=== PATIENT | female | born 1935 | race American Indian/Alaskan Native ===

== ENCOUNTER 2017-12-18 11:23 | Emergency (ER) | payer OTHER ==
[~2017-12-18] VITALS: Ht 152.4 cm; Wt 78.9 kg
[~2017-12-18 11:23] MED LIST: ACET325 PO; ALBU90OI61 INH; ASPI81EC PO; Aspir 8181 MG PO; CELE200; CIPR500 PO; CLOB.05TC; CLOB.05TC TOP; CYCL10 PO; DOCSEN PO; DOCU100 PO; ERGO50000 PO; ESCI10 PO; FAMO20 PO; FERR325 PO; GAVILAX17 GM PO; HYDACE7.5 PO; HYDR1TAB94 PO; LIDO700A20 TOP; METR500 PO; PROAIR RESPICL90 MCG IH; RANI150 PO; SENN187 PO; SIMV10 PO; SULTRIDS PO; TRAM50 PO; VITNEPH PO
[2017-12-18] MEDS ORDERED: Ultram50 MG PO (12:18)
== END 2017-12-18 12:31 | disposition home or self-care (01) ==
LOC: ER 11:23
DX: M53.3 Sacrococcygeal disorders, not elsewhere classified (principal); E11.9 Type 2 diabetes mellitus without complications; I10 Essential (primary) hypertension; Z79.899 Other long term (current) drug therapy; Z79.82 Long term (current) use of aspirin
CPT/HCPCS: 99283

== ENCOUNTER 2018-04-18 14:43 | Emergency (ER) | payer OTHER ==
[~2018-04-18] VITALS: Ht 167.6 cm; Wt 74.8 kg
[~2018-04-18 14:43] MED LIST changes: +Ultram50 MG PO
[2018-04-18 15:39] LABS: BASOPHILS ABSOLUTE AUTO 0.03 K/mm3 (0.00-0.23); BASOPHILS PERCENT AUTO 0 % (0-2); EOSINOPHILS ABSOLUTE AUTO 0.04 K/mm3 (0.00-0.68); EOSINOPHILS PERCENT AUTO 1 % (0-6); Hemoglobin 11.9 g/dL (11.5-16.0); IMMATURE GRAN ABSOLUTE AUTO 0.02 K/mm3 (0.00-0.10); IMMATURE GRAN PERCENT AUTO 0 % (0-1); LYMPHOCYTES ABSOLUTE AUTO 1.55 K/mm3 (0.84-5.20); LYMPHOCYTES PERCENT AUTO 23 % (21-46); MONOCYTES ABSOLUTE AUTO 0.69 K/mm3 (0.16-1.47); MONOCYTES PERCENT AUTO 10 % (4-13); Mean Corpuscular HGB 29.9 pg (26.0-34.0); Mean Corpuscular HGB Conc 33.1 g/dL (31.5-36.5); Mean Corpuscular Volume 91 fL (80-100); Mean Platelet Volume 12.5 fL (9.1-12.4); NEUTROPHILS ABSOLUTE AUTO 4.37 K/mm3 (1.96-9.15); NEUTROPHILS PERCENT AUTO 65 % (41-73); Platelet Count 154 K/mm3 (150-400); RDW Coefficient Variation 14.1 % (11.7-14.2); RDW Standard Deviation 47.1 fL (35.1-46.3); Red Blood Cell Count 3.98 M/mm3 (3.80-5.20)
[2018-04-18 16:00] LABS: Alanine Aminotransfer (ALT/SGP 17 U/L (12-78); Albumin, Blood 3.7 g/dL (3.4-5.0); Albumin/Globulin Ratio 1.2 (0.8-1.8); Alk Phos 91 U/L (50-136); Anion Gap 8 mmol/L (6-16); Aspartate Aminotrans (AST/SGOT 13 U/L (12-37); Bilirubin, Total 0.4 mg/dL (0.1-1.0); Blood Urea Nitrogen 13 mg/dL (8-24); Bun/Creatinine Ratio 19.5 (12.0-20.0); CO2, Blood 27 mmol/L (21-32); Calcium, Blood 8.6 mg/dL (8.5-10.1); Chloride, Blood 111 mmol/L (98-108); Creatinine, Blood 0.67 mg/dL (0.40-1.00); Ethanol (Alcohol), Blood, Med <3 mg/dL; Globulin, Blood 3.1 g/dL (2.2-4.0); Glomerular Filtration Rate >60 (60-); Glucose, Blood 86 mg/dL (70-99); Sodium, Blood 146 mmol/L (136-145); Total Protein, Blood 6.8 g/dL (6.4-8.2); Troponin I <0.015 ng/mL (0.000-0.040)
[2018-04-18 16:39] LABS: Source, Urine Clean Catch
[2018-04-18 16:43] LABS: Bilirubin, Urine Neg (Neg); Blood, Urine Neg (Neg); Glucose Qualitative, Urine Neg (Neg); Ketones, Urine Neg (Neg); Leukocyte Esterase, Urine Neg (Neg); Nitrite, Urine Neg (Neg); Protein, Urine Neg (Neg); Urobilinogen, Urine NORM (Normal); pH, Urine 6.5 (5.0-8.0)
[2018-04-18 16:59] LABS: Appearance, Urine Clear (Clear); Color, Urine Yellow (P-Yellow)
[2018-04-18 17:05] LABS: U Amphetamine Screen Not Detected; U Barbituate Screen Not Detected; U Benzodiazapine Screen Not Detected; U Buprenorphine Screen Not Detected; U Cannabinoids Screen Not Detected; U Cocaine Screen Not Detected; U Methadone Screen Not Detected; U Methamphetamine Screen Not Detected; U Opiates Screen Not Detected; U Oxycodone Screen Not Detected; U Phencyclidine Screen Not Detected; U Propoxyphene Screen Not Detected
== END 2018-04-18 17:45 | disposition home or self-care (01) ==
LOC: ER 14:43
PROVIDERS: Emergency Medicine
DX: I10 Essential (primary) hypertension (principal); F32.9 Major depressive disorder, single episode, unspecified; Z79.899 Other long term (current) drug therapy; Z79.82 Long term (current) use of aspirin; E11.9 Type 2 diabetes mellitus without complications
CPT/HCPCS: 36415; 71046; 80053; 81003; 84443; 84484; 85025; 93005; 93010; 96374; 99283; G0480; J2060

== ENCOUNTER 2018-06-25 16:30 | Emergency (ER) | payer OTHER ==
[~2018-06-25] VITALS: Ht 152.4 cm; Wt 77.6 kg
[2018-06-25 17:28] LABS: Alanine Aminotransfer (ALT/SGP 17 U/L (12-78); Albumin/Globulin Ratio 1.1 (0.8-1.8); Alk Phos 107 U/L (50-136); Anion Gap 7 mmol/L (6-16); Aspartate Aminotrans (AST/SGOT 14 U/L (12-37); Bilirubin, Total 0.5 mg/dL (0.1-1.0); Blood Urea Nitrogen 15 mg/dL (8-24); CO2, Blood 28 mmol/L (21-32); Calcium, Blood 8.9 mg/dL (8.5-10.1); Chloride, Blood 108 mmol/L (98-108); Creatinine, Blood 0.68 mg/dL (0.40-1.00); Globulin, Blood 3.6 g/dL (2.2-4.0); Glomerular Filtration Rate >60 (60-); Glucose, Blood 78 mg/dL (70-99); Potassium, Blood 3.9 mmol/L (3.5-5.5); Sodium, Blood 143 mmol/L (136-145); Total Protein, Blood 7.6 g/dL (6.4-8.2); Troponin I <0.015 ng/mL (0.000-0.040)
[2018-06-25 17:29] LABS: BASOPHILS ABSOLUTE AUTO 0.04 K/mm3 (0.00-0.23); BASOPHILS PERCENT AUTO 1 % (0-2); EOSINOPHILS ABSOLUTE AUTO 0.04 K/mm3 (0.00-0.68); EOSINOPHILS PERCENT AUTO 1 % (0-6); Hematocrit 38.4 % (33.0-51.0); Hemoglobin 12.4 g/dL (11.5-16.0); IMMATURE GRAN ABSOLUTE AUTO 0.01 K/mm3 (0.00-0.10); IMMATURE GRAN PERCENT AUTO 0 % (0-1); LYMPHOCYTES ABSOLUTE AUTO 1.83 K/mm3 (0.84-5.20); LYMPHOCYTES PERCENT AUTO 26 % (21-46); MONOCYTES ABSOLUTE AUTO 0.68 K/mm3 (0.16-1.47); MONOCYTES PERCENT AUTO 10 % (4-13); Mean Corpuscular HGB 29.4 pg (26.0-34.0); Mean Corpuscular HGB Conc 32.3 g/dL (31.5-36.5); Mean Corpuscular Volume 91 fL (80-100); Mean Platelet Volume 11.7 fL (9.1-12.4); NEUTROPHILS ABSOLUTE AUTO 4.32 K/mm3 (1.96-9.15); NEUTROPHILS PERCENT AUTO 63 % (41-73); Platelet Count 167 K/mm3 (150-400); RDW Coefficient Variation 13.6 % (11.7-14.2); RDW Standard Deviation 45.7 fL (35.1-46.3); Red Blood Cell Count 4.22 M/mm3 (3.80-5.20); White Blood Cell Count 6.92 K/mm3 (4.00-11.30)
[2018-06-25 19:30] LABS: Source, Urine Clean Catch
[2018-06-25 19:42] LABS: Bilirubin, Urine Neg (Neg); Blood, Urine 1+ (Neg); Glucose Qualitative, Urine Neg (Neg); Ketones, Urine 2+ (Neg); Leukocyte Esterase, Urine 2+ (Neg); Nitrite, Urine Neg (Neg); Protein, Urine Neg (Neg); Urobilinogen, Urine NORM (Normal)
[2018-06-25 19:48] LABS: Appearance, Urine Hazy (Clear); Color, Urine Yellow (P-Yellow)
[2018-06-25 19:50] LABS: Bacteria Few /hpf; Squamous Epithelial Cells Few /hpf (Few)
[2018-06-25] MEDS ORDERED: Macrobid 100 M100 MG PO (19:58)
== END 2018-06-25 20:06 | disposition home or self-care (01) ==
LOC: ER 16:30
PROVIDERS: Emergency Medicine; Physician Assistant
DX: R07.89 Other chest pain (principal); N39.0 Urinary tract infection, site not specified; F32.9 Major depressive disorder, single episode, unspecified; E11.9 Type 2 diabetes mellitus without complications; I10 Essential (primary) hypertension; Z79.899 Other long term (current) drug therapy; Z79.82 Long term (current) use of aspirin
CPT/HCPCS: 36415; 71046; 80053; 81001; 84484; 85025; 87086; 87147; 93005; 93010; 99285-25

== ENCOUNTER 2019-07-27 20:24 | Emergency (ER) | payer OTHER ==
[~2019-07-27] VITALS: Ht 152.4 cm; Wt 72.5 kg
[~2019-07-27 20:24] MED LIST changes: +Macrobid 100 M100 MG PO
[2019-07-27 21:41] LABS: BASOPHILS ABSOLUTE AUTO 0.03 K/mm3 (0.00-0.23); BASOPHILS PERCENT AUTO 0 % (0-2); EOSINOPHILS PERCENT AUTO 1 % (0-6); Hematocrit 37.9 % (33.0-51.0); Hemoglobin 12.3 g/dL (11.5-16.0); IMMATURE GRAN ABSOLUTE AUTO 0.03 K/mm3 (0.00-0.10); IMMATURE GRAN PERCENT AUTO 0 % (0-1); LYMPHOCYTES ABSOLUTE AUTO 1.92 K/mm3 (0.84-5.20); LYMPHOCYTES PERCENT AUTO 26 % (21-46); MONOCYTES ABSOLUTE AUTO 0.96 K/mm3 (0.16-1.47); MONOCYTES PERCENT AUTO 13 % (4-13); Mean Corpuscular HGB 30.8 pg (26.0-34.0); Mean Corpuscular HGB Conc 32.5 g/dL (31.5-36.5); Mean Corpuscular Volume 95 fL (80-100); Mean Platelet Volume 11.7 fL (9.1-12.4); NEUTROPHILS ABSOLUTE AUTO 4.31 K/mm3 (1.96-9.15); NEUTROPHILS PERCENT AUTO 59 % (41-73); Platelet Count 151 K/mm3 (150-400); RDW Coefficient Variation 14.1 % (11.7-14.2); RDW Standard Deviation 49.1 fL (35.1-46.3); Red Blood Cell Count 3.99 M/mm3 (3.80-5.20); White Blood Cell Count 7.35 K/mm3 (4.00-11.30)
[2019-07-27 22:01] LABS: Alanine Aminotransfer (ALT/SGP 12 U/L (12-78); Albumin, Blood 3.5 g/dL (3.4-5.0); Albumin/Globulin Ratio 1.1 (0.8-1.8); Alk Phos 105 U/L (50-136); Anion Gap 4 mmol/L (6-16); Aspartate Aminotrans (AST/SGOT 12 U/L (12-37); Bilirubin, Total 0.3 mg/dL (0.1-1.0); Blood Urea Nitrogen 17 mg/dL (8-24); Bun/Creatinine Ratio 19.2 (12.0-20.0); CO2, Blood 30 mmol/L (21-32); Calcium, Blood 8.5 mg/dL (8.5-10.1); Chloride, Blood 113 mmol/L (98-108); Creatinine, Blood 0.89 mg/dL (0.40-1.00); Globulin, Blood 3.2 g/dL (2.2-4.0); Glomerular Filtration Rate >60 (60-); Glucose, Blood 116 mg/dL (70-99); Potassium, Blood 4.1 mmol/L (3.5-5.5); Sodium, Blood 147 mmol/L (136-145); Total Protein, Blood 6.7 g/dL (6.4-8.2); Troponin I <0.015 ng/mL (0.000-0.040)
[2019-07-27] MEDS ORDERED: IBUP600 PO (22:34)
== END 2019-07-27 22:45 | disposition home or self-care (01) ==
LOC: ER 20:24
PROVIDERS: Emergency Medicine
DX: M94.0 Chondrocostal junction syndrome [Tietze] (principal); Z79.82 Long term (current) use of aspirin; E11.9 Type 2 diabetes mellitus without complications; I10 Essential (primary) hypertension
CPT/HCPCS: 36415; 71046; 80053; 84484; 85025; 93005; 93010; 99284-25

== ENCOUNTER 2019-08-16 14:41 | Emergency (ER) | payer OTHER ==
[~2019-08-16] VITALS: Ht 152.4 cm; Wt 83.9 kg
[~2019-08-16 14:41] MED LIST changes: +IBUP600 PO
[2019-08-16] MEDS ORDERED: HYDR1TAB94 PO (16:25)
== END 2019-08-16 16:30 | disposition home or self-care (01) ==
LOC: ER 14:41
DX: S20.211A Contusion of right front wall of thorax, initial encounter (principal); I10 Essential (primary) hypertension; E11.9 Type 2 diabetes mellitus without complications; Z87.891 Personal history of nicotine dependence; Z79.82 Long term (current) use of aspirin; X50.0XXA Overexertion from strenuous movement or load, initial encounter
CPT/HCPCS: 71046; 99283-25

== ENCOUNTER 2019-09-04 11:24 | Emergency (ER) | payer OTHER ==
[~2019-09-04] VITALS: Ht 152.4 cm; Wt 68.0 kg
[2019-09-04] MEDS ORDERED: TRAM50 PO (12:20)
[2019-09-04] MEDS ORDERED: LIDO700A20 TOP (12:20)
== END 2019-09-04 12:28 | disposition home or self-care (01) ==
LOC: ER 11:24
DX: R07.81 Pleurodynia (principal); E11.9 Type 2 diabetes mellitus without complications; I10 Essential (primary) hypertension; Z87.891 Personal history of nicotine dependence; Z79.899 Other long term (current) drug therapy
CPT/HCPCS: 71046; 99283-25

== ENCOUNTER 2019-09-22 11:43 | Emergency (ER) | payer OTHER ==
[~2019-09-22] VITALS: Ht 152.4 cm; Wt 74.8 kg
[2019-09-22] MEDS ORDERED: Aspir 8181 MG PO (11:50)
== END 2019-09-22 13:29 | disposition home or self-care (01) ==
LOC: ER 11:43
DX: J02.9 Acute pharyngitis, unspecified (principal); Z79.82 Long term (current) use of aspirin; I10 Essential (primary) hypertension; E11.9 Type 2 diabetes mellitus without complications; Z87.891 Personal history of nicotine dependence
CPT/HCPCS: 99282

== ENCOUNTER 2019-11-08 10:07 | Emergency (ER) | payer OTHER ==
[~2019-11-08] VITALS: Ht 157.5 cm; Wt 63.5 kg
== END 2019-11-08 10:58 | disposition home or self-care (01) ==
LOC: ER 10:07
DX: F41.9 Anxiety disorder, unspecified (principal); Z79.82 Long term (current) use of aspirin; E11.9 Type 2 diabetes mellitus without complications; I10 Essential (primary) hypertension
CPT/HCPCS: 93005; 93010; 99283-25

== ENCOUNTER 2019-12-31 16:41 | Emergency (ER) | payer OTHER ==
[~2019-12-31] VITALS: Ht 152.4 cm; Wt 63.5 kg
[2019-12-31] MEDS ORDERED: Ultram50 MG PO (21:21)
== END 2019-12-31 21:36 | disposition home or self-care (01) ==
LOC: ER 16:41
DX: S39.012A Strain of muscle, fascia and tendon of lower back, initial encounter (principal); S40.011A Contusion of right shoulder, initial encounter; S22.089D Unspecified fracture of T11-T12 vertebra, subsequent encounter for fracture with routine healing; X58.XXXA Exposure to other specified factors, initial encounter; E11.9 Type 2 diabetes mellitus without complications; I10 Essential (primary) hypertension; J44.9 Chronic obstructive pulmonary disease, unspecified; F32.9 Major depressive disorder, single episode, unspecified; Z79.82 Long term (current) use of aspirin
CPT/HCPCS: 72100; 73030; 99283-25

== ENCOUNTER → 2020-08-09 | Outpatient (CLI) | payer OTHER ==
[2020-08-09 14:27] LABS: Alanine Aminotransfer (ALT/SGP 13 U/L (12-78); Albumin, Blood 3.6 g/dL (3.4-5.0); Albumin/Globulin Ratio 1.1 (0.8-1.8); Alk Phos 107 U/L (40-126); Anion Gap 4 mmol/L (6-16); Aspartate Aminotrans (AST/SGOT 17 U/L (12-37); Bilirubin, Total 0.4 mg/dL (0.1-1.0); Blood Urea Nitrogen 12 mg/dL (8-24); Bun/Creatinine Ratio 23.5 (12.0-20.0); CO2, Blood 31 mmol/L (21-32); Calcium, Blood 8.7 mg/dL (8.5-10.1); Chloride, Blood 105 mmol/L (98-108); Creatinine, Blood 0.51 mg/dL (0.40-1.00); Globulin, Blood 3.4 g/dL (2.2-4.0); Glomerular Filtration Rate >60 (60-); Glucose, Blood 100 mg/dL (70-99); Potassium, Blood 4.9 mmol/L (3.5-5.5); Sodium, Blood 140 mmol/L (136-145)
[2020-08-09 14:41] LABS: BASOPHILS ABSOLUTE AUTO 0.03 K/mm3 (0.00-0.23); BASOPHILS PERCENT AUTO 1 % (0-2); EOSINOPHILS ABSOLUTE AUTO 0.07 K/mm3 (0.00-0.68); EOSINOPHILS PERCENT AUTO 1 % (0-6); Hematocrit 33.3 % (33.0-51.0); Hemoglobin 11.1 g/dL (11.5-16.0); IMMATURE GRAN ABSOLUTE AUTO 0.03 K/mm3 (0.00-0.10); IMMATURE GRAN PERCENT AUTO 1 % (0-1); LYMPHOCYTES ABSOLUTE AUTO 1.36 K/mm3 (0.84-5.20); LYMPHOCYTES PERCENT AUTO 21 % (21-46); MONOCYTES ABSOLUTE AUTO 0.98 K/mm3 (0.16-1.47); MONOCYTES PERCENT AUTO 15 % (4-13); Mean Corpuscular HGB 32.6 pg (26.0-34.0); Mean Corpuscular HGB Conc 33.3 g/dL (31.5-36.5); Mean Corpuscular Volume 98 fL (80-100); Mean Platelet Volume 11.3 fL (9.1-12.4); NEUTROPHILS PERCENT AUTO 62 % (41-73); Platelet Count 142 K/mm3 (150-400); RDW Coefficient Variation 14.1 % (11.7-14.2); White Blood Cell Count 6.57 K/mm3 (4.00-11.30)
== END | disposition home or self-care (01) ==
LOC: LAB EV 14:11 → LAB SHORT 14:11
PROVIDERS: Physician Assistant
DX: R06.02 Shortness of breath (principal)
CPT/HCPCS: 80053; 83880; 85025

== ENCOUNTER 2021-04-13 18:55 | Emergency (ER) | payer OTHER ==
[~2021-04-13] VITALS: Ht 152.4 cm; Wt 68.0 kg
== END 2021-04-13 23:26 | disposition home or self-care (01) ==
LOC: ER 18:55
DX: M54.5 Low back pain (principal); E11.9 Type 2 diabetes mellitus without complications; I10 Essential (primary) hypertension; J44.9 Chronic obstructive pulmonary disease, unspecified; Z79.82 Long term (current) use of aspirin; Z87.891 Personal history of nicotine dependence; W10.9XXA Fall (on) (from) unspecified stairs and steps, initial encounter
CPT/HCPCS: 72192; 73502; 99284-25

== ENCOUNTER → 2021-06-22 | Outpatient (CLI) | payer OTHER ==
[2021-06-22 15:38] LABS: Hemoglobin 10.1 g/dL (11.5-16.0); Mean Corpuscular HGB 34.8 pg (26.0-34.0); Mean Corpuscular HGB Conc 32.6 g/dL (31.5-36.5); Mean Corpuscular Volume 107 fL (80-100); Mean Platelet Volume 12.3 fL (9.1-12.4); Platelet Count 183 K/mm3 (150-400); RDW Coefficient Variation 14.9 % (11.7-14.2); RDW Standard Deviation 58.7 fL (35.1-46.3); White Blood Cell Count 5.25 K/mm3 (4.00-11.30)
[2021-06-22 16:28] LABS: Percent Saturation 33.9 % (15.0-50.0)
== END | disposition home or self-care (01) ==
LOC: LAB SHORT 13:10 → LAB 13:10
PROVIDERS: Family Medicine
DX: I10 Essential (primary) hypertension (principal); D50.9 Iron deficiency anemia, unspecified; F41.9 Anxiety disorder, unspecified; D51.9 Vitamin B12 deficiency anemia, unspecified
CPT/HCPCS: 82607; 82728; 82746; 83540; 83550; 85027

== ENCOUNTER → 2021-07-22 | Outpatient (CLI) | payer OTHER ==
[2021-07-22 17:46] LABS: BASOPHILS ABSOLUTE AUTO 0.02 K/mm3 (0.00-0.23); BASOPHILS PERCENT AUTO 0 % (0-2); EOSINOPHILS ABSOLUTE AUTO 0.05 K/mm3 (0.00-0.68); EOSINOPHILS PERCENT AUTO 1 % (0-6); Hematocrit 30.4 % (33.0-51.0); IMMATURE GRAN ABSOLUTE AUTO 0.03 K/mm3 (0.00-0.10); IMMATURE GRAN PERCENT AUTO 1 % (0-1); LYMPHOCYTES ABSOLUTE AUTO 1.23 K/mm3 (0.84-5.20); LYMPHOCYTES PERCENT AUTO 24 % (21-46); MONOCYTES ABSOLUTE AUTO 0.91 K/mm3 (0.16-1.47); MONOCYTES PERCENT AUTO 18 % (4-13); Mean Corpuscular HGB 35.7 pg (26.0-34.0); Mean Corpuscular HGB Conc 32.9 g/dL (31.5-36.5); Mean Corpuscular Volume 109 fL (80-100); Mean Platelet Volume 12.4 fL (9.1-12.4); NEUTROPHILS ABSOLUTE AUTO 2.96 K/mm3 (1.96-9.15); NEUTROPHILS PERCENT AUTO 57 % (41-73); Platelet Count 161 K/mm3 (150-400); RDW Coefficient Variation 14.7 % (11.7-14.2); RDW Standard Deviation 58.7 fL (35.1-46.3)
[2021-07-22 18:08] LABS: Alanine Aminotransfer (ALT/SGP 14 U/L (12-78); Albumin, Blood 3.7 g/dL (3.4-5.0); Albumin/Globulin Ratio 1.2 (0.8-1.8); Alk Phos 95 U/L (50-136); Anion Gap 3 mmol/L (6-16); Aspartate Aminotrans (AST/SGOT 9 U/L (12-37); Blood Urea Nitrogen 13 mg/dL (8-24); Bun/Creatinine Ratio 21.1 (12.0-20.0); CO2, Blood 28 mmol/L (21-32); Calcium, Blood 8.7 mg/dL (8.5-10.1); Chloride, Blood 109 mmol/L (98-108); Creatinine, Blood 0.62 mg/dL (0.40-1.00); Glomerular Filtration Rate >60 (60-); Glucose, Blood 83 mg/dL (70-99); Potassium, Blood 4.3 mmol/L (3.5-5.5); Sodium, Blood 140 mmol/L (136-145); Total Protein, Blood 6.7 g/dL (6.4-8.2)
== END | disposition home or self-care (01) ==
LOC: LAB SHORT 16:32
PROVIDERS: Family Medicine
DX: E11.9 Type 2 diabetes mellitus without complications (principal); D53.9 Nutritional anemia, unspecified; R41.3 Other amnesia
CPT/HCPCS: 80053; 83036; 84443; 85025; 85651

== ENCOUNTER 2021-08-10 20:39 | Emergency (ER) | payer OTHER ==
[~2021-08-10] VITALS: Ht 152.4 cm; Wt 54.4 kg
[2021-08-10 21:11] LABS: Source, Urine Voided
[2021-08-10 21:13] LABS: Blood, Urine 5+ (Neg); Glucose Qualitative, Urine Neg (Neg); Ketones, Urine Neg (Neg); Leukocyte Esterase, Urine 2+ (Neg); Nitrite, Urine Neg (Neg); Protein, Urine 3+ (Neg); Specific Gravity, Urine 1.015 (1.003-1.022); Urobilinogen, Urine 4+ (Normal); pH, Urine 6.5 (5.0-8.0)
[2021-08-10 21:20] LABS: BASOPHILS ABSOLUTE AUTO 0.04 K/mm3 (0.00-0.23); BASOPHILS PERCENT AUTO 0 % (0-2); EOSINOPHILS ABSOLUTE AUTO 0.02 K/mm3 (0.00-0.68); EOSINOPHILS PERCENT AUTO 0 % (0-6); Hematocrit 30.3 % (33.0-51.0); Hemoglobin 10.1 g/dL (11.5-16.0); IMMATURE GRAN ABSOLUTE AUTO 0.07 K/mm3 (0.00-0.10); IMMATURE GRAN PERCENT AUTO 1 % (0-1); LYMPHOCYTES ABSOLUTE AUTO 0.63 K/mm3 (0.84-5.20); LYMPHOCYTES PERCENT AUTO 6 % (21-46); MONOCYTES ABSOLUTE AUTO 2.36 K/mm3 (0.16-1.47); MONOCYTES PERCENT AUTO 24 % (4-13); Mean Corpuscular HGB 35.6 pg (26.0-34.0); Mean Corpuscular HGB Conc 33.3 g/dL (31.5-36.5); Mean Corpuscular Volume 107 fL (80-100); Mean Platelet Volume 12.8 fL (9.1-12.4); NEUTROPHILS ABSOLUTE AUTO 6.89 K/mm3 (1.96-9.15); NEUTROPHILS PERCENT AUTO 69 % (41-73); Platelet Count 159 K/mm3 (150-400); RDW Coefficient Variation 14.2 % (11.7-14.2); RDW Standard Deviation 55.3 fL (35.1-46.3); Red Blood Cell Count 2.84 M/mm3 (3.80-5.20); White Blood Cell Count 10.01 K/mm3 (4.00-11.30)
[2021-08-10 21:22] LABS: Bilirubin, Urine 1+ (Neg)
[2021-08-10 21:23] LABS: Appearance, Urine Cloudy (Clear); Color, Urine Amber (P-Yellow)
[2021-08-10 21:26] LABS: Bacteria Few /hpf; Red Blood Cells, Urine TNTC /hpf (0-2); Squamous Epithelial Cells Few /hpf (Few)
[2021-08-10 21:37] LABS: Alanine Aminotransfer (ALT/SGP 226 U/L (12-78); Albumin, Blood 3.7 g/dL (3.4-5.0); Albumin/Globulin Ratio 1.2 (0.8-1.8); Alk Phos 210 U/L (50-136); Anion Gap 7 mmol/L (6-16); Aspartate Aminotrans (AST/SGOT 427 U/L (12-37); Bilirubin, Total 1.6 mg/dL (0.1-1.0); Blood Urea Nitrogen 14 mg/dL (8-24); Bun/Creatinine Ratio 26.8 (12.0-20.0); CO2, Blood 26 mmol/L (21-32); Calcium, Blood 8.7 mg/dL (8.5-10.1); Chloride, Blood 109 mmol/L (98-108); Creatinine, Blood 0.52 mg/dL (0.40-1.00); Globulin, Blood 3.2 g/dL (2.2-4.0); Glomerular Filtration Rate >60 (60-); Glucose, Blood 132 mg/dL (70-99); Potassium, Blood 4.1 mmol/L (3.5-5.5); Sodium, Blood 142 mmol/L (136-145); Total Protein, Blood 6.9 g/dL (6.4-8.2)
[2021-08-10] MEDS ORDERED: CEPH500 PO (22:14)
[2021-08-10] MEDS ORDERED: Pyridium100 MG PO (22:14)
[2021-08-10] MEDS ORDERED: PROBIOTIC1 EA13 PO (22:14)
== END 2021-08-10 22:54 | disposition home or self-care (01) ==
LOC: ER 20:39
PROVIDERS: Emergency Medicine; Physician Assistant
DX: N39.0 Urinary tract infection, site not specified (principal); R79.89 Other specified abnormal findings of blood chemistry; I10 Essential (primary) hypertension; E11.9 Type 2 diabetes mellitus without complications; J44.9 Chronic obstructive pulmonary disease, unspecified; Z79.899 Other long term (current) drug therapy; Z79.82 Long term (current) use of aspirin; Z87.891 Personal history of nicotine dependence
CPT/HCPCS: 36415; 80053; 81001; 85025; 87086; 99283; A9270

== ENCOUNTER 2021-09-09 01:39 | Emergency (ER) | payer OTHER ==
[~2021-09-09] VITALS: Ht 160 cm; Wt 59.0 kg
[~2021-09-09 01:39] MED LIST changes: +CEPH500 PO; +PROBIOTIC1 EA13 PO; +Pyridium100 MG PO
[2021-09-09 02:44] LABS: Source, Urine Clean Catch
[2021-09-09 02:50] LABS: Appearance, Urine Cloudy (Clear); Bilirubin, Urine Neg (Neg); Blood, Urine 5+ (Neg); Color, Urine Amber (P-Yellow); Glucose Qualitative, Urine Neg (Neg); Ketones, Urine 1+ (Neg); Leukocyte Esterase, Urine 1+ (Neg); Nitrite, Urine Neg (Neg); Protein, Urine 3+ (Neg); Specific Gravity, Urine 1.025 (1.003-1.022); Urobilinogen, Urine NORM (Normal)
[2021-09-09 02:59] LABS: Amorphous Light (0-Heavy); Bacteria Many /hpf; Red Blood Cells, Urine TNTC /hpf (0-2); Squamous Epithelial Cells Few /hpf (Few); Yeast/Fungi Urine Many /hpf
[2021-09-09 03:03] LABS: BASOPHILS ABSOLUTE AUTO 0.03 K/mm3 (0.00-0.23); BASOPHILS PERCENT AUTO 1 % (0-2); EOSINOPHILS ABSOLUTE AUTO 0.08 K/mm3 (0.00-0.68); EOSINOPHILS PERCENT AUTO 2 % (0-6); IMMATURE GRAN ABSOLUTE AUTO 0.02 K/mm3 (0.00-0.10); IMMATURE GRAN PERCENT AUTO 0 % (0-1); LYMPHOCYTES ABSOLUTE AUTO 1.05 K/mm3 (0.84-5.20); LYMPHOCYTES PERCENT AUTO 21 % (21-46); MONOCYTES ABSOLUTE AUTO 1.07 K/mm3 (0.16-1.47); MONOCYTES PERCENT AUTO 22 % (4-13); Mean Corpuscular HGB 35.3 pg (26.0-34.0); Mean Corpuscular HGB Conc 33.3 g/dL (31.5-36.5); Mean Corpuscular Volume 106 fL (80-100); Mean Platelet Volume 12.1 fL (9.1-12.4); NEUTROPHILS ABSOLUTE AUTO 2.69 K/mm3 (1.96-9.15); NEUTROPHILS PERCENT AUTO 54 % (41-73); Platelet Count 157 K/mm3 (150-400); RDW Coefficient Variation 14.7 % (11.7-14.2); RDW Standard Deviation 56.8 fL (35.1-46.3); Red Blood Cell Count 2.55 M/mm3 (3.80-5.20); White Blood Cell Count 4.94 K/mm3 (4.00-11.30)
[2021-09-09 03:18] LABS: Anion Gap 5 mmol/L (6-16); Blood Urea Nitrogen 12 mg/dL (8-24); Bun/Creatinine Ratio 20.8 (12.0-20.0); CO2, Blood 30 mmol/L (21-32); Calcium, Blood 8.6 mg/dL (8.5-10.1); Chloride, Blood 107 mmol/L (98-108); Creatinine, Blood 0.58 mg/dL (0.40-1.00); Glomerular Filtration Rate >60 (60-); Glucose, Blood 99 mg/dL (70-99); Potassium, Blood 3.5 mmol/L (3.5-5.5); Sodium, Blood 142 mmol/L (136-145)
[2021-09-09] MEDS ORDERED: IBUP400 PO (05:32)
[2021-09-09] MEDS ORDERED: TAMS.4ER PO (05:32)
[2021-09-09] MEDS ORDERED: Acetaminophen650 M1 PO (05:32)
== END 2021-09-09 07:16 | disposition home or self-care (01) ==
LOC: ER 01:39
PROVIDERS: Student in an Organized Health Care Education/Training Program
DX: N13.2 Hydronephrosis with renal and ureteral calculous obstruction (principal); E11.9 Type 2 diabetes mellitus without complications; I10 Essential (primary) hypertension; J44.9 Chronic obstructive pulmonary disease, unspecified; M19.90 Unspecified osteoarthritis, unspecified site; Z87.891 Personal history of nicotine dependence; Z79.82 Long term (current) use of aspirin; Z79.899 Other long term (current) drug therapy
CPT/HCPCS: 36415; 74176; 80048; 81001; 85025; 87086; 96374; 96375; 99284-25; J1885; J2270; J2405

== ENCOUNTER → 2021-11-11 | Outpatient (CLI) | payer OTHER ==
[~2021-11-11] MED LIST changes: +Acetaminophen650 M1 PO; +IBUP400 PO; +TAMS.4ER PO
== END | disposition home or self-care (01) ==
LOC: LAB SHORT 13:00
DX: R31.9 Hematuria, unspecified (principal)
CPT/HCPCS: 88108

== ENCOUNTER → 2022-03-09 | Outpatient (CLI) | payer OTHER ==
[2022-03-09 17:24] LABS: Source, Urine Voided
[2022-03-09 18:14] LABS: Appearance, Urine Hazy (Clear); Bilirubin, Urine Neg (Neg); Blood, Urine Neg (Neg); Color, Urine Yellow (P-Yellow); Glucose Qualitative, Urine Neg (Neg); Ketones, Urine Neg (Neg); Leukocyte Esterase, Urine Neg (Neg); Nitrite, Urine Neg (Neg); Protein, Urine Neg (Neg); Specific Gravity, Urine 1.015 (1.003-1.022); Urobilinogen, Urine NORM (Normal)
[2022-03-09 18:43] LABS: Amorphous Mod (0-Heavy); Bacteria Mod /hpf; Calcium Oxalate Crystals Rare /hpf; Mucus Light (0-Heavy); Red Blood Cells, Urine 0-2 /hpf (0-2); Squamous Epithelial Cells Few /hpf (Few)
== END | disposition home or self-care (01) ==
LOC: LAB SHORT 15:10 → LAB 15:10
PROVIDERS: Internal Medicine Hematology & Oncology
DX: R41.82 Altered mental status, unspecified (principal)
CPT/HCPCS: 81001; 87086

== ENCOUNTER → 2022-07-06 | Outpatient (CLI) | payer OTHER ==
[~2022-07-06] MED LIST changes: +ADULT GLYCERIN1 EACH PR; +BISA5EC PO; +FURO20 PO; +Fleet Enema132 ML PR
[2022-07-06 17:43] LABS: Source, Urine Clean Catch
[2022-07-06 19:13] LABS: Appearance, Urine Hazy (Clear); Bilirubin, Urine Neg (Neg); Blood, Urine Neg (Neg); Color, Urine Amber (P-Yellow); Glucose Qualitative, Urine Neg (Neg); Ketones, Urine Neg (Neg); Leukocyte Esterase, Urine 1+ (Neg); Nitrite, Urine Neg (Neg); Protein, Urine 1+ (Neg); Urobilinogen, Urine 2+ (Normal)
[2022-07-06 19:58] LABS: Amorphous Mod (0-Heavy); Bacteria Mod /hpf; Mucus Light (0-Heavy); Red Blood Cells, Urine 0-2 /hpf (0-2)
[2022-07-06 19:59] LABS: Transitional Epithelial Cells Few /hpf (0-Rare)
[2022-07-06 20:00] LABS: Calcium Oxalate Crystals Mod /hpf; Hyaline Casts 0-2 /lpf (0-2); Squamous Epithelial Cells Rare /hpf (Few)
== END | disposition home or self-care (01) ==
LOC: LAB 16:06 → LAB SHORT 16:06
PROVIDERS: Internal Medicine Hematology & Oncology
DX: R30.0 Dysuria (principal)
CPT/HCPCS: 81001; 87086

== ENCOUNTER 2022-08-03 15:22 | Emergency (ER) | payer OTHER ==
[~2022-08-03] VITALS: Ht 152.4 cm; Wt 45.4 kg
[2022-08-03 16:42] LABS: BASOPHILS ABSOLUTE AUTO 0.02 K/mm3 (0.00-0.23); BASOPHILS PERCENT AUTO 0 % (0-2); EOSINOPHILS ABSOLUTE AUTO 0.01 K/mm3 (0.00-0.68); EOSINOPHILS PERCENT AUTO 0 % (0-6); IMMATURE GRAN ABSOLUTE AUTO 0.09 K/mm3 (0.00-0.10); IMMATURE GRAN PERCENT AUTO 1 % (0-1); LYMPHOCYTES ABSOLUTE AUTO 0.95 K/mm3 (0.84-5.20); LYMPHOCYTES PERCENT AUTO 11 % (21-46); MONOCYTES ABSOLUTE AUTO 1.07 K/mm3 (0.16-1.47); MONOCYTES PERCENT AUTO 13 % (4-13); Mean Corpuscular HGB 36.4 pg (26.0-34.0); Mean Corpuscular HGB Conc 33.3 g/dL (31.5-36.5); Mean Corpuscular Volume 109 fL (80-100); Mean Platelet Volume 12.8 fL (9.1-12.4); NEUTROPHILS ABSOLUTE AUTO 6.38 K/mm3 (1.96-9.15); NEUTROPHILS PERCENT AUTO 75 % (41-73); Platelet Count 195 K/mm3 (150-400); RDW Coefficient Variation 19.5 % (11.7-14.2); RDW Standard Deviation 76.9 fL (35.1-46.3); Red Blood Cell Count 2.47 M/mm3 (3.80-5.20); White Blood Cell Count 8.52 K/mm3 (4.00-11.30)
[2022-08-03 17:02] LABS: Albumin, Blood 2.6 g/dL (3.4-5.0); Albumin/Globulin Ratio 0.7 (0.8-1.8); Bilirubin, Total 5.2 mg/dL (0.1-1.0); Bun/Creatinine Ratio 22.7 (12.0-20.0); Creatinine, Blood 0.57 mg/dL (0.40-1.00); Globulin, Blood 3.6 g/dL (2.2-4.0); Potassium, Blood 4.2 mmol/L (3.5-5.5); Total Protein, Blood 6.2 g/dL (6.4-8.2)
== END 2022-08-03 20:20 | disposition home or self-care (01) ==
LOC: ER 15:22
PROVIDERS: Physician Assistant
DX: R53.1 Weakness (principal); E11.9 Type 2 diabetes mellitus without complications; I10 Essential (primary) hypertension; J44.9 Chronic obstructive pulmonary disease, unspecified; Z87.442 Personal history of urinary calculi; Z87.440 Personal history of urinary (tract) infections; Z87.891 Personal history of nicotine dependence
CPT/HCPCS: 80053; 85025; 93005; 93010; 99284-25

== ENCOUNTER 2022-08-11 12:23 | Emergency (ER) | payer OTHER ==
[~2022-08-11] VITALS: Ht 152.4 cm; Wt 49.9 kg
[2022-08-11 13:08] LABS: Hematocrit 27.9 % (33.0-51.0); Mean Corpuscular HGB Conc 32.3 g/dL (31.5-36.5); Mean Corpuscular Volume 112 fL (80-100); Mean Platelet Volume 12.8 fL (9.1-12.4); Platelet Count 245 K/mm3 (150-400); RDW Coefficient Variation 20.3 % (11.7-14.2); RDW Standard Deviation 82.4 fL (35.1-46.3)
[2022-08-11 13:09] LABS: White Blood Cell Count 6.68 K/mm3 (4.00-11.30)
[2022-08-11 13:30] LABS: Albumin, Blood 2.5 g/dL (3.4-5.0); Albumin/Globulin Ratio 0.6 (0.8-1.8); Bilirubin, Total 4.7 mg/dL (0.1-1.0); Bun/Creatinine Ratio 29.3 (12.0-20.0); Calcium, Blood 8.7 mg/dL (8.5-10.1); Creatinine, Blood 0.48 mg/dL (0.40-1.00); Globulin, Blood 4.3 g/dL (2.2-4.0); Potassium, Blood 4.4 mmol/L (3.5-5.5); Total Protein, Blood 6.8 g/dL (6.4-8.2)
[2022-08-11 13:31] LABS: BAND PERCENT MAN 11 % (0-8); BASOPHILS PERCENT MAN 0 % (0-2); EOSINOPHILS PERCENT MAN 0 % (0-6); LYMPHOCYTES PERCENT MAN 21 % (21-46); MONOCYTES PERCENT MAN 6 % (4-13); NEUTROPHILS ABSOLUTE MAN 4.87 K/mm3 (1.96-9.15); SEG NEUTROPHILS PERCENT MAN 62 % (41-73); TOTAL CELLS COUNTED 100
== END 2022-08-11 16:50 | disposition home or self-care (01) ==
LOC: ER 12:23
PROVIDERS: Emergency Medicine
DX: K80.50 Calculus of bile duct without cholangitis or cholecystitis without obstruction (principal); E11.9 Type 2 diabetes mellitus without complications; I10 Essential (primary) hypertension; J44.9 Chronic obstructive pulmonary disease, unspecified; Z87.891 Personal history of nicotine dependence; Z79.899 Other long term (current) drug therapy; Z79.82 Long term (current) use of aspirin
CPT/HCPCS: 36415; 80053; 83605; 83690; 85025; 87040; 96365; 99283-25; J2543; J7030

== ENCOUNTER 2022-09-27 11:56 | Emergency (ER) | payer OTHER ==
[~2022-09-27] VITALS: Ht 160 cm; Wt 43.1 kg
== END 2022-09-27 15:37 | disposition home or self-care (01) ==
LOC: ER 11:56
DX: S46.001A Unspecified injury of muscle(s) and tendon(s) of the rotator cuff of right shoulder, initial encounter (principal); M25.511 Pain in right shoulder; E11.9 Type 2 diabetes mellitus without complications; I10 Essential (primary) hypertension; J44.9 Chronic obstructive pulmonary disease, unspecified; X58.XXXA Exposure to other specified factors, initial encounter; Z79.82 Long term (current) use of aspirin; Z79.899 Other long term (current) drug therapy; Z87.891 Personal history of nicotine dependence
CPT/HCPCS: 73060

== ENCOUNTER → 2023-04-10 | Outpatient (CLI) | payer OTHER ==
[2023-04-10 20:41] LABS: Albumin, Blood 3.9 g/dL (3.4-5.0); Albumin/Globulin Ratio 1.5 (0.8-1.8); Bilirubin, Total 0.8 mg/dL (0.1-1.0); Bun/Creatinine Ratio 36.1 (12.0-20.0); Calcium, Blood 9.2 mg/dL (8.5-10.1); Creatinine, Blood 0.61 mg/dL (0.40-1.00); Globulin, Blood 2.6 g/dL (2.2-4.0); Phosphorus, Blood 3.1 mg/dL (2.5-4.9); Potassium, Blood 4.3 mmol/L (3.5-5.5); Total Protein, Blood 6.5 g/dL (6.4-8.2)
== END | disposition home or self-care (01) ==
LOC: LAB 17:16 → LAB SHORT 17:16
PROVIDERS: Internal Medicine Hematology & Oncology
DX: E53.8 Deficiency of other specified B group vitamins (principal); D64.9 Anemia, unspecified
CPT/HCPCS: 80053; 82607; 82746; 84100

== ENCOUNTER 2023-05-06 15:04 | Emergency (ER) | payer OTHER ==
[~2023-05-06] VITALS: Ht 165.1 cm; Wt 59.0 kg
[2023-05-06 15:16] VITALS: BP 121/59
[2023-05-06 15:28] LABS: BASOPHILS ABSOLUTE AUTO 0.03 K/mm3 (0.00-0.23); BASOPHILS PERCENT AUTO 1 % (0-2); EOSINOPHILS ABSOLUTE AUTO 0.09 K/mm3 (0.00-0.68); EOSINOPHILS PERCENT AUTO 2 % (0-6); Hematocrit 33.4 % (33.0-51.0); Hemoglobin 11.2 g/dL (11.5-16.0); IMMATURE GRAN ABSOLUTE AUTO 0.02 K/mm3 (0.00-0.10); IMMATURE GRAN PERCENT AUTO 0 % (0-1); LYMPHOCYTES ABSOLUTE AUTO 1.33 K/mm3 (0.84-5.20); LYMPHOCYTES PERCENT AUTO 27 % (21-46); MONOCYTES ABSOLUTE AUTO 1.27 K/mm3 (0.16-1.47); MONOCYTES PERCENT AUTO 26 % (4-13); Mean Corpuscular HGB 37.5 pg (26.0-34.0); Mean Corpuscular HGB Conc 33.5 g/dL (31.5-36.5); Mean Corpuscular Volume 112 fL (80-100); Mean Platelet Volume 13.5 fL (9.1-12.4); NEUTROPHILS ABSOLUTE AUTO 2.25 K/mm3 (1.96-9.15); NEUTROPHILS PERCENT AUTO 45 % (41-73); Platelet Count 193 K/mm3 (150-400); RDW Coefficient Variation 17.5 % (11.7-14.2); RDW Standard Deviation 71.8 fL (35.1-46.3); Red Blood Cell Count 2.99 M/mm3 (3.80-5.20); White Blood Cell Count 4.99 K/mm3 (4.00-11.30)
[2023-05-06 15:44] LABS: Albumin, Blood 3.6 g/dL (3.4-5.0); Albumin/Globulin Ratio 1.2 (0.8-1.8); Bilirubin, Total 0.6 mg/dL (0.1-1.0); Bun/Creatinine Ratio 33.8 (12.0-20.0); Calcium, Blood 9.1 mg/dL (8.5-10.1); Creatinine, Blood 0.62 mg/dL (0.40-1.00); Globulin, Blood 2.9 g/dL (2.2-4.0); Potassium, Blood 4.3 mmol/L (3.5-5.5); Total Protein, Blood 6.5 g/dL (6.4-8.2)
== END 2023-05-06 17:00 | disposition home or self-care (01) ==
LOC: ER 15:04
PROVIDERS: Physician Assistant
DX: R07.9 Chest pain, unspecified (principal); Z79.82 Long term (current) use of aspirin; Z79.1 Long term (current) use of non-steroidal anti-inflammatories (NSAID); Z79.899 Other long term (current) drug therapy; E11.9 Type 2 diabetes mellitus without complications; I10 Essential (primary) hypertension; J44.9 Chronic obstructive pulmonary disease, unspecified; Z87.440 Personal history of urinary (tract) infections; Z87.442 Personal history of urinary calculi; Z87.891 Personal history of nicotine dependence
CPT/HCPCS: 36415; 71045; 80053; 83690; 84484; 85025; 93005; 93010; 99285-25

== ENCOUNTER 2023-05-25 11:15 | Emergency (ER) | payer OTHER ==
[~2023-05-25] VITALS: Ht 160 cm; Wt 54.4 kg
[~2023-05-25 11:15] MED LIST changes: +ALBU90OI INH; +PRED20 PO
[2023-05-25 11:20] VITALS: BP 160/92
[2023-05-25] MEDS ORDERED: HYDR1TAB94 PO (12:42)
== END 2023-05-25 12:50 | disposition home or self-care (01) ==
LOC: ER 11:15
DX: M47.9 Spondylosis, unspecified (principal); M54.6 Pain in thoracic spine; E11.9 Type 2 diabetes mellitus without complications; I10 Essential (primary) hypertension; J44.9 Chronic obstructive pulmonary disease, unspecified; Z79.82 Long term (current) use of aspirin; Z79.52 Long term (current) use of systemic steroids; Z79.899 Other long term (current) drug therapy; Z87.891 Personal history of nicotine dependence; W19.XXXA Unspecified fall, initial encounter
CPT/HCPCS: 72070; 99283-25; A9270

== ENCOUNTER 2023-06-22 03:23 | Emergency (ER) | payer OTHER ==
[~2023-06-22] VITALS: Ht 157.5 cm; Wt 63.5 kg
[2023-06-22 04:10] LABS: Source, Urine Straight Cath
[2023-06-22 04:19] LABS: Bilirubin, Urine Neg (Neg); Blood, Urine Neg (Neg); Glucose Qualitative, Urine Neg (Neg); Ketones, Urine Neg (Neg); Leukocyte Esterase, Urine Neg (Neg); Nitrite, Urine Neg (Neg); Protein, Urine Neg (Neg); Specific Gravity, Urine 1.015 (1.003-1.022); Urobilinogen, Urine NORM (Normal)
[2023-06-22 05:02] LABS: Appearance, Urine Hazy (Clear); Color, Urine Yellow (P-Yellow)
[2023-06-22 05:05] LABS: Bacteria Rare /hpf; Red Blood Cells, Urine 0-2 /hpf (0-2); Squamous Epithelial Cells Rare /hpf (Few); White Blood Cells, Urine 0-2 /hpf (0-5)
[2023-06-22 11:57] VITALS: BP 123/42
== END 2023-06-22 13:40 | disposition home or self-care (01) ==
LOC: ER 03:23
PROVIDERS: Student in an Organized Health Care Education/Training Program
DX: S00.83XA Contusion of other part of head, initial encounter (principal); R29.6 Repeated falls; W18.30XA Fall on same level, unspecified, initial encounter; Z79.899 Other long term (current) drug therapy; Z79.82 Long term (current) use of aspirin; Z79.52 Long term (current) use of systemic steroids; E11.9 Type 2 diabetes mellitus without complications; I10 Essential (primary) hypertension; J44.9 Chronic obstructive pulmonary disease, unspecified; M19.90 Unspecified osteoarthritis, unspecified site; Z87.891 Personal history of nicotine dependence
CPT/HCPCS: 73030; 81001; 99285-25

== ENCOUNTER → 2023-08-02 | Outpatient (CLI) | payer OTHER ==
[2023-08-02 17:18] LABS: Source, Urine Clean Catch
[2023-08-02 18:12] LABS: Appearance, Urine Hazy (Clear); Bilirubin, Urine Neg (Neg); Blood, Urine Neg (Neg); Color, Urine Yellow (P-Yellow); Glucose Qualitative, Urine Neg (Neg); Ketones, Urine Neg (Neg); Leukocyte Esterase, Urine Neg (Neg); Nitrite, Urine Neg (Neg); Protein, Urine Neg (Neg); Specific Gravity, Urine 1.015 (1.003-1.022); Urobilinogen, Urine NORM (Normal)
[2023-08-02 19:07] LABS: Amorphous Mod (0-Heavy); Bacteria Many /hpf; Mucus Light (0-Heavy); Red Blood Cells, Urine 0-2 /hpf (0-2); Squamous Epithelial Cells Rare /hpf (Few); White Blood Cells, Urine 0-2 /hpf (0-5)
== END | disposition home or self-care (01) ==
LOC: LAB 17:15 → LAB SHORT 17:15
PROVIDERS: Internal Medicine Hematology & Oncology
DX: R30.0 Dysuria (principal)
CPT/HCPCS: 81001; 87086

== ENCOUNTER → 2023-10-11 | Outpatient (CLI) | payer OTHER ==
[2023-10-11 19:12] LABS: BASOPHILS ABSOLUTE AUTO 0.03 K/mm3 (0.00-0.23); BASOPHILS PERCENT AUTO 1 % (0-2); EOSINOPHILS ABSOLUTE AUTO 0.08 K/mm3 (0.00-0.68); EOSINOPHILS PERCENT AUTO 2 % (0-6); Hematocrit 26.3 % (33.0-51.0); Hemoglobin 8.7 g/dL (11.5-16.0); IMMATURE GRAN ABSOLUTE AUTO 0.03 K/mm3 (0.00-0.10); IMMATURE GRAN PERCENT AUTO 1 % (0-1); LYMPHOCYTES ABSOLUTE AUTO 1.23 K/mm3 (0.84-5.20); LYMPHOCYTES PERCENT AUTO 29 % (21-46); MONOCYTES ABSOLUTE AUTO 0.89 K/mm3 (0.16-1.47); MONOCYTES PERCENT AUTO 21 % (4-13); Mean Corpuscular HGB 38.2 pg (26.0-34.0); Mean Corpuscular HGB Conc 33.1 g/dL (31.5-36.5); Mean Corpuscular Volume 115 fL (80-100); NEUTROPHILS PERCENT AUTO 47 % (41-73); Platelet Count 250 K/mm3 (150-400); RDW Coefficient Variation 17.7 % (11.7-14.2); RDW Standard Deviation 72.4 fL (35.1-46.3); Red Blood Cell Count 2.28 M/mm3 (3.80-5.20); White Blood Cell Count 4.26 K/mm3 (4.00-11.30)
[2023-10-11 19:17] LABS: Albumin, Blood 3.9 g/dL (3.4-5.0); Albumin/Globulin Ratio 1.4 (0.8-1.8); Bilirubin, Total 0.6 mg/dL (0.1-1.0); Bun/Creatinine Ratio 36.7 (12.0-20.0); Calcium, Blood 8.9 mg/dL (8.5-10.1); Creatinine, Blood 0.57 mg/dL (0.40-1.00); Globulin, Blood 2.7 g/dL (2.2-4.0); Phosphorus, Blood 2.8 mg/dL (2.5-4.9); Potassium, Blood 4.9 mmol/L (3.5-5.5); Total Protein, Blood 6.6 g/dL (6.4-8.2)
== END ==
LOC: LAB SHORT 17:27 → LAB 17:27
PROVIDERS: Internal Medicine Hematology & Oncology
DX: D46.9 Myelodysplastic syndrome, unspecified (principal)
CPT/HCPCS: 80053; 84100; 85025

== ENCOUNTER 2023-11-21 10:02 | Emergency (ER) | payer OTHER ==
[~2023-11-21] VITALS: Ht 152.4 cm; Wt 72.6 kg
[2023-11-21 12:00] VITALS: BP 120/50
== END 2023-11-21 12:39 | disposition home or self-care (01) ==
LOC: ER 10:02
DX: R04.0 Epistaxis (principal); E11.9 Type 2 diabetes mellitus without complications; I10 Essential (primary) hypertension; Z87.891 Personal history of nicotine dependence
CPT/HCPCS: 99283

== ENCOUNTER 2023-12-07 00:29 | Day surgery (SDC) | payer MEDICARE, OTHER ==
[2023-12-07] VITALS (7 sets, daily range): BP systolic 96–119; BP diastolic 30–75
[2023-12-07] MEDS ORDERED: NS 250 ML IV SCH (06:40)
--- NOTE | 2023-12-07 08:29 | NUR ---
PT REPORTS SHE DOES NOT TAKE ANY OF THE MEDICATIONS THAT THE MD HAS PRESCRIBED FOR HER AT HOME. ANXIOUS AOUT THE BLOOD TRANSFUSION TODAY AND UPSET THAT HER DOG IS NOT WITH HER THIS MORNING. CAREGIVER IN ROOM WITH PT ASSISTING WITH EMOTIONAL SUPPORT.
== END 2023-12-07 12:05 | disposition home or self-care (01) ==
LOC: ATC 00:29
DX: D46.9 Myelodysplastic syndrome, unspecified (principal); E11.9 Type 2 diabetes mellitus without complications
CPT/HCPCS: 36430; 86850; 86900; 86901; 86923; J7050; P9016

== ENCOUNTER → 2023-12-13 | Outpatient (CLI) | payer MEDICARE, OTHER | END | disposition home or self-care (01) | LOC: LAB SHORT 14:34 → LAB 14:34 | DX: R30.0 Dysuria (principal) | CPT/HCPCS: 87086 ==

== ENCOUNTER → 2024-02-07 | Outpatient (CLI) | payer MEDICARE, OTHER ==
[~2024-02-07] MED LIST changes: +Ventolin/Prove6.7 GM INH
[2024-02-08 07:21] LABS: Albumin, Blood 3.8 g/dL (3.4-5.0); Albumin/Globulin Ratio 1.6 (0.8-1.8); Bilirubin, Total 0.5 mg/dL (0.1-1.0); Bun/Creatinine Ratio 43.1 (12.0-20.0); Calcium, Blood 8.7 mg/dL (8.5-10.1); Creatinine, Blood 0.49 mg/dL (0.40-1.00); Globulin, Blood 2.4 g/dL (2.2-4.0); Phosphorus, Blood 2.5 mg/dL (2.5-4.9); Potassium, Blood 4.7 mmol/L (3.5-5.5); Total Protein, Blood 6.2 g/dL (6.4-8.2)
== END | disposition home or self-care (01) ==
LOC: LAB SHORT 17:51 → LAB 17:51
PROVIDERS: Internal Medicine Hematology & Oncology
DX: D46.9 Myelodysplastic syndrome, unspecified (principal); R60.9 Edema, unspecified
CPT/HCPCS: 80053; 84100

== ENCOUNTER 2024-02-26 08:56 | Day surgery (SDC) | payer MEDICARE, OTHER ==
[~2024-02-26 08:56] MED LIST changes: +NS 250 ML IV SCH
[2024-02-26 09:20] VITALS: BP 111/62
[2024-02-26 09:39] VITALS: BP 92/65
[2024-02-26 11:05] VITALS: BP 109/98
== END 2024-02-26 11:18 | disposition home or self-care (01) ==
LOC: ATC 08:56
DX: D46.9 Myelodysplastic syndrome, unspecified (principal)
CPT/HCPCS: 36415; 36430; 86850; 86900; 86901; 86923; J7050; P9016

== ENCOUNTER 2024-04-10 13:50 | Emergency (ER) | payer MEDICARE, OTHER ==
[~2024-04-10] VITALS: Ht 157.5 cm; Wt 63.5 kg
[~2024-04-10 13:50] MED LIST changes: -NS 250 ML IV SCH
[2024-04-10] MEDS ORDERED: NS 1,000 ML IV SCH (14:25)
[2024-04-10 14:47] LABS: Hematocrit 19.7 % (33.0-51.0); Hemoglobin 6.4 g/dL (11.5-16.0); Mean Corpuscular HGB Conc 32.5 g/dL (31.5-36.5); Mean Corpuscular Volume 102 fL (80-100); Platelet Count 203 K/mm3 (150-400); RDW Standard Deviation 82.1 fL (35.1-46.3); Red Blood Cell Count 1.94 M/mm3 (3.80-5.20); White Blood Cell Count 3.78 K/mm3 (4.00-11.30)
[2024-04-10 14:48] LABS: Albumin, Blood 3.4 g/dL (3.4-5.0); Albumin/Globulin Ratio 1.3 (0.8-1.8); Bilirubin, Total 0.6 mg/dL (0.1-1.0); Bun/Creatinine Ratio 38.8 (12.0-20.0); Calcium, Blood 8.6 mg/dL (8.5-10.1); Creatinine, Blood 0.52 mg/dL (0.40-1.00); Globulin, Blood 2.6 g/dL (2.2-4.0); Potassium, Blood 4.4 mmol/L (3.5-5.5)
[2024-04-10 15:05] LABS: Source, Urine Clean Catch
[2024-04-10 15:21] LABS: BAND PERCENT MAN 5 % (0-8); BASOPHILS PERCENT MAN 0 % (0-2); EOSINOPHILS PERCENT MAN 2 % (0-6); LYMPHOCYTES PERCENT MAN 36 % (21-46); MONOCYTES PERCENT MAN 13 % (4-13); SEG NEUTROPHILS PERCENT MAN 44 % (41-73); TOTAL CELLS COUNTED 100
[2024-04-10 15:24] LABS: Appearance, Urine Hazy (Clear); Bilirubin, Urine Neg (Neg); Blood, Urine Neg (Neg); Color, Urine Yellow (P-Yellow); Glucose Qualitative, Urine Neg (Neg); Ketones, Urine Neg (Neg); Leukocyte Esterase, Urine Neg (Neg); Nitrite, Urine Neg (Neg); Protein, Urine Neg (Neg); Urobilinogen, Urine NORM (Normal)
[2024-04-10 15:51] LABS: IMMATURE GRAN ABSOLUTE AUTO 0.01 K/mm3 (0.00-0.10); IMMATURE GRAN PERCENT AUTO 0 % (0-1); LYMPHOCYTES ABSOLUTE AUTO 1.32 K/mm3 (0.84-5.20); LYMPHOCYTES PERCENT AUTO 35 % (21-46); MONOCYTES PERCENT AUTO 27 % (4-13); Mean Platelet Volume 13.4 fL (9.1-12.4); NEUTROPHILS ABSOLUTE AUTO 1.35 K/mm3 (1.96-9.15); NEUTROPHILS PERCENT AUTO 36 % (41-73)
[2024-04-10 16:13] LABS: Bacteria Many /hpf; Red Blood Cells, Urine 0-2 /hpf (0-2); Squamous Epithelial Cells Rare /hpf (Few); White Blood Cells, Urine 0-2 /hpf (0-5)
[2024-04-10 16:14] LABS: Amorphous Heavy (0-Heavy); Mucus Light (0-Heavy); Transitional Epithelial Cells Rare /hpf (0-Rare)
[2024-04-10 21:15] VITALS: BP 116/43
== END 2024-04-10 21:40 | disposition home or self-care (01) ==
LOC: ER 13:50
PROVIDERS: Emergency Medicine
DX: D64.9 Anemia, unspecified (principal); E11.9 Type 2 diabetes mellitus without complications; I10 Essential (primary) hypertension; J44.9 Chronic obstructive pulmonary disease, unspecified; Z87.891 Personal history of nicotine dependence
CPT/HCPCS: 36430; 80053; 81001; 83605; 85025; 86850; 86900; 86901; 86923; 87086; 93005; 93010; 96360; 99285-25; J7030; P9016

== ENCOUNTER 2024-05-01 02:19 | Day surgery (SDC) | payer MEDICARE, OTHER ==
[2024-05-01] MEDS ORDERED: NS 250 ML IV SCH (06:55)
[2024-05-01 12:33] VITALS: BP 107/45
--- NOTE | 2024-05-01 14:09 | NUR ---
PATIENT ARRIVED TODAY FOR 2 UNIT PRBC TRANSFUSION. SPECIMEN OBTAINED FOR TYPE AND SCREEN AND TAKEN TO BLOOD BANK. LEI FROM CALLED AROUND 1245 AND SAID THAT [employer] LOCKED HER ACCOUNT AND WILL NOT ALLOW FOR THE TYPE AND SCREEN TO BE RAN UNDER THIS ACCOUNT. HE SAID THAT SHE NEEDED A NEW ACCOUNT TO BE MADE AND THEN A NEW SPECIMEN DRAWN UNDER THAT NEW ACCOUNT BEFORE WE COULD PRCEED WITH HER TRANSFUSION TODAY. I CALLED ADMITTING TO MAKE ANOTHER ACCOUNT AND THEY ALL SAID THAT THEY DO NOT KNOW HOW TO MAKE A NEW ATC ACCOUNT AND THAT OUR LEAD PHARMACY TECHNICIAN GAMAL WOULD HAVE TO DO THAT TOMORROW WHEN HE IS BACK. PATIENT AND CAREGIVER PLAN TO RETURN TOMORROW AT 1300 FOR HER NEW TYPE AND SCREEN TO BE DRAWN AND BLOOD TRANFUSION TO [facility].
== END 2024-05-01 13:35 | disposition home or self-care (01) ==
LOC: ATC 02:19
DX: D46.9 Myelodysplastic syndrome, unspecified (principal); Z79.899 Other long term (current) drug therapy; Z87.891 Personal history of nicotine dependence
CPT/HCPCS: 36415; J7050

== ENCOUNTER 2024-05-02 07:10 | Day surgery (SDC) | payer MEDICARE, OTHER ==
[2024-05-02] MEDS ORDERED: NS 250 ML IV SCH (10:15)
[2024-05-02 14:35] VITALS: BP 127/55
[2024-05-02 14:57] VITALS: BP 88/69
[2024-05-02 15:57] VITALS: BP 108/48
[2024-05-02 16:25] VITALS: BP 116/38
[2024-05-02 16:47] VITALS: BP 112/50
[2024-05-02 18:05] VITALS: BP 132/54
== END 2024-05-02 18:15 | disposition home or self-care (01) ==
LOC: ATC 07:10
DX: D46.9 Myelodysplastic syndrome, unspecified (principal); Z79.899 Other long term (current) drug therapy
CPT/HCPCS: 36430; 86850; 86900; 86901; 86923; J7050; P9016

== ENCOUNTER 2024-06-15 13:18 | Observation (INO) | payer MEDICARE, OTHER ==
[~2024-06-15] VITALS: Ht 152.4 cm; Wt 64.4 kg
[2024-06-15 14:35] LABS: BASOPHILS ABSOLUTE AUTO 0.01 K/mm3 (0.00-0.23); BASOPHILS PERCENT AUTO 0 % (0-2); EOSINOPHILS ABSOLUTE AUTO 0.06 K/mm3 (0.00-0.68); EOSINOPHILS PERCENT AUTO 1 % (0-6); Hematocrit 22.4 % (33.0-51.0); Hemoglobin 7.1 g/dL (11.5-16.0); IMMATURE GRAN ABSOLUTE AUTO 0.02 K/mm3 (0.00-0.10); IMMATURE GRAN PERCENT AUTO 0 % (0-1); LYMPHOCYTES ABSOLUTE AUTO 1.28 K/mm3 (0.84-5.20); LYMPHOCYTES PERCENT AUTO 28 % (21-46); MONOCYTES ABSOLUTE AUTO 1.26 K/mm3 (0.16-1.47); MONOCYTES PERCENT AUTO 27 % (4-13); Mean Corpuscular HGB 32.6 pg (26.0-34.0); Mean Corpuscular HGB Conc 31.7 g/dL (31.5-36.5); Mean Corpuscular Volume 103 fL (80-100); NEUTROPHILS ABSOLUTE AUTO 1.97 K/mm3 (1.96-9.15); NEUTROPHILS PERCENT AUTO 43 % (41-73); Platelet Count 234 K/mm3 (150-400); RDW Coefficient Variation 23.1 % (11.7-14.2); RDW Standard Deviation 81.8 fL (35.1-46.3); Red Blood Cell Count 2.18 M/mm3 (3.80-5.20)
[2024-06-15 14:36] LABS: Mean Platelet Volume 13.5 fL (9.1-12.4)
[2024-06-15 14:46] LABS: Albumin, Blood 3.8 g/dL (3.4-5.0); Albumin/Globulin Ratio 1.3 (0.8-1.8); Bilirubin, Total 0.7 mg/dL (0.1-1.0); Bun/Creatinine Ratio 33.7 (12.0-20.0); Calcium, Blood 8.7 mg/dL (8.5-10.1); Creatinine, Blood 0.59 mg/dL (0.40-1.00); Magnesium, Blood 2.3 mg/dL (1.6-2.4); Potassium, Blood 4.7 mmol/L (3.5-5.5); Total Protein, Blood 6.8 g/dL (6.4-8.2)
[2024-06-15] MEDS ORDERED: NS 1,000 ML IV SCH ×2 (18:40→22:15)
[2024-06-15 20:07] LABS: Influenza A, PCR NEGATIVE (NEGATIVE); Influenza B, PCR NEGATIVE (NEGATIVE); Resp Syncytial Virus, PCR NEGATIVE (NEGATIVE); SARS-Cov-2 (COVID-19) PCR, MMC NEGATIVE (NEGATIVE)
[2024-06-15 20:21] LABS: Source, Urine Clean Catch
[2024-06-15 20:26] LABS: Bilirubin, Urine Neg (Neg); Blood, Urine Neg (Neg); Glucose Qualitative, Urine Neg (Neg); Ketones, Urine Neg (Neg); Leukocyte Esterase, Urine Neg (Neg); Nitrite, Urine Neg (Neg); Protein, Urine Neg (Neg); Urobilinogen, Urine NORM (Normal)
[2024-06-15 20:31] LABS: Color, Urine Yellow (P-Yellow)
[2024-06-15 20:32] LABS: Amorphous Heavy (0-Heavy); Appearance, Urine Hazy (Clear); Bacteria Rare /hpf; Red Blood Cells, Urine Not Seen /hpf (0-2); Squamous Epithelial Cells Not Seen /hpf (Few); White Blood Cells, Urine 0-2 /hpf (0-5)
[2024-06-15 20:44] LABS: U Amphetamine Screen Not Detected; U Barbituate Screen Not Detected; U Benzodiazapine Screen Not Detected; U Buprenorphine Screen Not Detected; U Cannabinoids Screen Not Detected; U Cocaine Screen Not Detected; U Methadone Screen Not Detected; U Methamphetamine Screen Not Detected; U Opiates Screen Not Detected; U Oxycodone Screen Not Detected; U Phencyclidine Screen Not Detected
[2024-06-16 03:05] VITALS: BP 145/65
[2024-06-16 06:39] LABS: BASOPHILS ABSOLUTE AUTO 0.02 K/mm3 (0.00-0.23); BASOPHILS PERCENT AUTO 1 % (0-2); EOSINOPHILS ABSOLUTE AUTO 0.11 K/mm3 (0.00-0.68); EOSINOPHILS PERCENT AUTO 3 % (0-6); Hematocrit 23.6 % (33.0-51.0); Hemoglobin 7.9 g/dL (11.5-16.0); IMMATURE GRAN ABSOLUTE AUTO 0.01 K/mm3 (0.00-0.10); IMMATURE GRAN PERCENT AUTO 0 % (0-1); LYMPHOCYTES ABSOLUTE AUTO 1.29 K/mm3 (0.84-5.20); LYMPHOCYTES PERCENT AUTO 32 % (21-46); MONOCYTES ABSOLUTE AUTO 1.08 K/mm3 (0.16-1.47); MONOCYTES PERCENT AUTO 27 % (4-13); Mean Corpuscular HGB 33.3 pg (26.0-34.0); Mean Corpuscular HGB Conc 33.5 g/dL (31.5-36.5); Mean Corpuscular Volume 100 fL (80-100); NEUTROPHILS ABSOLUTE AUTO 1.49 K/mm3 (1.96-9.15); NEUTROPHILS PERCENT AUTO 37 % (41-73); Platelet Count 207 K/mm3 (150-400); RDW Coefficient Variation 21.1 % (11.7-14.2); RDW Standard Deviation 71.5 fL (35.1-46.3); Red Blood Cell Count 2.37 M/mm3 (3.80-5.20)
--- NOTE | 2024-06-16 06:47 | NUR ---
SHIFT SUMMARY: Pt is admitted for acute on chronic anemia and is a full code. Is alert and able to make needs known. But is noted to have confusion. ADLs have been 1p during shift. Denies pain or discomfort when asked.
[2024-06-16 06:54] LABS: Bun/Creatinine Ratio 26.6 (12.0-20.0); Creatinine, Blood 0.6 mg/dL (0.40-1.00); Potassium, Blood 4.3 mmol/L (3.5-5.5)
[2024-06-16] MEDS ORDERED: Albuterol HFA200 ACT/6.7 GM INH INH PRN (08:00)
[2024-06-16 08:01] VITALS: BP 115/47
[2024-06-16] MEDS ORDERED: Acetaminophen 325 MG TABLET PO PRN (10:50)
[2024-06-16] MEDS ORDERED: Sertraline HCl 50 MG Tab PO SCH (11:00)
[2024-06-16] MEDS ORDERED: Aspirin 81 MG Chew PO SCH (11:00)
[2024-06-16] MEDS ORDERED: ASPI81CH PO ×2 (11:15)
[2024-06-16] MEDS ORDERED: SERT25 PO ×2 (11:16)
[2024-06-16] MEDS ORDERED: ALBU90OI INH ×2 (11:16)
--- NOTE | 2024-06-16 12:07 | NUR ---
DISCHARGE NOTE PT DISCHARGED TO HOME, PICKED UP BY HER CAREGIVER. IV REMOVED. PERSONAL BELONGINGS RETURNED. DISCHARGE EDUCATION AND INFORMATION PROVIDED. THIS NURSE TOOK HER DOWN TO HER CAREGIVERS PERSONAL VEHICLE.
== END 2024-06-16 11:54 | disposition home or self-care (01) ==
LOC: ER 13:18 → ERHOLD 13:19 → MEDS 13:19
PROVIDERS: Physician Assistant; Student in an Organized Health Care Education/Training Program; ADMIT Family Medicine
DX: D46.9 Myelodysplastic syndrome, unspecified (principal); F41.9 Anxiety disorder, unspecified; E11.9 Type 2 diabetes mellitus without complications; I10 Essential (primary) hypertension; J44.9 Chronic obstructive pulmonary disease, unspecified; M81.0 Age-related osteoporosis without current pathological fracture; M19.90 Unspecified osteoarthritis, unspecified site; Z87.891 Personal history of nicotine dependence
CPT/HCPCS: 0241U; 36415; 36430; 70450; 71045; 80048; 80053; 80320; 81001; 81003; 83735; 85025; 86850; 86900; 86901; 86923; 93005; 93010; 94640; 94664; 94760; 96360; 99285-25; A9270; G0378; J7030; P9016

== ENCOUNTER → 2024-06-19 | Outpatient (CLI) | payer MEDICARE, OTHER ==
[~2024-06-19] MED LIST changes: +ASPI81CH PO; +SERT25 PO
== END | disposition home or self-care (01) ==
LOC: LAB 15:50 → LAB SHORT 15:50
DX: D46.9 Myelodysplastic syndrome, unspecified (principal); E53.8 Deficiency of other specified B group vitamins
CPT/HCPCS: 82607

== ENCOUNTER 2024-06-27 01:05 | Day surgery (SDC) | payer MEDICARE, OTHER ==
[2024-06-27] MEDS ORDERED: NS 250 ML IV SCH (07:25)
[2024-06-27 13:44] VITALS: BP 75/44
[2024-06-27 14:04] VITALS: BP 100/48
[2024-06-27 15:11] VITALS: BP 102/67
[2024-06-27 16:00] VITALS: BP 119/55
== END 2024-06-27 16:12 | disposition home or self-care (01) ==
LOC: ATC 01:05
DX: D46.9 Myelodysplastic syndrome, unspecified (principal); E53.8 Deficiency of other specified B group vitamins; E11.9 Type 2 diabetes mellitus without complications; Z86.16 Personal history of COVID-19; Z87.891 Personal history of nicotine dependence; Z79.82 Long term (current) use of aspirin; Z79.899 Other long term (current) drug therapy
CPT/HCPCS: 36415; 36430; 82607; 86850; 86900; 86901; 86923; J7050; P9016

== ENCOUNTER → 2024-07-23 | Outpatient (CLI) | payer MEDICARE, OTHER ==
[~2024-07-23] MED LIST changes: +ACET500 PO
[2024-07-23 16:39] LABS: BASOPHILS ABSOLUTE AUTO 0.02 K/mm3 (0.00-0.23); BASOPHILS PERCENT AUTO 1 % (0-2); EOSINOPHILS ABSOLUTE AUTO 0.06 K/mm3 (0.00-0.68); EOSINOPHILS PERCENT AUTO 2 % (0-6); Hematocrit 27.4 % (33.0-51.0); Hemoglobin 8.8 g/dL (11.5-16.0); IMMATURE GRAN ABSOLUTE AUTO 0.02 K/mm3 (0.00-0.10); IMMATURE GRAN PERCENT AUTO 1 % (0-1); LYMPHOCYTES ABSOLUTE AUTO 1.04 K/mm3 (0.84-5.20); LYMPHOCYTES PERCENT AUTO 27 % (21-46); MONOCYTES ABSOLUTE AUTO 0.98 K/mm3 (0.16-1.47); MONOCYTES PERCENT AUTO 25 % (4-13); Mean Corpuscular HGB 32.6 pg (26.0-34.0); Mean Corpuscular HGB Conc 32.1 g/dL (31.5-36.5); Mean Corpuscular Volume 102 fL (80-100); NEUTROPHILS ABSOLUTE AUTO 1.81 K/mm3 (1.96-9.15); NEUTROPHILS PERCENT AUTO 46 % (41-73); RDW Coefficient Variation 18.1 % (11.7-14.2); RDW Standard Deviation 66.5 fL (35.1-46.3); White Blood Cell Count 3.93 K/mm3 (4.00-11.30)
[2024-07-23 17:04] LABS: Platelet Count 187 K/mm3 (150-400)
== END ==
LOC: LAB 15:30 → LAB SHORT 15:30
PROVIDERS: Internal Medicine Hematology & Oncology
DX: D46.9 Myelodysplastic syndrome, unspecified (principal)
CPT/HCPCS: 85025

== ENCOUNTER 2024-08-08 02:59 | Day surgery (SDC) | payer MEDICARE, OTHER ==
[2024-08-07 13:24] LABS: BASOPHILS ABSOLUTE AUTO 0.01 K/mm3 (0.00-0.23); BASOPHILS PERCENT AUTO 0 % (0-2); EOSINOPHILS ABSOLUTE AUTO 0.08 K/mm3 (0.00-0.68); EOSINOPHILS PERCENT AUTO 2 % (0-6); Hematocrit 22.6 % (33.0-51.0); Hemoglobin 7.3 g/dL (11.5-16.0); IMMATURE GRAN ABSOLUTE AUTO 0.01 K/mm3 (0.00-0.10); IMMATURE GRAN PERCENT AUTO 0 % (0-1); LYMPHOCYTES ABSOLUTE AUTO 0.87 K/mm3 (0.84-5.20); LYMPHOCYTES PERCENT AUTO 22 % (21-46); MONOCYTES ABSOLUTE AUTO 1.07 K/mm3 (0.16-1.47); MONOCYTES PERCENT AUTO 27 % (4-13); Mean Corpuscular HGB 33.5 pg (26.0-34.0); Mean Corpuscular HGB Conc 32.3 g/dL (31.5-36.5); Mean Corpuscular Volume 104 fL (80-100); NEUTROPHILS ABSOLUTE AUTO 1.91 K/mm3 (1.96-9.15); NEUTROPHILS PERCENT AUTO 48 % (41-73); Platelet Count 204 K/mm3 (150-400); RDW Coefficient Variation 19.4 % (11.7-14.2); RDW Standard Deviation 70.8 fL (35.1-46.3); Red Blood Cell Count 2.18 M/mm3 (3.80-5.20); White Blood Cell Count 3.95 K/mm3 (4.00-11.30)
[2024-08-07 13:40] LABS: Mean Platelet Volume 13.8 fL (9.1-12.4)
[2024-08-08] VITALS (7 sets, daily range): BP systolic 101–120; BP diastolic 47–78
[2024-08-08] MEDS ORDERED: NS 250 ML IV SCH (06:50)
== END 2024-08-08 13:32 | disposition home or self-care (01) ==
LOC: ATC 02:59
PROVIDERS: Internal Medicine Hematology & Oncology
DX: D46.9 Myelodysplastic syndrome, unspecified (principal)
CPT/HCPCS: 36415; 36430; 85025; 86850; 86900; 86901; 86923; J7050; P9016

== ENCOUNTER → 2024-08-21 | Outpatient (CLI) | payer MEDICARE, OTHER ==
[2024-08-21 14:29] LABS: Hematocrit 30.6 % (33.0-51.0); Hemoglobin 10.2 g/dL (11.5-16.0); Mean Corpuscular HGB 32.3 pg (26.0-34.0); Mean Corpuscular HGB Conc 33.3 g/dL (31.5-36.5); Mean Corpuscular Volume 97 fL (80-100); Platelet Count 201 K/mm3 (150-400); RDW Coefficient Variation 17.3 % (11.7-14.2); Red Blood Cell Count 3.16 M/mm3 (3.80-5.20)
[2024-08-21 14:31] LABS: White Blood Cell Count 4.98 K/mm3 (4.00-11.30)
[2024-08-21 14:48] LABS: BASOPHILS ABSOLUTE MAN 0.04 K/mm3 (0.00-0.23); BASOPHILS PERCENT MAN 1 % (0-2); EOSINOPHILS ABSOLUTE MAN 0.09 K/mm3 (0.00-0.68); EOSINOPHILS PERCENT MAN 2 % (0-6); LYMPHOCYTES ABSOLUTE MAN 1.24 K/mm3 (0.84-5.20); LYMPHOCYTES PERCENT MAN 25 % (21-46); MONOCYTES ABSOLUTE MAN 0.94 K/mm3 (0.16-1.47); MONOCYTES PERCENT MAN 19 % (4-13); NEUTROPHILS ABSOLUTE MAN 2.63 K/mm3 (1.96-9.15); SEG NEUTROPHILS PERCENT MAN 53 % (41-73); TOTAL CELLS COUNTED 100
== END ==
LOC: LAB SHORT 12:58 → LAB 12:58
PROVIDERS: Internal Medicine Hematology & Oncology
DX: D46.9 Myelodysplastic syndrome, unspecified (principal)
CPT/HCPCS: 85025

== ENCOUNTER → 2024-09-03 | Outpatient (CLI) | payer MEDICARE, OTHER ==
[2024-09-03 17:34] LABS: BASOPHILS ABSOLUTE AUTO 0.02 K/mm3 (0.00-0.23); BASOPHILS PERCENT AUTO 1 % (0-2); EOSINOPHILS ABSOLUTE AUTO 0.07 K/mm3 (0.00-0.68); EOSINOPHILS PERCENT AUTO 2 % (0-6); Hematocrit 26.1 % (33.0-51.0); Hemoglobin 8.5 g/dL (11.5-16.0); IMMATURE GRAN ABSOLUTE AUTO 0.03 K/mm3 (0.00-0.10); IMMATURE GRAN PERCENT AUTO 1 % (0-1); LYMPHOCYTES ABSOLUTE AUTO 0.98 K/mm3 (0.84-5.20); LYMPHOCYTES PERCENT AUTO 23 % (21-46); MONOCYTES ABSOLUTE AUTO 1.01 K/mm3 (0.16-1.47); MONOCYTES PERCENT AUTO 24 % (4-13); Mean Corpuscular HGB 32.9 pg (26.0-34.0); Mean Corpuscular HGB Conc 32.6 g/dL (31.5-36.5); Mean Corpuscular Volume 101 fL (80-100); NEUTROPHILS ABSOLUTE AUTO 2.19 K/mm3 (1.96-9.15); NEUTROPHILS PERCENT AUTO 51 % (41-73); Platelet Count 210 K/mm3 (150-400); RDW Coefficient Variation 18.3 % (11.7-14.2); RDW Standard Deviation 65.5 fL (35.1-46.3); Red Blood Cell Count 2.58 M/mm3 (3.80-5.20)
[2024-09-03 17:39] LABS: Mean Platelet Volume 13.8 fL (9.1-12.4)
== END ==
LOC: LAB 15:36 → LAB SHORT 15:36
PROVIDERS: Internal Medicine Hematology & Oncology
DX: D46.9 Myelodysplastic syndrome, unspecified (principal)
CPT/HCPCS: 85025

== ENCOUNTER 2024-10-03 08:52 | Day surgery (SDC) | payer MEDICARE, OTHER ==
[2024-10-02 17:17] LABS: BASOPHILS ABSOLUTE AUTO 0.02 K/mm3 (0.00-0.23); BASOPHILS PERCENT AUTO 1 % (0-2); EOSINOPHILS ABSOLUTE AUTO 0.08 K/mm3 (0.00-0.68); EOSINOPHILS PERCENT AUTO 2 % (0-6); Hematocrit 24.4 % (33.0-51.0); Hemoglobin 7.8 g/dL (11.5-16.0); IMMATURE GRAN ABSOLUTE AUTO 0.02 K/mm3 (0.00-0.10); IMMATURE GRAN PERCENT AUTO 1 % (0-1); LYMPHOCYTES PERCENT AUTO 27 % (21-46); MONOCYTES ABSOLUTE AUTO 1.11 K/mm3 (0.16-1.47); MONOCYTES PERCENT AUTO 27 % (4-13); Mean Corpuscular HGB 33.1 pg (26.0-34.0); Mean Corpuscular Volume 103 fL (80-100); NEUTROPHILS ABSOLUTE AUTO 1.82 K/mm3 (1.96-9.15); NEUTROPHILS PERCENT AUTO 44 % (41-73); Platelet Count 189 K/mm3 (150-400); RDW Coefficient Variation 19.9 % (11.7-14.2); RDW Standard Deviation 72.8 fL (35.1-46.3); Red Blood Cell Count 2.36 M/mm3 (3.80-5.20); White Blood Cell Count 4.15 K/mm3 (4.00-11.30)
[2024-10-02 17:18] LABS: Mean Platelet Volume 13.6 fL (9.1-12.4)
[2024-10-03] MEDS ORDERED: NS 250 ML IV SCH (09:20)
[2024-10-03 15:05] VITALS: BP 113/50
[2024-10-03 15:21] VITALS: BP 102/70
[2024-10-03 16:22] VITALS: BP 122/55
[2024-10-03 16:52] VITALS: BP 122/55
== END 2024-10-03 16:52 | disposition home or self-care (01) ==
LOC: ATC 08:52
PROVIDERS: Internal Medicine Hematology & Oncology
DX: D46.9 Myelodysplastic syndrome, unspecified (principal)
CPT/HCPCS: 36415; 36430; 85025; 86850; 86900; 86901; 86923; J7050; P9016

== ENCOUNTER 2024-10-17 12:23 | Emergency (ER) | payer MEDICARE, OTHER ==
[~2024-10-17] VITALS: Ht 152.4 cm; Wt 63.0 kg
[2024-10-17 12:59] VITALS: BP 114/47
== END 2024-10-17 16:15 | disposition home or self-care (01) ==
LOC: ER 12:23
DX: D64.9 Anemia, unspecified (principal); E11.9 Type 2 diabetes mellitus without complications; I10 Essential (primary) hypertension; J44.9 Chronic obstructive pulmonary disease, unspecified; M81.0 Age-related osteoporosis without current pathological fracture; Z87.891 Personal history of nicotine dependence; Z88.5 Allergy status to narcotic agent; Z79.82 Long term (current) use of aspirin; Z79.899 Other long term (current) drug therapy
CPT/HCPCS: 99282

== ENCOUNTER 2024-10-31 04:27 | Day surgery (SDC) | payer MEDICARE, OTHER ==
[2024-10-28 15:31] LABS: BASOPHILS ABSOLUTE AUTO 0.02 K/mm3 (0.00-0.23); BASOPHILS PERCENT AUTO 1 % (0-2); EOSINOPHILS PERCENT AUTO 3 % (0-6); Hemoglobin 7.2 g/dL (11.5-16.0); IMMATURE GRAN ABSOLUTE AUTO 0.01 K/mm3 (0.00-0.10); IMMATURE GRAN PERCENT AUTO 0 % (0-1); LYMPHOCYTES ABSOLUTE AUTO 1.04 K/mm3 (0.84-5.20); LYMPHOCYTES PERCENT AUTO 26 % (21-46); MONOCYTES PERCENT AUTO 28 % (4-13); Mean Corpuscular HGB 34.1 pg (26.0-34.0); Mean Corpuscular HGB Conc 32.7 g/dL (31.5-36.5); Mean Corpuscular Volume 104 fL (80-100); NEUTROPHILS ABSOLUTE AUTO 1.71 K/mm3 (1.96-9.15); NEUTROPHILS PERCENT AUTO 43 % (41-73); Platelet Count 184 K/mm3 (150-400); RDW Coefficient Variation 22.2 % (11.7-14.2); Red Blood Cell Count 2.11 M/mm3 (3.80-5.20); White Blood Cell Count 3.98 K/mm3 (4.00-11.30)
[2024-10-31] MEDS ORDERED: NS 250 ML IV SCH (06:45)
[2024-10-31] MEDS ORDERED: Furosemide 10 MG / ML 2ML Vial IV SCH (07:15)
[2024-10-31 13:40] VITALS: BP 108/45
[2024-10-31 14:00] VITALS: BP 112/45
[2024-10-31 15:00] VITALS: BP 112/47
[2024-10-31 15:30] VITALS: BP 115/50
== END 2024-10-31 15:30 | disposition home or self-care (01) ==
LOC: ATC 04:27 → EDSTATUS 13:30 → ATC 13:30
PROVIDERS: Internal Medicine Nephrology
DX: D46.9 Myelodysplastic syndrome, unspecified (principal); N18.2 Chronic kidney disease, stage 2 (mild); D63.1 Anemia in chronic kidney disease
CPT/HCPCS: 36415; 36430; 71045; 78452; 80048; 80053; 82947; 83690; 84484; 85025; 86850; 86900; 86901; 86923; 93005; 93010; 93017; 93306; 96374; 99285-25; A9270; A9500; G0378; J0706; J1940; J2785; J7050; P9016

== ENCOUNTER 2024-11-03 10:48 | Observation (INO) | payer MEDICARE, OTHER ==
[~2024-11-03] VITALS: Ht 152.4 cm; Wt 61.5 kg
[2024-11-03 11:18] LABS: Hematocrit 25.1 % (33.0-51.0); Hemoglobin 8.3 g/dL (11.5-16.0); Mean Corpuscular HGB 33.9 pg (26.0-34.0); Mean Corpuscular HGB Conc 33.1 g/dL (31.5-36.5); Mean Corpuscular Volume 102 fL (80-100); Platelet Count 170 K/mm3 (150-400); RDW Coefficient Variation 21.3 % (11.7-14.2); RDW Standard Deviation 76.1 fL (35.1-46.3); Red Blood Cell Count 2.45 M/mm3 (3.80-5.20)
[2024-11-03 11:26] LABS: White Blood Cell Count 4.08 K/mm3 (4.00-11.30)
[2024-11-03 11:52] LABS: Albumin, Blood 3.6 g/dL (3.4-5.0); Albumin/Globulin Ratio 1.3 (0.8-1.8); Bilirubin, Total 0.7 mg/dL (0.1-1.0); Bun/Creatinine Ratio 46.3 (12.0-20.0); Calcium, Blood 9.1 mg/dL (8.5-10.1); Creatinine, Blood 0.56 mg/dL (0.40-1.00); Globulin, Blood 2.8 g/dL (2.2-4.0); Potassium, Blood 4.1 mmol/L (3.5-5.5); Total Protein, Blood 6.4 g/dL (6.4-8.2)
[2024-11-03 12:11] LABS: BASOPHILS PERCENT MAN 0 % (0-2); EOSINOPHILS ABSOLUTE MAN 0.04 K/mm3 (0.00-0.68); EOSINOPHILS PERCENT MAN 1 % (0-6); LYMPHOCYTES PERCENT MAN 27 % (21-46); MONOCYTES ABSOLUTE MAN 0.73 K/mm3 (0.16-1.47); MONOCYTES PERCENT MAN 18 % (4-13); SEG NEUTROPHILS PERCENT MAN 54 % (41-73); TOTAL CELLS COUNTED 100
[2024-11-03] MEDS ORDERED: Aspirin 325 MG Tab PO ONE (14:20)
[2024-11-03] MEDS ORDERED: FLU VACC TS2024-25(6MOS UP)/PF 45 MCG/0.5 ML SYRINGE IM SCH (16:10)
[2024-11-03] MEDS ORDERED: Sertraline HCl 50 MG Tab PO SCH (17:00)
[2024-11-03] MEDS ORDERED: Insulin Regular 100 UNIT/ML 10ML Vial SC SCH (18:00)
[2024-11-03 19:52] VITALS: BP 129/56
[2024-11-04 02:10] VITALS: BP 119/57
[2024-11-04 05:46] LABS: BASOPHILS ABSOLUTE AUTO 0.02 K/mm3 (0.00-0.23); BASOPHILS PERCENT AUTO 1 % (0-2); EOSINOPHILS ABSOLUTE AUTO 0.12 K/mm3 (0.00-0.68); EOSINOPHILS PERCENT AUTO 3 % (0-6); Hematocrit 22.9 % (33.0-51.0); Hemoglobin 7.4 g/dL (11.5-16.0); IMMATURE GRAN ABSOLUTE AUTO 0.01 K/mm3 (0.00-0.10); IMMATURE GRAN PERCENT AUTO 0 % (0-1); LYMPHOCYTES ABSOLUTE AUTO 1.23 K/mm3 (0.84-5.20); LYMPHOCYTES PERCENT AUTO 31 % (21-46); MONOCYTES ABSOLUTE AUTO 1.06 K/mm3 (0.16-1.47); MONOCYTES PERCENT AUTO 27 % (4-13); Mean Corpuscular HGB 33.2 pg (26.0-34.0); Mean Corpuscular HGB Conc 32.3 g/dL (31.5-36.5); Mean Corpuscular Volume 103 fL (80-100); NEUTROPHILS ABSOLUTE AUTO 1.49 K/mm3 (1.96-9.15); NEUTROPHILS PERCENT AUTO 38 % (41-73); Platelet Count 149 K/mm3 (150-400); RDW Standard Deviation 74.8 fL (35.1-46.3); Red Blood Cell Count 2.23 M/mm3 (3.80-5.20); White Blood Cell Count 3.93 K/mm3 (4.00-11.30)
[2024-11-04 06:06] LABS: Bun/Creatinine Ratio 29.8 (12.0-20.0); Calcium, Blood 8.6 mg/dL (8.5-10.1); Creatinine, Blood 0.61 mg/dL (0.40-1.00); Potassium, Blood 4.2 mmol/L (3.5-5.5)
[2024-11-04 07:41] VITALS: BP 122/55
[2024-11-04] MEDS ORDERED: Aspirin 81 MG Chew PO SCH (09:00)
[2024-11-04] MEDS ORDERED: Acetaminophen 325 MG TABLET PO PRN (11:05)
[2024-11-04] MEDS ORDERED: Caffeine Citrated 60 MG/3 ML Vial ONE (14:56)
[2024-11-04] MEDS ORDERED: Regadenoson 0.4 MG/5 ML SYRINGE ONE (14:56)
[2024-11-04 16:10] VITALS: BP 110/56
[2024-11-04 20:13] VITALS: BP 107/55
[2024-11-05 04:27] VITALS: BP 111/51
[2024-11-05 07:24] VITALS: BP 118/49
== END 2024-11-05 14:32 | disposition home health service (06) ==
LOC: ER 10:48 → ERHOLD 10:49 → ER 10:49 → MEDS 10:49 → ERHOLD 19:20 → ENPENDDIS 11-05 12:50 → MEDS 11-05 14:32
PROVIDERS: Emergency Medicine; ADMIT Family Medicine
DX: R07.89 Other chest pain (principal); I10 Essential (primary) hypertension; E11.9 Type 2 diabetes mellitus without complications; K44.9 Diaphragmatic hernia without obstruction or gangrene; J44.9 Chronic obstructive pulmonary disease, unspecified; F03.90 Unspecified dementia, unspecified severity, without behavioral disturbance, psychotic disturbance, mood disturbance, and anxiety; D46.9 Myelodysplastic syndrome, unspecified; D63.1 Anemia in chronic kidney disease; M81.0 Age-related osteoporosis without current pathological fracture; N18.2 Chronic kidney disease, stage 2 (mild); Z87.891 Personal history of nicotine dependence; Z79.82 Long term (current) use of aspirin; Z79.4 Long term (current) use of insulin; Z79.899 Other long term (current) drug therapy; Z88.5 Allergy status to narcotic agent; Z90.710 Acquired absence of both cervix and uterus
CPT/HCPCS: 36415; 36430; 71045; 78452; 80048; 80053; 82947; 83690; 84484; 85025; 86850; 86900; 86901; 86923; 93005; 93010; 93017; 93306; 96374; 99285-25; A9270; A9500; G0378; J0706; J1940; J2785; J7050; P9016

== ENCOUNTER 2024-11-28 03:39 | Day surgery (SDC) | payer MEDICARE, OTHER ==
[2024-11-25 13:34] LABS: BASOPHILS ABSOLUTE AUTO 0.01 K/mm3 (0.00-0.23); BASOPHILS PERCENT AUTO 0 % (0-2); EOSINOPHILS ABSOLUTE AUTO 0.08 K/mm3 (0.00-0.68); EOSINOPHILS PERCENT AUTO 2 % (0-6); Hematocrit 22.2 % (33.0-51.0); Hemoglobin 7.1 g/dL (11.5-16.0); IMMATURE GRAN ABSOLUTE AUTO 0.02 K/mm3 (0.00-0.10); IMMATURE GRAN PERCENT AUTO 1 % (0-1); LYMPHOCYTES ABSOLUTE AUTO 0.96 K/mm3 (0.84-5.20); LYMPHOCYTES PERCENT AUTO 23 % (21-46); MONOCYTES ABSOLUTE AUTO 1.09 K/mm3 (0.16-1.47); MONOCYTES PERCENT AUTO 26 % (4-13); Mean Corpuscular HGB 34.1 pg (26.0-34.0); Mean Corpuscular Volume 107 fL (80-100); NEUTROPHILS ABSOLUTE AUTO 2.04 K/mm3 (1.96-9.15); NEUTROPHILS PERCENT AUTO 49 % (41-73); Platelet Count 192 K/mm3 (150-400); RDW Coefficient Variation 23.2 % (11.7-14.2); RDW Standard Deviation 86.3 fL (35.1-46.3); Red Blood Cell Count 2.08 M/mm3 (3.80-5.20)
[2024-11-25 13:42] LABS: Mean Platelet Volume 13.9 fL (9.1-12.4)
[2024-11-28] VITALS (7 sets, daily range): BP systolic 89–138; BP diastolic 38–98
[2024-11-28] MEDS ORDERED: NS 250 ML IV SCH (06:40)
== END 2024-11-28 12:44 | disposition home or self-care (01) ==
LOC: ATC 03:39 → EDSTATUS 07:30 → ATC 07:30
PROVIDERS: Internal Medicine Hematology & Oncology
DX: D46.9 Myelodysplastic syndrome, unspecified (principal); E11.9 Type 2 diabetes mellitus without complications
CPT/HCPCS: 36415; 36430; 85025; 86850; 86900; 86901; 86923; J7050; P9016

== ENCOUNTER 2024-12-24 01:22 | Day surgery (SDC) | payer MEDICARE ==
[2024-12-22 16:22] LABS: BASOPHILS ABSOLUTE AUTO 0.04 K/mm3 (0.00-0.23); BASOPHILS PERCENT AUTO 1 % (0-2); EOSINOPHILS ABSOLUTE AUTO 0.13 K/mm3 (0.00-0.68); EOSINOPHILS PERCENT AUTO 2 % (0-6); Hematocrit 28.1 % (33.0-51.0); IMMATURE GRAN ABSOLUTE AUTO 0.02 K/mm3 (0.00-0.10); IMMATURE GRAN PERCENT AUTO 0 % (0-1); LYMPHOCYTES ABSOLUTE AUTO 1.58 K/mm3 (0.84-5.20); LYMPHOCYTES PERCENT AUTO 29 % (21-46); MONOCYTES ABSOLUTE AUTO 1.44 K/mm3 (0.16-1.47); MONOCYTES PERCENT AUTO 26 % (4-13); Mean Corpuscular HGB 32.7 pg (26.0-34.0); Mean Corpuscular Volume 102 fL (80-100); NEUTROPHILS PERCENT AUTO 42 % (41-73); Platelet Count 220 K/mm3 (150-400); RDW Coefficient Variation 19.9 % (11.7-14.2); RDW Standard Deviation 73.3 fL (35.1-46.3); Red Blood Cell Count 2.75 M/mm3 (3.80-5.20); White Blood Cell Count 5.51 K/mm3 (4.00-11.30)
[2024-12-22 16:27] LABS: Mean Platelet Volume 13.2 fL (9.1-12.4)
[2024-12-22 16:56] LABS: Albumin, Blood 3.7 g/dL (3.4-5.0); Albumin/Globulin Ratio 1.2 (0.8-1.8); Bilirubin, Total 0.8 mg/dL (0.1-1.0); Bun/Creatinine Ratio 31.8 (12.0-20.0); Calcium, Blood 9.2 mg/dL (8.5-10.1); Creatinine, Blood 0.63 mg/dL (0.40-1.00); Phosphorus, Blood 3.3 mg/dL (2.5-4.9); Potassium, Blood 4.3 mmol/L (3.5-5.5); Total Protein, Blood 6.7 g/dL (6.4-8.2)
[2024-12-24] VITALS (7 sets, daily range): BP systolic 96–120; BP diastolic 46–77
[2024-12-24] MEDS ORDERED: NS 250 ML IV SCH (06:35)
[2024-12-25] MEDS ORDERED: Pepcid20 MG PO (11:49)
== END 2024-12-24 12:40 | disposition home or self-care (01) ==
LOC: ATC 01:22 → LAB FUT 10-20 13:30 → EDSTATUS 10-20 13:30
PROVIDERS: Internal Medicine Hematology & Oncology
DX: D46.9 Myelodysplastic syndrome, unspecified (principal); D63.1 Anemia in chronic kidney disease; Z79.899 Other long term (current) drug therapy
CPT/HCPCS: 36415; 36430; 80053; 84100; 85025; 86850; 86900; 86901; 86923; J7050; P9016

== ENCOUNTER 2024-12-25 10:10 | Emergency (ER) | payer MEDICARE ==
[~2024-12-25] VITALS: Ht 152.4 cm; Wt 62.1 kg
[2024-12-25 11:03] LABS: Hemoglobin 11.4 g/dL (11.5-16.0); Mean Corpuscular HGB 31.1 pg (26.0-34.0); Mean Corpuscular HGB Conc 32.6 g/dL (31.5-36.5); Mean Platelet Volume 11.9 fL (9.1-12.4); Platelet Count 165 K/mm3 (150-400); RDW Coefficient Variation 20.8 % (11.7-14.2); RDW Standard Deviation 72.2 fL (35.1-46.3); Red Blood Cell Count 3.66 M/mm3 (3.80-5.20)
[2024-12-25 11:04] LABS: Mean Corpuscular Volume 96 fL (80-100); White Blood Cell Count 5.99 K/mm3 (4.00-11.30)
[2024-12-25 11:15] VITALS: BP 95/47
[2024-12-25 11:28] LABS: Albumin, Blood 3.4 g/dL (3.4-5.0); Albumin/Globulin Ratio 1.2 (0.8-1.8); Bilirubin, Total 1.1 mg/dL (0.1-1.0); Bun/Creatinine Ratio 40.6 (12.0-20.0); Calcium, Blood 8.8 mg/dL (8.5-10.1); Creatinine, Blood 0.59 mg/dL (0.40-1.00); Globulin, Blood 2.8 g/dL (2.2-4.0); Potassium, Blood 4.4 mmol/L (3.5-5.5); Total Protein, Blood 6.2 g/dL (6.4-8.2)
[2024-12-25 11:32] LABS: BAND PERCENT MAN 4 % (0-8); BASOPHILS PERCENT MAN 0 % (0-2); EOSINOPHILS ABSOLUTE MAN 0.11 K/mm3 (0.00-0.68); EOSINOPHILS PERCENT MAN 2 % (0-6); LYMPHOCYTES ABSOLUTE MAN 0.89 K/mm3 (0.84-5.20); LYMPHOCYTES PERCENT MAN 15 % (21-46); MONOCYTES ABSOLUTE MAN 1.19 K/mm3 (0.16-1.47); MONOCYTES PERCENT MAN 20 % (4-13); NEUTROPHILS ABSOLUTE MAN 3.77 K/mm3 (1.96-9.15); SEG NEUTROPHILS PERCENT MAN 59 % (41-73); TOTAL CELLS COUNTED 100
[2024-12-25] MEDS ORDERED: Pepcid20 MG PO (11:49)
== END 2024-12-25 12:21 | disposition home or self-care (01) ==
LOC: ER 10:10
PROVIDERS: Emergency Medicine
DX: R07.89 Other chest pain (principal); K44.9 Diaphragmatic hernia without obstruction or gangrene; I10 Essential (primary) hypertension; E11.9 Type 2 diabetes mellitus without complications; J44.9 Chronic obstructive pulmonary disease, unspecified; M81.0 Age-related osteoporosis without current pathological fracture; Z87.891 Personal history of nicotine dependence; Z79.899 Other long term (current) drug therapy
CPT/HCPCS: 71045; 80053; 84484; 85025; 99285-25

== ENCOUNTER 2025-01-20 14:48 | Day surgery (SDC) | payer MEDICARE ==
[~2025-01-20 14:48] MED LIST changes: +Pepcid20 MG PO
[2025-01-20 17:20] LABS: BASOPHILS ABSOLUTE AUTO 0.01 K/mm3 (0.00-0.23); BASOPHILS PERCENT AUTO 0 % (0-2); EOSINOPHILS ABSOLUTE AUTO 0.07 K/mm3 (0.00-0.68); EOSINOPHILS PERCENT AUTO 2 % (0-6); Hematocrit 29.1 % (33.0-51.0); Hemoglobin 9.3 g/dL (11.5-16.0); IMMATURE GRAN ABSOLUTE AUTO 0.02 K/mm3 (0.00-0.10); IMMATURE GRAN PERCENT AUTO 1 % (0-1); LYMPHOCYTES ABSOLUTE AUTO 1.27 K/mm3 (0.84-5.20); LYMPHOCYTES PERCENT AUTO 29 % (21-46); MONOCYTES ABSOLUTE AUTO 1.04 K/mm3 (0.16-1.47); MONOCYTES PERCENT AUTO 24 % (4-13); Mean Corpuscular HGB 30.8 pg (26.0-34.0); Mean Corpuscular Volume 96 fL (80-100); NEUTROPHILS ABSOLUTE AUTO 1.96 K/mm3 (1.96-9.15); NEUTROPHILS PERCENT AUTO 45 % (41-73); Platelet Count 188 K/mm3 (150-400); RDW Coefficient Variation 19.8 % (11.7-14.2); RDW Standard Deviation 67.6 fL (35.1-46.3); Red Blood Cell Count 3.02 M/mm3 (3.80-5.20); White Blood Cell Count 4.37 K/mm3 (4.00-11.30)
[2025-01-20 17:26] LABS: Mean Platelet Volume 13.9 fL (9.1-12.4)
== END 2025-01-20 22:57 | disposition home or self-care (01) ==
LOC: ORSCMMR 14:48 → MHTC 14:48 → LAB SHORT 14:48 → LAB 14:48 → ORSCMMR 14:49 → EDSTATUS 18:44 → ORSCMMR 22:57 → LAB SHORT 22:57 → LAB 22:57
PROVIDERS: Internal Medicine Hematology & Oncology
DX: D46.9 Myelodysplastic syndrome, unspecified (principal)
CPT/HCPCS: 36415; 85025; 86850; 86900; 86901

== ENCOUNTER 2025-01-29 12:21 | Emergency (ER) | payer MEDICARE, OTHER ==
[~2025-01-29] VITALS: Ht 152.4 cm; Wt 59.0 kg
[2025-01-29 13:48] LABS: Source, Urine Clean Catch
[2025-01-29 14:11] LABS: Appearance, Urine Cloudy (Clear); Bilirubin, Urine Neg (Neg); Blood, Urine Neg (Neg); Color, Urine Yellow (P-Yellow); Glucose Qualitative, Urine Neg (Neg); Ketones, Urine Neg (Neg); Leukocyte Esterase, Urine Neg (Neg); Nitrite, Urine Neg (Neg); Protein, Urine Neg (Neg); Urobilinogen, Urine NORM (Normal)
[2025-01-29 14:27] LABS: BASOPHILS ABSOLUTE AUTO 0.01 K/mm3 (0.00-0.23); BASOPHILS PERCENT AUTO 0 % (0-2); EOSINOPHILS ABSOLUTE AUTO 0.07 K/mm3 (0.00-0.68); EOSINOPHILS PERCENT AUTO 2 % (0-6); Hematocrit 25.2 % (33.0-51.0); Hemoglobin 8.2 g/dL (11.5-16.0); IMMATURE GRAN ABSOLUTE AUTO 0.01 K/mm3 (0.00-0.10); IMMATURE GRAN PERCENT AUTO 0 % (0-1); LYMPHOCYTES ABSOLUTE AUTO 1.17 K/mm3 (0.84-5.20); LYMPHOCYTES PERCENT AUTO 28 % (21-46); MONOCYTES ABSOLUTE AUTO 1.17 K/mm3 (0.16-1.47); MONOCYTES PERCENT AUTO 28 % (4-13); Mean Corpuscular HGB 31.5 pg (26.0-34.0); Mean Corpuscular HGB Conc 32.5 g/dL (31.5-36.5); Mean Corpuscular Volume 97 fL (80-100); NEUTROPHILS ABSOLUTE AUTO 1.75 K/mm3 (1.96-9.15); NEUTROPHILS PERCENT AUTO 42 % (41-73); Platelet Count 142 K/mm3 (150-400); RDW Coefficient Variation 20.5 % (11.7-14.2); RDW Standard Deviation 70.2 fL (35.1-46.3); White Blood Cell Count 4.18 K/mm3 (4.00-11.30)
[2025-01-29 14:29] LABS: Amorphous Heavy (0-Heavy); Bacteria Rare /hpf; Red Blood Cells, Urine 0-2 /hpf (0-2); Squamous Epithelial Cells Rare /hpf (Few); White Blood Cells, Urine 0-2 /hpf (0-5)
[2025-01-29 14:44] LABS: Albumin, Blood 3.3 g/dL (3.4-5.0); Albumin/Globulin Ratio 1.2 (0.8-1.8); Bilirubin, Total 0.6 mg/dL (0.1-1.0); Bun/Creatinine Ratio 32.4 (12.0-20.0); Calcium, Blood 8.6 mg/dL (8.5-10.1); Creatinine, Blood 0.53 mg/dL (0.40-1.00); Globulin, Blood 2.8 g/dL (2.2-4.0); Potassium, Blood 4.3 mmol/L (3.5-5.5); Total Protein, Blood 6.1 g/dL (6.4-8.2)
[2025-01-29 17:40] VITALS: BP 115/60
== END 2025-01-29 17:40 | disposition home or self-care (01) ==
LOC: ER 12:21
PROVIDERS: Student in an Organized Health Care Education/Training Program
DX: R53.1 Weakness (principal); D64.9 Anemia, unspecified; Z87.891 Personal history of nicotine dependence; Z88.5 Allergy status to narcotic agent; Z79.51 Long term (current) use of inhaled steroids; Z79.1 Long term (current) use of non-steroidal anti-inflammatories (NSAID); E11.9 Type 2 diabetes mellitus without complications; I10 Essential (primary) hypertension; J44.9 Chronic obstructive pulmonary disease, unspecified; Z87.442 Personal history of urinary calculi
CPT/HCPCS: 80053; 81001; 85025; 93005; 93010; 99285-25

== ENCOUNTER 2025-02-01 22:26 | Emergency (ER) | payer MEDICARE, OTHER ==
[~2025-02-01] VITALS: Ht 152.4 cm; Wt 59.0 kg
[2025-02-01] MEDS ORDERED: Albuterol 2.5 MG/3 ML VIAL INH SCH (22:35)
[2025-02-01 23:30] LABS: BASOPHILS ABSOLUTE AUTO 0.01 K/mm3 (0.00-0.23); BASOPHILS PERCENT AUTO 0 % (0-2); EOSINOPHILS ABSOLUTE AUTO 0.06 K/mm3 (0.00-0.68); EOSINOPHILS PERCENT AUTO 1 % (0-6); Hematocrit 24.6 % (33.0-51.0); Hemoglobin 7.9 g/dL (11.5-16.0); IMMATURE GRAN ABSOLUTE AUTO 0.05 K/mm3 (0.00-0.10); IMMATURE GRAN PERCENT AUTO 1 % (0-1); LYMPHOCYTES PERCENT AUTO 10 % (21-46); MONOCYTES PERCENT AUTO 33 % (4-13); Mean Corpuscular HGB Conc 32.1 g/dL (31.5-36.5); Mean Corpuscular Volume 97 fL (80-100); NEUTROPHILS PERCENT AUTO 56 % (41-73); Platelet Count 143 K/mm3 (150-400); RDW Standard Deviation 70.8 fL (35.1-46.3); Red Blood Cell Count 2.55 M/mm3 (3.80-5.20); White Blood Cell Count 8.42 K/mm3 (4.00-11.30)
[2025-02-01 23:40] LABS: Albumin, Blood 3.9 g/dL (3.4-5.0); Albumin/Globulin Ratio 1.6 (0.8-1.8); Bilirubin, Total 0.8 mg/dL (0.1-1.0); Bun/Creatinine Ratio 34.7 (12.0-20.0); Calcium, Blood 9.1 mg/dL (8.5-10.1); Creatinine, Blood 0.49 mg/dL (0.40-1.00); Globulin, Blood 2.4 g/dL (2.2-4.0); Potassium, Blood 4.2 mmol/L (3.5-5.5); Total Protein, Blood 6.3 g/dL (6.4-8.2)
[2025-02-01 23:54] LABS: Influenza A, PCR NEGATIVE (NEGATIVE); Influenza B, PCR NEGATIVE (NEGATIVE); Resp Syncytial Virus, PCR NEGATIVE (NEGATIVE)
[2025-02-02 00:04] VITALS: BP 118/52
[2025-02-02 00:05] LABS: SARS-Cov-2 (COVID-19) PCR, MMC POSITIVE (NEGATIVE)
== END 2025-02-02 04:07 | disposition home or self-care (01) ==
LOC: ER 22:26
PROVIDERS: Emergency Medicine
DX: U07.1 COVID-19 (principal); J44.1 Chronic obstructive pulmonary disease with (acute) exacerbation; Z88.5 Allergy status to narcotic agent; E11.9 Type 2 diabetes mellitus without complications; Z79.899 Other long term (current) drug therapy; I10 Essential (primary) hypertension; M19.90 Unspecified osteoarthritis, unspecified site; Z87.891 Personal history of nicotine dependence; J06.9 Acute upper respiratory infection, unspecified; K44.9 Diaphragmatic hernia without obstruction or gangrene; M47.9 Spondylosis, unspecified
CPT/HCPCS: 0241U; 71045; 71046; 80053; 83880; 84484; 85025; 93005; 93010; 94640; 94664; 99285-25

== ENCOUNTER 2025-02-07 13:16 | Emergency (ER) | payer MEDICARE, OTHER ==
[~2025-02-07] VITALS: Ht 149.9 cm; Wt 61.2 kg
[2025-02-07 14:12] LABS: BASOPHILS ABSOLUTE AUTO 0.02 K/mm3 (0.00-0.23); BASOPHILS PERCENT AUTO 0 % (0-2); EOSINOPHILS ABSOLUTE AUTO 0.08 K/mm3 (0.00-0.68); EOSINOPHILS PERCENT AUTO 1 % (0-6); Hematocrit 24.9 % (33.0-51.0); Hemoglobin 7.7 g/dL (11.5-16.0); IMMATURE GRAN ABSOLUTE AUTO 0.11 K/mm3 (0.00-0.10); IMMATURE GRAN PERCENT AUTO 1 % (0-1); LYMPHOCYTES ABSOLUTE AUTO 0.98 K/mm3 (0.84-5.20); LYMPHOCYTES PERCENT AUTO 13 % (21-46); MONOCYTES ABSOLUTE AUTO 1.78 K/mm3 (0.16-1.47); MONOCYTES PERCENT AUTO 23 % (4-13); Mean Corpuscular HGB Conc 30.9 g/dL (31.5-36.5); Mean Corpuscular Volume 100 fL (80-100); NEUTROPHILS ABSOLUTE AUTO 4.84 K/mm3 (1.96-9.15); NEUTROPHILS PERCENT AUTO 62 % (41-73); NRBC ABSOLUTE 0.02 K/mm3 (0.00-0.02); NRBC Auto 0.3 /100 WBC (0.0-0.2); Platelet Count 145 K/mm3 (150-400); RDW Coefficient Variation 21.9 % (11.7-14.2); RDW Standard Deviation 77.4 fL (35.1-46.3); Red Blood Cell Count 2.48 M/mm3 (3.80-5.20); White Blood Cell Count 7.81 K/mm3 (4.00-11.30)
[2025-02-07 14:16] LABS: Mean Platelet Volume 13.3 fL (9.1-12.4)
[2025-02-07 14:31] LABS: Albumin, Blood 3.8 g/dL (3.4-5.0); Albumin/Globulin Ratio 1.4 (0.8-1.8); Bun/Creatinine Ratio 25.1 (12.0-20.0); Calcium, Blood 9.1 mg/dL (8.5-10.1); Creatinine, Blood 0.6 mg/dL (0.40-1.00); Globulin, Blood 2.8 g/dL (2.2-4.0); Potassium, Blood 4.7 mmol/L (3.5-5.5); Total Protein, Blood 6.6 g/dL (6.4-8.2)
[2025-02-07] MEDS ORDERED: NS 1,000 ML IV ONE (15:23)
[2025-02-07 21:33] VITALS: BP 123/50
== END 2025-02-07 21:56 | disposition home or self-care (01) ==
LOC: ER 13:16
PROVIDERS: Physician Assistant
DX: D64.9 Anemia, unspecified (principal); R06.02 Shortness of breath; E11.9 Type 2 diabetes mellitus without complications; I10 Essential (primary) hypertension; J44.9 Chronic obstructive pulmonary disease, unspecified; Z87.891 Personal history of nicotine dependence; Z88.5 Allergy status to narcotic agent
CPT/HCPCS: 36430; 71045; 80053; 85025; 86850; 86900; 86901; 86923; 93005; 93010; 99284-25; J7030; P9016

== ENCOUNTER 2025-02-10 17:50 | Emergency (ER) | payer MEDICARE, OTHER ==
[~2025-02-10] VITALS: Ht 152.4 cm; Wt 59.0 kg
[2025-02-10] MEDS ORDERED: Ipratropium/Albuterol SulF 2.5-0.5MG/3 ML Amp INH ONE (18:15)
[2025-02-10] MEDS ORDERED: NS 1,000 ML IV SCH (18:25)
[2025-02-10 18:30] LABS: Hematocrit 28.8 % (33.0-51.0); Hemoglobin 9.2 g/dL (11.5-16.0); Mean Corpuscular HGB 31.6 pg (26.0-34.0); Mean Corpuscular HGB Conc 31.9 g/dL (31.5-36.5); Mean Corpuscular Volume 99 fL (80-100); Platelet Count 171 K/mm3 (150-400); RDW Coefficient Variation 20.5 % (11.7-14.2); RDW Standard Deviation 72.3 fL (35.1-46.3); Red Blood Cell Count 2.91 M/mm3 (3.80-5.20)
[2025-02-10 18:36] LABS: Mean Platelet Volume 13.9 fL (9.1-12.4); White Blood Cell Count 6.63 K/mm3 (4.00-11.30)
[2025-02-10 18:50] LABS: BASOPHILS PERCENT MAN 0 % (0-2); EOSINOPHILS ABSOLUTE MAN 0.06 K/mm3 (0.00-0.68); EOSINOPHILS PERCENT MAN 1 % (0-6); LYMPHOCYTES ABSOLUTE MAN 1.79 K/mm3 (0.84-5.20); LYMPHOCYTES PERCENT MAN 27 % (21-46); MONOCYTES ABSOLUTE MAN 0.99 K/mm3 (0.16-1.47); MONOCYTES PERCENT MAN 15 % (4-13); MYELOCYTE ABSOLUTE MAN 0.06 K/mm3 (0.00-0.00); MYELOCYTE PERCENT MAN 1 % (0-0); NEUTROPHILS ABSOLUTE MAN 3.71 K/mm3 (1.96-9.15); SEG NEUTROPHILS PERCENT MAN 56 % (41-73); TOTAL CELLS COUNTED 100
[2025-02-10 19:14] LABS: Albumin, Blood 3.6 g/dL (3.4-5.0); Albumin/Globulin Ratio 1.2 (0.8-1.8); Bilirubin, Total 0.7 mg/dL (0.1-1.0); Calcium, Blood 9.1 mg/dL (8.5-10.1); Creatinine, Blood 0.58 mg/dL (0.40-1.00); Globulin, Blood 2.9 g/dL (2.2-4.0); Potassium, Blood 4.4 mmol/L (3.5-5.5); Total Protein, Blood 6.5 g/dL (6.4-8.2)
[2025-02-10 19:39] LABS: CORONAVIRUS COVID-19 AG Negative (NEGATIVE); INFLUENZA A AG Negative (NEGATIVE); INFLUENZA B AG Negative (NEGATIVE)
[2025-02-10] MEDS ORDERED: PredniSONE 20 MG Tab PO ONE (20:20)
[2025-02-10] MEDS ORDERED: PRED10 PO (20:21)
[2025-02-10] MEDS ORDERED: GUAIFENESIN ER600 MG PO (20:21)
[2025-02-10] MEDS ORDERED: MONDOXYNE NL100 MG PO (21:33)
[2025-02-10] MEDS ORDERED: Acetaminophen 325 MG TABLET PO ONE (21:55)
[2025-02-10 23:15] VITALS: BP 121/53
== END 2025-02-10 23:26 | disposition home or self-care (01) ==
LOC: ER 17:50
PROVIDERS: Emergency Medicine
DX: J44.9 Chronic obstructive pulmonary disease, unspecified (principal); D64.9 Anemia, unspecified; E11.9 Type 2 diabetes mellitus without complications; I10 Essential (primary) hypertension; M81.0 Age-related osteoporosis without current pathological fracture; Z87.891 Personal history of nicotine dependence; Z88.5 Allergy status to narcotic agent; Z79.899 Other long term (current) drug therapy
CPT/HCPCS: 71045; 80053; 83880; 84484; 85025; 87428-QW; 93005; 93010; 94644; 94664; 99285-25; A9270; J7030; J7512

== ENCOUNTER 2025-02-24 14:01 | Emergency (ER) | payer MEDICARE, OTHER ==
[~2025-02-24] VITALS: Ht 147.3 cm; Wt 53.5 kg
[~2025-02-24 14:01] MED LIST changes: +GUAIFENESIN ER600 MG PO; +MONDOXYNE NL100 MG PO; +PRED10 PO
[2025-02-24 15:06] LABS: BASOPHILS ABSOLUTE AUTO 0.01 K/mm3 (0.00-0.23); BASOPHILS PERCENT AUTO 0 % (0-2); EOSINOPHILS ABSOLUTE AUTO 0.04 K/mm3 (0.00-0.68); EOSINOPHILS PERCENT AUTO 1 % (0-6); Hematocrit 26.9 % (33.0-51.0); Hemoglobin 8.8 g/dL (11.5-16.0); IMMATURE GRAN ABSOLUTE AUTO 0.03 K/mm3 (0.00-0.10); IMMATURE GRAN PERCENT AUTO 0 % (0-1); LYMPHOCYTES ABSOLUTE AUTO 1.25 K/mm3 (0.84-5.20); LYMPHOCYTES PERCENT AUTO 19 % (21-46); MONOCYTES ABSOLUTE AUTO 2.28 K/mm3 (0.16-1.47); MONOCYTES PERCENT AUTO 34 % (4-13); Mean Corpuscular HGB 31.8 pg (26.0-34.0); Mean Corpuscular HGB Conc 32.7 g/dL (31.5-36.5); Mean Corpuscular Volume 97 fL (80-100); Mean Platelet Volume 12.8 fL (9.1-12.4); NEUTROPHILS PERCENT AUTO 46 % (41-73); Platelet Count 199 K/mm3 (150-400); RDW Coefficient Variation 20.6 % (11.7-14.2); RDW Standard Deviation 73.4 fL (35.1-46.3); Red Blood Cell Count 2.77 M/mm3 (3.80-5.20); White Blood Cell Count 6.71 K/mm3 (4.00-11.30)
[2025-02-24 15:28] LABS: Albumin, Blood 3.7 g/dL (3.4-5.0); Albumin/Globulin Ratio 1.2 (0.8-1.8); Bilirubin, Total 0.9 mg/dL (0.1-1.0); Bun/Creatinine Ratio 36.1 (12.0-20.0); Creatinine, Blood 0.83 mg/dL (0.40-1.00); Globulin, Blood 3.1 g/dL (2.2-4.0); Potassium, Blood 4.4 mmol/L (3.5-5.5); Total Protein, Blood 6.8 g/dL (6.4-8.2)
[2025-02-24 18:28] LABS: Source, Urine Straight Cath
[2025-02-24 18:39] LABS: Appearance, Urine Hazy (Clear); Bilirubin, Urine Neg (Neg); Blood, Urine 5+ (Neg); Color, Urine Amber (P-Yellow); Glucose Qualitative, Urine Neg (Neg); Ketones, Urine Neg (Neg); Leukocyte Esterase, Urine 2+ (Neg); Nitrite, Urine Neg (Neg); Protein, Urine 2+ (Neg); Urobilinogen, Urine 1+ (Normal)
[2025-02-24 18:58] LABS: Red Blood Cells, Urine TNTC /hpf (0-2)
[2025-02-24 19:00] LABS: Bacteria Mod /hpf; Squamous Epithelial Cells Not Seen /hpf (Few)
[2025-02-24] MEDS ORDERED: MACRODANTIN100 M1 PO (19:42)
[2025-02-24 20:29] VITALS: BP 139/64
== END 2025-02-24 20:46 | disposition home or self-care (01) ==
LOC: ER 14:01
PROVIDERS: Emergency Medicine
DX: N39.0 Urinary tract infection, site not specified (principal); M19.90 Unspecified osteoarthritis, unspecified site; J44.9 Chronic obstructive pulmonary disease, unspecified; E11.9 Type 2 diabetes mellitus without complications; I10 Essential (primary) hypertension; Z87.891 Personal history of nicotine dependence; Z79.52 Long term (current) use of systemic steroids; Z79.899 Other long term (current) drug therapy; Z88.5 Allergy status to narcotic agent
CPT/HCPCS: 80053; 81001; 85025; 87086; 99285-25

== ENCOUNTER 2025-02-28 12:18 | Emergency (ER) | payer MEDICARE, OTHER ==
[~2025-02-28] VITALS: Ht 144.8 cm; Wt 59.0 kg
[~2025-02-28 12:18] MED LIST changes: +MACRODANTIN100 M1 PO
[2025-02-28 12:19] VITALS: BP 141/80
== END 2025-02-28 12:43 | disposition home or self-care (01) ==
LOC: ER 12:18
DX: R11.10 Vomiting, unspecified (principal); T36.95XA Adverse effect of unspecified systemic antibiotic, initial encounter; J44.9 Chronic obstructive pulmonary disease, unspecified; E11.9 Type 2 diabetes mellitus without complications; Z88.5 Allergy status to narcotic agent; M19.90 Unspecified osteoarthritis, unspecified site; I10 Essential (primary) hypertension; Z79.52 Long term (current) use of systemic steroids; Z79.899 Other long term (current) drug therapy
CPT/HCPCS: 99283

== ENCOUNTER 2025-03-06 02:16 | Day surgery (SDC) | payer MEDICARE, OTHER ==
[2025-03-03 19:51] LABS: BASOPHILS ABSOLUTE AUTO 0.01 K/mm3 (0.00-0.23); BASOPHILS PERCENT AUTO 0 % (0-2); EOSINOPHILS ABSOLUTE AUTO 0.05 K/mm3 (0.00-0.68); EOSINOPHILS PERCENT AUTO 1 % (0-6); Hematocrit 23.6 % (33.0-51.0); Hemoglobin 7.8 g/dL (11.5-16.0); IMMATURE GRAN ABSOLUTE AUTO 0.06 K/mm3 (0.00-0.10); IMMATURE GRAN PERCENT AUTO 1 % (0-1); LYMPHOCYTES ABSOLUTE AUTO 1.32 K/mm3 (0.84-5.20); LYMPHOCYTES PERCENT AUTO 28 % (21-46); MONOCYTES ABSOLUTE AUTO 1.21 K/mm3 (0.16-1.47); MONOCYTES PERCENT AUTO 26 % (4-13); Mean Corpuscular HGB 31.7 pg (26.0-34.0); Mean Corpuscular HGB Conc 33.1 g/dL (31.5-36.5); Mean Corpuscular Volume 96 fL (80-100); NEUTROPHILS ABSOLUTE AUTO 2.05 K/mm3 (1.96-9.15); NEUTROPHILS PERCENT AUTO 44 % (41-73); NRBC ABSOLUTE 0.02 K/mm3 (0.00-0.02); NRBC Auto 0.4 /100 WBC (0.0-0.2); Platelet Count 132 K/mm3 (150-400); RDW Coefficient Variation 20.8 % (11.7-14.2); RDW Standard Deviation 70.9 fL (35.1-46.3); Red Blood Cell Count 2.46 M/mm3 (3.80-5.20)
[2025-03-06] MEDS ORDERED: NS 250 ML IV SCH (07:00)
[2025-03-06 14:06] VITALS: BP 105/57
--- NOTE | 2025-03-06 14:36 | NUR ---
Luz's caregiver reports that Luz has been declining to take her routine medications the past several days.
[2025-03-06 14:41] VITALS: BP 106/47
[2025-03-06 15:43] VITALS: BP 126/48
[2025-03-06 16:37] VITALS: BP 135/63
[2025-03-06 16:55] VITALS: BP 120/54
[2025-03-06 18:22] VITALS: BP 128/57
== END 2025-03-06 18:31 | disposition home or self-care (01) ==
LOC: ATC 02:16
PROVIDERS: Internal Medicine Hematology & Oncology
DX: D46.9 Myelodysplastic syndrome, unspecified (principal)
CPT/HCPCS: 36415; 36430; 85025; 86850; 86900; 86901; 86923; J7050; P9016

== ENCOUNTER 2025-04-23 02:32 | Day surgery (SDC) | payer MEDICARE, OTHER ==
[2025-04-23] MEDS ORDERED: NS 250 ML IV SCH (06:55)
[2025-04-23 14:37] VITALS: BP 127/50
[2025-04-23 14:56] VITALS: BP 108/52
[2025-04-23 15:57] VITALS: BP 120/63
[2025-04-23 16:13] VITALS: BP 120/63
[2025-04-23 16:31] VITALS: BP 118/63
== END 2025-04-23 17:52 | disposition home or self-care (01) ==
LOC: ATC 02:32 → EDSTATUS 13:30 → ATC 17:52
DX: D46.9 Myelodysplastic syndrome, unspecified (principal); M51.369 Other intervertebral disc degeneration, lumbar region without mention of lumbar back pain or lower extremity pain; E11.9 Type 2 diabetes mellitus without complications; Z87.891 Personal history of nicotine dependence; Z79.82 Long term (current) use of aspirin; Z79.899 Other long term (current) drug therapy
CPT/HCPCS: 36415; 36430; 85025; 86850; 86900; 86901; 86923; J7050; P9016

== ENCOUNTER 2025-04-28 20:02 | Emergency (ER) | payer MEDICARE, OTHER ==
[~2025-04-28] VITALS: Ht 152.4 cm; Wt 47.6 kg
[2025-04-28 20:36] LABS: Hematocrit 32.3 % (33.0-51.0); Hemoglobin 10.4 g/dL (11.5-16.0); Mean Corpuscular HGB Conc 32.2 g/dL (31.5-36.5); Mean Corpuscular Volume 95 fL (80-100); Platelet Count 87 K/mm3 (150-400); RDW Coefficient Variation 19.2 % (11.7-14.2); RDW Standard Deviation 66.0 fL (35.1-46.3)
[2025-04-28 20:37] LABS: BASOPHILS ABSOLUTE AUTO 0.01 K/mm3 (0.00-0.23); BASOPHILS PERCENT AUTO 0 % (0-2); EOSINOPHILS ABSOLUTE AUTO 0.09 K/mm3 (0.00-0.68); EOSINOPHILS PERCENT AUTO 2 % (0-6); IMMATURE GRAN ABSOLUTE AUTO 0.02 K/mm3 (0.00-0.10); IMMATURE GRAN PERCENT AUTO 1 % (0-1); LYMPHOCYTES ABSOLUTE AUTO 1.51 K/mm3 (0.84-5.20); LYMPHOCYTES PERCENT AUTO 34 % (21-46); MONOCYTES ABSOLUTE AUTO 1.12 K/mm3 (0.16-1.47); MONOCYTES PERCENT AUTO 25 % (4-13); NEUTROPHILS ABSOLUTE AUTO 1.69 K/mm3 (1.96-9.15); NEUTROPHILS PERCENT AUTO 38 % (41-73); NRBC ABSOLUTE 0.00 K/mm3 (0.00-0.02); NRBC Auto 0.0 /100 WBC (0.0-0.2)
[2025-04-28 20:56] LABS: Alanine Aminotransfer (ALT/SGP 29.0 U/L (12-78); Albumin, Blood 3.7 g/dL (3.4-5.0); Albumin/Globulin Ratio 1.2 (0.8-1.8); Anion Gap 4.0 mmol/L (3-11); Aspartate Aminotrans (AST/SGOT 19.0 U/L (12-37); Bilirubin, Total 0.6 mg/dL (0.1-1.0); Blood Urea Nitrogen 18.0 mg/dL (8-24); CO2, Blood 33.0 mmol/L (21-32); Calcium, Blood 9.0 mg/dL (8.5-10.1); Chloride, Blood 107.0 mmol/L (98-108); Creatinine, Blood 0.62 mg/dL (0.40-1.00); Globulin, Blood 3.1 g/dL (2.2-4.0); Glucose, Blood 88.0 mg/dL (70-99); Potassium, Blood 4.4 mmol/L (3.5-5.5); Sodium, Blood 140.0 mmol/L (136-145); Total Protein, Blood 6.8 g/dL (6.4-8.2)
[2025-04-28] MEDS ORDERED: Acetaminophen/Codeine 300-30 mg PO ONE (23:20)
[2025-04-28] MEDS ORDERED: Voltaren100 GM TOP (23:28)
[2025-04-29 00:15] VITALS: BP 113/60
== END 2025-04-29 06:54 | disposition home or self-care (01) ==
LOC: ER 20:02
PROVIDERS: Emergency Medicine
DX: S46.912A Strain of unspecified muscle, fascia and tendon at shoulder and upper arm level, left arm, initial encounter (principal); R07.9 Chest pain, unspecified; I10 Essential (primary) hypertension; J44.9 Chronic obstructive pulmonary disease, unspecified; M19.90 Unspecified osteoarthritis, unspecified site; Z88.5 Allergy status to narcotic agent; Z79.899 Other long term (current) drug therapy; E11.9 Type 2 diabetes mellitus without complications; Z87.442 Personal history of urinary calculi; Z87.891 Personal history of nicotine dependence; X58.XXXA Exposure to other specified factors, initial encounter
CPT/HCPCS: 71046; 80053; 84484; 85025; 93005; 93010; 99285-25; A9270

== ENCOUNTER 2025-05-13 20:24 | Emergency (ER) | payer MEDICARE, OTHER ==
[~2025-05-13] VITALS: Ht 162.6 cm; Wt 59.0 kg
[~2025-05-13 20:24] MED LIST changes: +Voltaren100 GM TOP
[2025-05-13] MEDS ORDERED: HYDROmorphone HCl/Pf 1MG SYR IV ONE (21:10)
[2025-05-13 22:15] LABS: BASOPHILS ABSOLUTE AUTO 0.01 K/mm3 (0.00-0.23); BASOPHILS PERCENT AUTO 0 % (0-2); EOSINOPHILS ABSOLUTE AUTO 0.08 K/mm3 (0.00-0.68); EOSINOPHILS PERCENT AUTO 1 % (0-6); Hematocrit 29.9 % (33.0-51.0); Hemoglobin 9.6 g/dL (11.5-16.0); IMMATURE GRAN ABSOLUTE AUTO 0.02 K/mm3 (0.00-0.10); IMMATURE GRAN PERCENT AUTO 0 % (0-1); LYMPHOCYTES ABSOLUTE AUTO 1.39 K/mm3 (0.84-5.20); LYMPHOCYTES PERCENT AUTO 24 % (21-46); MONOCYTES ABSOLUTE AUTO 1.71 K/mm3 (0.16-1.47); MONOCYTES PERCENT AUTO 29 % (4-13); Mean Corpuscular HGB Conc 32.1 g/dL (31.5-36.5); Mean Corpuscular Volume 96 fL (80-100); NEUTROPHILS ABSOLUTE AUTO 2.69 K/mm3 (1.96-9.15); NEUTROPHILS PERCENT AUTO 46 % (41-73); NRBC ABSOLUTE 0.00 K/mm3 (0.00-0.02); NRBC Auto 0.0 /100 WBC (0.0-0.2); Platelet Count 142 K/mm3 (150-400); RDW Coefficient Variation 20.1 % (11.7-14.2); RDW Standard Deviation 69.3 fL (35.1-46.3)
[2025-05-13 22:43] LABS: Alanine Aminotransfer (ALT/SGP 24.0 U/L (12-78); Albumin, Blood 3.6 g/dL (3.4-5.0); Albumin/Globulin Ratio 1.1 (0.8-1.8); Anion Gap 6.0 mmol/L (3-11); Aspartate Aminotrans (AST/SGOT 18.0 U/L (12-37); Bilirubin, Total 0.7 mg/dL (0.1-1.0); Blood Urea Nitrogen 18.0 mg/dL (8-24); CO2, Blood 32.0 mmol/L (21-32); Calcium, Blood 8.7 mg/dL (8.5-10.1); Chloride, Blood 108.0 mmol/L (98-108); Creatinine, Blood 0.66 mg/dL (0.40-1.00); Globulin, Blood 3.2 g/dL (2.2-4.0); Glucose, Blood 101.0 mg/dL (70-99); Potassium, Blood 4.5 mmol/L (3.5-5.5); Sodium, Blood 141.0 mmol/L (136-145); Total Protein, Blood 6.8 g/dL (6.4-8.2)
[2025-05-13 23:15] LABS: Source, Urine Clean Catch
[2025-05-13 23:27] LABS: Bilirubin, Urine Neg (Neg); Glucose Qualitative, Urine Neg (Neg); Ketones, Urine Neg (Neg); Leukocyte Esterase, Urine Neg (Neg); Protein, Urine 1+ (Neg); Specific Gravity, Urine 1.015 (1.003-1.022); Urobilinogen, Urine NORM (Normal)
[2025-05-13 23:33] LABS: Color, Urine Yellow (P-Yellow)
[2025-05-13 23:34] LABS: Red Blood Cells, Urine 0-2 /hpf (0-2); White Blood Cells, Urine 0-2 /hpf (0-5)
[2025-05-13] MEDS ORDERED: MIRALAX17 GM PO (23:42)
[2025-05-13] MEDS ORDERED: Docusate Sodiu100 M1 PO (23:42)
[2025-05-13] MEDS ORDERED: TAMS.4ER PO (23:42)
[2025-05-13 23:57] VITALS: BP 120/93
[2025-05-14] MEDS ORDERED: HYDROmorphone HCl/Pf 1MG SYR IV ONE (00:30)
== END 2025-05-14 01:06 | disposition home or self-care (01) ==
LOC: ER 20:24
PROVIDERS: Student in an Organized Health Care Education/Training Program
DX: N20.0 Calculus of kidney (principal); K59.00 Constipation, unspecified; E11.9 Type 2 diabetes mellitus without complications; I10 Essential (primary) hypertension; J44.9 Chronic obstructive pulmonary disease, unspecified; Z88.5 Allergy status to narcotic agent; Z79.899 Other long term (current) drug therapy; Z87.891 Personal history of nicotine dependence
CPT/HCPCS: 74177; 80053; 81001; 83690; 85025; 96374; 99284-25; J1171; Q9967

== ENCOUNTER 2025-06-04 08:06 | Day surgery (SDC) | payer MEDICARE, OTHER ==
[2025-06-02 17:45] LABS: BASOPHILS ABSOLUTE AUTO 0.01 K/mm3 (0.00-0.23); BASOPHILS PERCENT AUTO 0 % (0-2); EOSINOPHILS ABSOLUTE AUTO 0.07 K/mm3 (0.00-0.68); EOSINOPHILS PERCENT AUTO 2 % (0-6); Hematocrit 26.1 % (33.0-51.0); Hemoglobin 8.2 g/dL (11.5-16.0); IMMATURE GRAN ABSOLUTE AUTO 0.03 K/mm3 (0.00-0.10); IMMATURE GRAN PERCENT AUTO 1 % (0-1); LYMPHOCYTES ABSOLUTE AUTO 0.99 K/mm3 (0.84-5.20); LYMPHOCYTES PERCENT AUTO 23 % (21-46); MONOCYTES ABSOLUTE AUTO 1.24 K/mm3 (0.16-1.47); MONOCYTES PERCENT AUTO 29 % (4-13); Mean Corpuscular HGB Conc 31.4 g/dL (31.5-36.5); Mean Corpuscular Volume 100 fL (80-100); NEUTROPHILS ABSOLUTE AUTO 1.90 K/mm3 (1.96-9.15); NEUTROPHILS PERCENT AUTO 45 % (41-73); NRBC ABSOLUTE 0.00 K/mm3 (0.00-0.02); NRBC Auto 0.0 /100 WBC (0.0-0.2); Platelet Count 134 K/mm3 (150-400); RDW Coefficient Variation 22.1 % (11.7-14.2); RDW Standard Deviation 77.0 fL (35.1-46.3)
[~2025-06-04 08:06] MED LIST changes: +Docusate Sodiu100 M1 PO; +MIRALAX17 GM PO; +NS 250 ML IV SCH
[2025-06-04 14:15] VITALS: BP 118/59
[2025-06-04 14:35] VITALS: BP 113/53
[2025-06-04 15:35] VITALS: BP 113/78
[2025-06-04 16:11] VITALS: BP 155/60
== END 2025-06-04 16:15 | disposition home or self-care (01) ==
LOC: ATC 08:06
PROVIDERS: Internal Medicine Hematology & Oncology
DX: D46.9 Myelodysplastic syndrome, unspecified (principal)
CPT/HCPCS: 36415; 36430; 85025; 86850; 86900; 86901; 86923; J7050; P9016

== ENCOUNTER 2025-06-30 14:25 | Emergency (ER) | payer MEDICARE, OTHER ==
[~2025-06-30] VITALS: Ht 157.5 cm; Wt 59.0 kg
[~2025-06-30 14:25] MED LIST changes: -NS 250 ML IV SCH
[2025-06-30 15:24] LABS: BASOPHILS ABSOLUTE AUTO 0.01 K/mm3 (0.00-0.23); BASOPHILS PERCENT AUTO 0 % (0-2); EOSINOPHILS ABSOLUTE AUTO 0.06 K/mm3 (0.00-0.68); EOSINOPHILS PERCENT AUTO 1 % (0-6); Hematocrit 23.7 % (33.0-51.0); Hemoglobin 7.8 g/dL (11.5-16.0); IMMATURE GRAN ABSOLUTE AUTO 0.03 K/mm3 (0.00-0.10); IMMATURE GRAN PERCENT AUTO 1 % (0-1); LYMPHOCYTES ABSOLUTE AUTO 1.11 K/mm3 (0.84-5.20); LYMPHOCYTES PERCENT AUTO 25 % (21-46); MONOCYTES ABSOLUTE AUTO 1.30 K/mm3 (0.16-1.47); MONOCYTES PERCENT AUTO 30 % (4-13); Mean Corpuscular HGB Conc 32.9 g/dL (31.5-36.5); Mean Corpuscular Volume 97 fL (80-100); NEUTROPHILS ABSOLUTE AUTO 1.88 K/mm3 (1.96-9.15); NEUTROPHILS PERCENT AUTO 43 % (41-73); NRBC ABSOLUTE 0.00 K/mm3 (0.00-0.02); NRBC Auto 0.0 /100 WBC (0.0-0.2); Platelet Count 116 K/mm3 (150-400); RDW Coefficient Variation 22.1 % (11.7-14.2); RDW Standard Deviation 77.4 fL (35.1-46.3)
[2025-06-30 15:38] LABS: Alanine Aminotransfer (ALT/SGP 24.0 U/L (12-78); Albumin, Blood 3.8 g/dL (3.4-5.0); Albumin/Globulin Ratio 1.4 (0.8-1.8); Anion Gap 4.0 mmol/L (3-11); Aspartate Aminotrans (AST/SGOT 19.0 U/L (12-37); Bilirubin, Total 0.7 mg/dL (0.1-1.0); Blood Urea Nitrogen 17.0 mg/dL (8-24); CO2, Blood 33.0 mmol/L (21-32); Calcium, Blood 9.3 mg/dL (8.5-10.1); Chloride, Blood 105.0 mmol/L (98-108); Creatinine, Blood 0.56 mg/dL (0.40-1.00); Globulin, Blood 2.7 g/dL (2.2-4.0); Glucose, Blood 111.0 mg/dL (70-99); Potassium, Blood 4.4 mmol/L (3.5-5.5); Sodium, Blood 138.0 mmol/L (136-145); Total Protein, Blood 6.5 g/dL (6.4-8.2)
[2025-06-30] MEDS ORDERED: NS 1,000 ML IV SCH (19:20)
[2025-06-30 21:52] VITALS: BP 124/56
== END 2025-06-30 22:58 | disposition home or self-care (01) ==
LOC: ER 14:25
PROVIDERS: Emergency Medicine
DX: D64.9 Anemia, unspecified (principal); E11.9 Type 2 diabetes mellitus without complications; I10 Essential (primary) hypertension; M19.90 Unspecified osteoarthritis, unspecified site; Z87.891 Personal history of nicotine dependence; Z79.52 Long term (current) use of systemic steroids; Z79.899 Other long term (current) drug therapy; Z88.5 Allergy status to narcotic agent
CPT/HCPCS: 36430; 80053; 85025; 86850; 86900; 86901; 86923; 99283-25; J7030; P9016

== ENCOUNTER 2025-07-08 13:44 | Emergency (ER) | payer MEDICARE, OTHER ==
[~2025-07-08] VITALS: Ht 154.9 cm; Wt 49.9 kg
[2025-07-08 14:39] LABS: Hematocrit 26.3 % (33.0-51.0); Hemoglobin 8.5 g/dL (11.5-16.0); Mean Corpuscular HGB Conc 32.3 g/dL (31.5-36.5); Mean Corpuscular Volume 99 fL (80-100); Platelet Count 104 K/mm3 (150-400); RDW Coefficient Variation 21.2 % (11.7-14.2); RDW Standard Deviation 75.2 fL (35.1-46.3)
[2025-07-08 14:40] LABS: NRBC ABSOLUTE 0.02 K/mm3 (0.00-0.02); NRBC Auto 0.4 /100 WBC (0.0-0.2)
[2025-07-08 14:58] LABS: BASOPHILS ABSOLUTE MAN 0.00 K/mm3 (0.00-0.23); BASOPHILS PERCENT MAN 0 % (0-2); EOSINOPHILS ABSOLUTE MAN 0.04 K/mm3 (0.00-0.68); EOSINOPHILS PERCENT MAN 1 % (0-6); LYMPHOCYTES ABSOLUTE MAN 1.10 K/mm3 (0.84-5.20); LYMPHOCYTES PERCENT MAN 24 % (21-46); MONOCYTES ABSOLUTE MAN 1.47 K/mm3 (0.16-1.47); MONOCYTES PERCENT MAN 32 % (4-13); NEUTROPHILS ABSOLUTE MAN 1.98 K/mm3 (1.96-9.15); SEG NEUTROPHILS PERCENT MAN 43 % (41-73)
[2025-07-08 15:09] LABS: Alanine Aminotransfer (ALT/SGP 25.0 U/L (12-78); Albumin, Blood 3.5 g/dL (3.4-5.0); Albumin/Globulin Ratio 1.3 (0.8-1.8); Anion Gap 5.0 mmol/L (3-11); Aspartate Aminotrans (AST/SGOT 28.0 U/L (12-37); Bilirubin, Total 0.7 mg/dL (0.1-1.0); Blood Urea Nitrogen 22.0 mg/dL (8-24); CO2, Blood 34.0 mmol/L (21-32); Calcium, Blood 8.6 mg/dL (8.5-10.1); Chloride, Blood 107.0 mmol/L (98-108); Creatinine, Blood 0.52 mg/dL (0.40-1.00); Globulin, Blood 2.6 g/dL (2.2-4.0); Glucose, Blood 103.0 mg/dL (70-99); Potassium, Blood 4.5 mmol/L (3.5-5.5); Sodium, Blood 141.0 mmol/L (136-145); Total Protein, Blood 6.1 g/dL (6.4-8.2)
[2025-07-08 16:00] VITALS: BP 116/58
== END 2025-07-08 17:30 | disposition home or self-care (01) ==
LOC: ER 13:44
PROVIDERS: Emergency Medicine
DX: R07.9 Chest pain, unspecified (principal); K44.9 Diaphragmatic hernia without obstruction or gangrene; R41.0 Disorientation, unspecified; E11.9 Type 2 diabetes mellitus without complications; I10 Essential (primary) hypertension; J44.9 Chronic obstructive pulmonary disease, unspecified; M19.90 Unspecified osteoarthritis, unspecified site; Z59.89 Other problems related to housing and economic circumstances; Z88.5 Allergy status to narcotic agent; Z79.899 Other long term (current) drug therapy; Z87.442 Personal history of urinary calculi; Z87.891 Personal history of nicotine dependence
CPT/HCPCS: 71045; 80053; 84484; 85025; 93005; 93010; 99282; 99285-25

== ENCOUNTER 2025-07-08 18:22 | Emergency (ER) | payer MEDICARE, OTHER ==
[~2025-07-08] VITALS: Ht 157.5 cm; Wt 61.2 kg
[2025-07-08 19:26] VITALS: BP 130/63
== END 2025-07-08 19:38 | disposition home or self-care (01) ==
LOC: ER 18:22
DX: R41.0 Disorientation, unspecified (principal); Z59.89 Other problems related to housing and economic circumstances; Z88.5 Allergy status to narcotic agent; Z79.899 Other long term (current) drug therapy; E11.9 Type 2 diabetes mellitus without complications; I10 Essential (primary) hypertension; J44.9 Chronic obstructive pulmonary disease, unspecified; M19.90 Unspecified osteoarthritis, unspecified site; Z87.442 Personal history of urinary calculi; Z87.891 Personal history of nicotine dependence
CPT/HCPCS: 99282

== ENCOUNTER 2025-07-12 18:05 | Inpatient (IN) | payer MEDICARE, OTHER ==
[~2025-07-12] VITALS: Ht 157.5 cm; Wt 61.0 kg
[2025-07-12 18:53] LABS: BASOPHILS ABSOLUTE AUTO 0.01 K/mm3 (0.00-0.23); BASOPHILS PERCENT AUTO 0 % (0-2); EOSINOPHILS ABSOLUTE AUTO 0.07 K/mm3 (0.00-0.68); EOSINOPHILS PERCENT AUTO 1 % (0-6); Hematocrit 27.8 % (33.0-51.0); Hemoglobin 8.9 g/dL (11.5-16.0); IMMATURE GRAN ABSOLUTE AUTO 0.02 K/mm3 (0.00-0.10); IMMATURE GRAN PERCENT AUTO 0 % (0-1); LYMPHOCYTES ABSOLUTE AUTO 1.35 K/mm3 (0.84-5.20); LYMPHOCYTES PERCENT AUTO 27 % (21-46); MONOCYTES ABSOLUTE AUTO 1.55 K/mm3 (0.16-1.47); MONOCYTES PERCENT AUTO 31 % (4-13); Mean Corpuscular HGB Conc 32.0 g/dL (31.5-36.5); Mean Corpuscular Volume 99 fL (80-100); NEUTROPHILS ABSOLUTE AUTO 2.09 K/mm3 (1.96-9.15); NEUTROPHILS PERCENT AUTO 41 % (41-73); NRBC ABSOLUTE 0.00 K/mm3 (0.00-0.02); NRBC Auto 0.0 /100 WBC (0.0-0.2); Platelet Count 117 K/mm3 (150-400); RDW Coefficient Variation 21.2 % (11.7-14.2); RDW Standard Deviation 75.9 fL (35.1-46.3)
[2025-07-12 19:00] LABS: Source, Urine Clean Catch
[2025-07-12 19:03] LABS: Anion Gap 6.0 mmol/L (3-11); Blood Urea Nitrogen 22.0 mg/dL (8-24); CO2, Blood 33.0 mmol/L (21-32); Calcium, Blood 8.8 mg/dL (8.5-10.1); Chloride, Blood 105.0 mmol/L (98-108); Creatinine, Blood 0.59 mg/dL (0.40-1.00); Glucose, Blood 104.0 mg/dL (70-99); Potassium, Blood 4.5 mmol/L (3.5-5.5); Sodium, Blood 139.0 mmol/L (136-145)
[2025-07-12 19:07] LABS: Bilirubin, Urine Neg (Neg); Color, Urine Amber (P-Yellow); Glucose Qualitative, Urine Neg (Neg); Ketones, Urine Neg (Neg); Leukocyte Esterase, Urine 1+ (Neg); Protein, Urine 3+ (Neg); Specific Gravity, Urine 1.010 (1.003-1.022); Urobilinogen, Urine 1+ (Normal)
[2025-07-12 19:20] LABS: Red Blood Cells, Urine TNTC /hpf (0-2)
[2025-07-12] MEDS ORDERED: CefTRIAXone Sodium 1,000 MG in NS 100 ML IV ONE (19:25)
[2025-07-12] MEDS ORDERED: NS 1,000 ML IV SCH (20:30)
[2025-07-12] MEDS ORDERED: RX Prepack 6 Tabs Oxycodone 5mg UD ONE (20:35)
[2025-07-12] MEDS ORDERED: Ketorolac Tromethamine 15mg Vial IV PRN (21:40)
[2025-07-12 21:46] LABS: Prothrombin Time Results 11.6 Sec (9.7-11.5)
[2025-07-12 23:48] VITALS: BP 120/73
[2025-07-13] MEDS ORDERED: Ampicillin Sod/Sulbactam Sod 1.5 GM in NS 100 ML IV SCH
[2025-07-13 05:00] VITALS: BP 133/55
--- NOTE | 2025-07-13 05:32 | NUR ---
PATIENT VERY FORGETFUL AND EASILY CONFUSED, HARD TO RE DIRECT, IMPULSIVE TO BSC, BED ALARM ON, RESISTIVE TO FALL PRECAUTIONS. MEDICATED WITH ZYPREXA X1 FOR INCREASED CONFUSION AND AGGITATION. SMALL HARD STOOL, VOIDING, NPO SINCE MIDNIGHT, PATIENT TO HAVE A NEPHROSTOMY PLACED TODAY, IN PATIENTS CONFUSIONS SHE STATED "I AM NOT GOING TO HAVE SURGERY", PATIENT EDUCATED MULITPLE TIMES, CALL LIGHT WITH IN REACH, WILL RELAY TO AM RN
[2025-07-13 05:36] LABS: Hematocrit 27.3 % (33.0-51.0); Hemoglobin 8.7 g/dL (11.5-16.0); Mean Corpuscular HGB Conc 31.9 g/dL (31.5-36.5); Mean Corpuscular Volume 101 fL (80-100); Platelet Count 111 K/mm3 (150-400); RDW Coefficient Variation 21.4 % (11.7-14.2); RDW Standard Deviation 77.3 fL (35.1-46.3)
[2025-07-13 05:39] LABS: BASOPHILS ABSOLUTE AUTO 0.01 K/mm3 (0.00-0.23); BASOPHILS PERCENT AUTO 0 % (0-2); EOSINOPHILS ABSOLUTE AUTO 0.09 K/mm3 (0.00-0.68); EOSINOPHILS PERCENT AUTO 1 % (0-6); IMMATURE GRAN ABSOLUTE AUTO 0.04 K/mm3 (0.00-0.10); IMMATURE GRAN PERCENT AUTO 1 % (0-1); LYMPHOCYTES ABSOLUTE AUTO 0.95 K/mm3 (0.84-5.20); LYMPHOCYTES PERCENT AUTO 14 % (21-46); MONOCYTES ABSOLUTE AUTO 2.14 K/mm3 (0.16-1.47); MONOCYTES PERCENT AUTO 31 % (4-13); NEUTROPHILS ABSOLUTE AUTO 3.74 K/mm3 (1.96-9.15); NEUTROPHILS PERCENT AUTO 54 % (41-73); NRBC ABSOLUTE 0.00 K/mm3 (0.00-0.02); NRBC Auto 0.0 /100 WBC (0.0-0.2)
[2025-07-13 05:57] LABS: BASOPHILS ABSOLUTE MAN 0.06 K/mm3 (0.00-0.23); BASOPHILS PERCENT MAN 1 % (0-2); EOSINOPHILS ABSOLUTE MAN 0.00 K/mm3 (0.00-0.68); EOSINOPHILS PERCENT MAN 0 % (0-6); LYMPHOCYTES ABSOLUTE MAN 1.67 K/mm3 (0.84-5.20); LYMPHOCYTES PERCENT MAN 24 % (21-46); MONOCYTES ABSOLUTE MAN 0.90 K/mm3 (0.16-1.47); MONOCYTES PERCENT MAN 13 % (4-13); NEUTROPHILS ABSOLUTE MAN 4.32 K/mm3 (1.96-9.15); SEG NEUTROPHILS PERCENT MAN 62 % (41-73)
[2025-07-13 06:05] LABS: Alanine Aminotransfer (ALT/SGP 21.0 U/L (12-78); Albumin, Blood 3.5 g/dL (3.4-5.0); Albumin/Globulin Ratio 1.4 (0.8-1.8); Anion Gap 5.0 mmol/L (3-11); Aspartate Aminotrans (AST/SGOT 18.0 U/L (12-37); Bilirubin, Total 0.8 mg/dL (0.1-1.0); Blood Urea Nitrogen 21.0 mg/dL (8-24); CO2, Blood 29.0 mmol/L (21-32); Calcium, Blood 8.2 mg/dL (8.5-10.1); Chloride, Blood 109.0 mmol/L (98-108); Creatinine, Blood 0.61 mg/dL (0.40-1.00); Globulin, Blood 2.5 g/dL (2.2-4.0); Glucose, Blood 92.0 mg/dL (70-99); Potassium, Blood 3.9 mmol/L (3.5-5.5); Sodium, Blood 139.0 mmol/L (136-145); Total Protein, Blood 6.0 g/dL (6.4-8.2)
[2025-07-13 07:44] VITALS: BP 123/71
[2025-07-13] MEDS ORDERED: Lactobacil 2-S.Thermo-Bifido 1 1 Cap PO SCH (09:00)
[2025-07-13] MEDS ORDERED: NS 1,000 ML IV ONE ×2 (11:31→12:02)
[2025-07-13] MEDS ORDERED: Heparin Sodium 1000 Units/ML 10ML MDV ONE (11:31)
[2025-07-13] MEDS ORDERED: FentaNYL Citrate 50 MCG/ML 2 ML Injection ONE (12:11)
[2025-07-13] MEDS ORDERED: Midazolam HCl 1MG / ML 2ML Vial ONE (12:11)
--- NOTE | 2025-07-13 14:41 | NUR ---
Upon receiving a referral for spiritual care, I visited the patient. She is resting and struggles to have any volume as she attempts to talk. She is able to communicate that she has had surgery and that it has been a rough patch. She has a strong Mormonism preethi and welcomes prayer. I provided prayer and encouragement. The patient responded well and showed signs of being strengthened in her preethi. I will continue to remain available to patient and family.
--- NOTE | 2025-07-13 18:28 | NUR ---
SHIFT SUMMARY PT CONT LEVEL OF CARE. PT NOTED TO A&O X1-2 WITH CONFUSION NOTED. PT ALSO NOTED TO BE VERY EMOTIONAL THIS SHIFT. PT HAD NEPHOROSTOMY TUBE PLACED THIS SHIFT TO L SIDE WITH RED URINE NOTED. PT NOTED TO VOICE C/O PAIN AND HAS BEEN MEDICATED PER EMAR SEE MAR FOR MORE DETAILS. PT NOTED TO BE IMPULSIVE AT TIMES AND BED ALARM IS ON FOR SAFTEY.
[2025-07-13 19:18] VITALS: BP 115/48
[2025-07-13] MEDS ORDERED: Albuterol HFA200 ACT/6.7 GM INH INH PRN (19:35)
[2025-07-14 03:28] VITALS: BP 118/61
--- NOTE | 2025-07-14 04:23 | NUR ---
SUMMARY: PT A/O TO SELF AND SURROUNDINGS BUT IS OCCASIONALLY FORGETFULL W/FREQ REMINDERS REQUIRED. BED ALARM ON FOR FALL RISK BUT PT HASN'T BEEN IMPULSIVE THIS SHIFT. SHE CAN BECOME EMOTIONAL AT TIMES BUT CALMS W/REASSURANCE. PT IS POD 1 S/P L.NEPHROSOTOMY TUBE PLACEMENT W/SECUREMENT DEVICE AND DX REMAINING C/D/I, BLOOD RED OUPUT NOTED TO BAG. PRN TYLENOL WAS RECEIVED FOR TOLERABLE RELIEF OF ASSOCIATED PAIN AND PT REPOSITIONED T/O NOCTE FOR IMPROVED COMFORT. SHE ALSO USED BSC TO VOID W/ATTENDS CHANGED PRN FOR URGE INCONTINENCE. IV ABX WERE RECEIVED PER EMAR AND LR INFUSED UNTIL PT ACCIDENTALLY PULLED IV AROUND 0415. STAFF HAVE BEEN UNABLE TO OBTAIN NEW IV ACCESS SINCE, WILL ENSURE DAY STAFF ARE AWARE. NO ACUTE CHANGES, VSS/AFEBRILE. WILL REPORT TO DAY RN.
[2025-07-14 07:31] VITALS: BP 108/51
[2025-07-14] MEDS ORDERED: Polyethylene Glycol 3350 17 gm PO SCH (09:00)
[2025-07-14 09:35] LABS: Hematocrit 23.3 % (33.0-51.0); Hemoglobin 7.5 g/dL (11.5-16.0); Mean Corpuscular HGB Conc 32.2 g/dL (31.5-36.5); Mean Corpuscular Volume 101 fL (80-100); NRBC ABSOLUTE 0.00 K/mm3 (0.00-0.02); NRBC Auto 0.0 /100 WBC (0.0-0.2); Platelet Count 106 K/mm3 (150-400); RDW Coefficient Variation 21.5 % (11.7-14.2); RDW Standard Deviation 78.0 fL (35.1-46.3)
[2025-07-14 09:53] LABS: Anion Gap 5.0 mmol/L (3-11); Blood Urea Nitrogen 21.0 mg/dL (8-24); CO2, Blood 29.0 mmol/L (21-32); Calcium, Blood 7.9 mg/dL (8.5-10.1); Chloride, Blood 111.0 mmol/L (98-108); Creatinine, Blood 0.6 mg/dL (0.40-1.00); Glucose, Blood 158.0 mg/dL (70-99); Potassium, Blood 4.1 mmol/L (3.5-5.5); Sodium, Blood 141.0 mmol/L (136-145)
[2025-07-14 14:20] VITALS: BP 133/55
--- NOTE | 2025-07-14 19:22 | NUR ---
assumed care. pt is a/o x 2-3 mentation waxes and wanes throughout the day. day was uneventful pt has been calling appropriatly and making needs known. left nephrostomy draining large amounts of serosanguinous fluid pt has minimal pain at site. pt has been calling to transfer to BS, urine has minimal spotting of blood noted. h/h though low is still wnl and no need for tranfusion, h/h will be reaasses in the am.
[2025-07-14 19:33] VITALS: BP 134/65
[2025-07-15 03:15] VITALS: BP 143/61
[2025-07-15] MEDS ORDERED: Haloperidol Lactate Inj. 5 MG/ML Injection IV ONE (03:40)
--- NOTE | 2025-07-15 05:37 | NUR ---
SUMMARY: PT A/O TO SELF AND PERSON BUT WAS FREQUENTLY DISORIENTED AND FORGETFUL TO PLACE, SITUATION AND SURROUNDINGS. SHE BECAME VERY EMOTIONAL AND ANXIOUS T/O NOCTE AND REPEATEDLY CALLED INTO HALLS OR WAS IMPULSIVE OOB DEPITE CONSTANT REMINDERS AND REORIENTATION. PT BEGAN PULLING AT LINES, DISCONNECTED OWN IVF AND WAS PUTING NEPHROSTOMY BAG THROUGH THE RAILS OF HER BED "FOR SAFE KEEPING". EDUCATION REITTERATED BUT PT HAS HAD NO MEMORY RECALL THIS SHIFT. SHE BECAME PARANOID AND SKEPTICAL OF NOISES IN SINGH AND REFUSED PO MEDS OFFERED FOR SLEEP/ANXIETY. NOTIFIED AND HALDOL 2MG IV X1 WAS RX'D AND RECEIVED FOR VERY MILD AND BRIEF EFFECT. SHE WAS AGGREEABLE TO PRN TYLENOL AT START OF SHIFT FOR L.FLANK PAIN BUT HASN'T WANTED IT SINCE. L.NEPHROSTOMY SECUREMENT DEVICE AND DX REMAIN INTACT BUT THERE'S NOW A SMALL AMT.OF BLOOD NOTED SURROUNDING INSERTION SITE. BLOOD RED URINE OUTPUT PERSISTS AND PT WAS UP W/SBA TO BSC TO VOID. LR INFUSED PER EMAR AND IV ABX RECEIVED. NO ACUTE CHANGES, VSS/AFEBRILE. WILL REPORT TO DAY RN.
[2025-07-15 06:47] LABS: BASOPHILS ABSOLUTE AUTO 0.01 K/mm3 (0.00-0.23); BASOPHILS PERCENT AUTO 0 % (0-2); EOSINOPHILS ABSOLUTE AUTO 0.12 K/mm3 (0.00-0.68); EOSINOPHILS PERCENT AUTO 3 % (0-6); Hematocrit 21.9 % (33.0-51.0); Hemoglobin 7.0 g/dL (11.5-16.0); IMMATURE GRAN ABSOLUTE AUTO 0.03 K/mm3 (0.00-0.10); IMMATURE GRAN PERCENT AUTO 1 % (0-1); LYMPHOCYTES ABSOLUTE AUTO 0.96 K/mm3 (0.84-5.20); LYMPHOCYTES PERCENT AUTO 20 % (21-46); MONOCYTES ABSOLUTE AUTO 1.61 K/mm3 (0.16-1.47); MONOCYTES PERCENT AUTO 34 % (4-13); Mean Corpuscular HGB Conc 32.0 g/dL (31.5-36.5); Mean Corpuscular Volume 100 fL (80-100); NEUTROPHILS ABSOLUTE AUTO 2.03 K/mm3 (1.96-9.15); NEUTROPHILS PERCENT AUTO 43 % (41-73); NRBC ABSOLUTE 0.00 K/mm3 (0.00-0.02); NRBC Auto 0.0 /100 WBC (0.0-0.2); Platelet Count 104 K/mm3 (150-400); RDW Coefficient Variation 21.2 % (11.7-14.2); RDW Standard Deviation 76.3 fL (35.1-46.3)
[2025-07-15 07:13] LABS: Anion Gap 4.0 mmol/L (3-11); Blood Urea Nitrogen 13.0 mg/dL (8-24); CO2, Blood 31.0 mmol/L (21-32); Calcium, Blood 8.5 mg/dL (8.5-10.1); Chloride, Blood 111.0 mmol/L (98-108); Creatinine, Blood 0.59 mg/dL (0.40-1.00); Glucose, Blood 125.0 mg/dL (70-99); Potassium, Blood 3.6 mmol/L (3.5-5.5); Sodium, Blood 142.0 mmol/L (136-145)
[2025-07-15 07:38] VITALS: BP 136/64
[2025-07-15 12:25] LABS: Hematocrit 22.9 % (33.0-51.0); Hemoglobin 7.4 g/dL (11.5-16.0)
[2025-07-15 16:07] LABS: Hematocrit 22.0 % (33.0-51.0); Hemoglobin 7.0 g/dL (11.5-16.0)
[2025-07-15 16:24] VITALS: BP 141/67
--- NOTE | 2025-07-15 16:54 | NUR ---
THIS RN NOTFIED DR ABOUT PAZ RED URINE OUTPUT AND HGB OF 7.0, ALONG WITH LUNG CRACKLES ON AUSCULTATION AND PT SX OF SOB. D/C'D LR AT THIS TIME. CONT TO MONITOR H/H.
--- NOTE | 2025-07-15 18:48 | NUR ---
PT IS A/Ox3, NOT ORIENTED TO PLACE. UROLOGY WAS CONSULTED FOR PAZ RED URINE OUTPUT, WAS NOTFIED THAT PT SX CAN BE TREATED OUTPATIENT. PT HEMOGLOBIN WAS LOW AT 7.0, NOTIFIED AND STATED BLOOD TRANSFUSION TO BE DONE IF IT DROPS BELOW 7.0. PT IS COOPERATIVE WITH CARE BUT HAS CONFUSION AT TIMES.
[2025-07-15 19:32] VITALS: BP 120/55
[2025-07-15 20:38] LABS: Hematocrit 22.5 % (33.0-51.0); Hemoglobin 7.2 g/dL (11.5-16.0)
[2025-07-16] VITALS (7 sets, daily range): BP systolic 115–139; BP diastolic 48–105
[2025-07-16 02:21] LABS: Hematocrit 20.3 % (33.0-51.0); Hemoglobin 6.4 g/dL (11.5-16.0)
[2025-07-16 02:37] LABS: Anion Gap 4.0 mmol/L (3-11); Blood Urea Nitrogen 12.0 mg/dL (8-24); CO2, Blood 32.0 mmol/L (21-32); Calcium, Blood 8.3 mg/dL (8.5-10.1); Chloride, Blood 111.0 mmol/L (98-108); Creatinine, Blood 0.54 mg/dL (0.40-1.00); Glucose, Blood 85.0 mg/dL (70-99); Potassium, Blood 4.0 mmol/L (3.5-5.5); Sodium, Blood 143.0 mmol/L (136-145)
[2025-07-16] MEDS ORDERED: NS 500 ML IV SCH (03:25)
--- NOTE | 2025-07-16 03:29 | NUR ---
NURSE NOTE PT IS HAVING HEMATURIA WELL PAZ RED BLOOD WITH CLOTS IN HER BRIEF. WHEN SHE STANDS UP FROM COMMODE BLOOD IS DRIPPING ONTO THE FLOOR. DRESSING AT NEPH TUBE SITE IS BLOODY WELL. HGB WAS 6.4 @ 0215. HOSPITALIST NOTIFIED AND BLOOD ORDERED FOR TRANSFUSION. DR. RUELAS CAME TO PT ROOM AND EVALUATED HER. VSS FOR NOW. WILL CONTINUE TO MONITOR.
--- NOTE | 2025-07-16 04:39 | NUR ---
SHIFT SUMMARY 89 YR F. FULL CODE. PT IS CURRENTLY TRANSFUSING 1 UNIT OF PRBC. PLEASE SEE PRIOR NOTE. PT HAS BEEN ALERT THIS SHIFT BUT HAS BOUTS OF CONFUSION SUCH ASKING THIS NURSE TO MAKE SURE HER FRONT DOOR IS LOCKED WHEN I LEAVE THE ROOM, AND TO CHECK ON HER CAT. ITS IF SHE THINKS SHE IS AT HOME. SHE HAS BEEN CONTINENT THIS SHIFT AND NEEDS ASSISTANCE TO THE BSC. PT STATES SHE IS TIRED AND JUST WANTS TO SLEEP. BP IS SOFT AND WILL CONTINUE TO MONITOR THROUGHOUT TRANSFUSION. BED IS IN LOW POSITION WITH ALARM ON AND CALL LIGHT IN REACH.
--- NOTE | 2025-07-16 07:45 | NUR ---
BLOOD TRANSFUSION COMPLETE, NOTIFIED DR. RUBIO OF CONTINUED BLOOD LOSS IN URINE AND CLOTTING OVERNIGHT. PER DR. RUBIO A CBC AND CMP HAS BEEN ORDERED. PT A/Ox3 AND REPORTS FATIGUE. VSS.
[2025-07-16 10:23] LABS: Hematocrit 26.5 % (33.0-51.0); Hemoglobin 8.6 g/dL (11.5-16.0)
[2025-07-16 10:34] LABS: BASOPHILS ABSOLUTE AUTO 0.01 K/mm3 (0.00-0.23); BASOPHILS PERCENT AUTO 0 % (0-2); EOSINOPHILS ABSOLUTE AUTO 0.12 K/mm3 (0.00-0.68); EOSINOPHILS PERCENT AUTO 3 % (0-6); Hematocrit 26.3 % (33.0-51.0); Hemoglobin 8.6 g/dL (11.5-16.0); IMMATURE GRAN ABSOLUTE AUTO 0.04 K/mm3 (0.00-0.10); IMMATURE GRAN PERCENT AUTO 1 % (0-1); LYMPHOCYTES ABSOLUTE AUTO 0.82 K/mm3 (0.84-5.20); LYMPHOCYTES PERCENT AUTO 18 % (21-46); MONOCYTES ABSOLUTE AUTO 1.23 K/mm3 (0.16-1.47); MONOCYTES PERCENT AUTO 28 % (4-13); Mean Corpuscular HGB Conc 32.7 g/dL (31.5-36.5); Mean Corpuscular Volume 97 fL (80-100); NEUTROPHILS ABSOLUTE AUTO 2.24 K/mm3 (1.96-9.15); NEUTROPHILS PERCENT AUTO 50 % (41-73); NRBC ABSOLUTE 0.00 K/mm3 (0.00-0.02); NRBC Auto 0.0 /100 WBC (0.0-0.2); Platelet Count 100 K/mm3 (150-400); RDW Coefficient Variation 21.3 % (11.7-14.2); RDW Standard Deviation 74.4 fL (35.1-46.3)
[2025-07-16 11:07] LABS: Alanine Aminotransfer (ALT/SGP 21.0 U/L (12-78); Albumin, Blood 2.8 g/dL (3.4-5.0); Albumin/Globulin Ratio 1.1 (0.8-1.8); Anion Gap 5.0 mmol/L (3-11); Aspartate Aminotrans (AST/SGOT 23.0 U/L (12-37); Bilirubin, Total 1.2 mg/dL (0.1-1.0); Blood Urea Nitrogen 11.0 mg/dL (8-24); CO2, Blood 30.0 mmol/L (21-32); Calcium, Blood 8.3 mg/dL (8.5-10.1); Chloride, Blood 112.0 mmol/L (98-108); Creatinine, Blood 0.52 mg/dL (0.40-1.00); Globulin, Blood 2.5 g/dL (2.2-4.0); Glucose, Blood 91.0 mg/dL (70-99); Potassium, Blood 4.1 mmol/L (3.5-5.5); Sodium, Blood 143.0 mmol/L (136-145); Total Protein, Blood 5.3 g/dL (6.4-8.2)
[2025-07-16 14:46] LABS: Hematocrit 25.3 % (33.0-51.0); Hemoglobin 8.2 g/dL (11.5-16.0)
--- NOTE | 2025-07-16 17:45 | NUR ---
PT A/Ox3 TODAY. ABLE TO MAKE NEEDS KNOWN WITH CALL LIGHT. 1-2PA TO THE BEDSIDE COMMODE. PT CONTINUES TO HAVE PAZ RED URINE OUTPUT. SHE'S HAD TWO LIQUID STOOLS TODAY. HGB REMAINED STABLE T/O SHIFT.
[2025-07-16 20:36] LABS: Hematocrit 25.0 % (33.0-51.0); Hemoglobin 8.1 g/dL (11.5-16.0)
--- NOTE | 2025-07-17 04:29 | NUR ---
PATIENT ALERT AND ORIENTED X 2-3 DURNG SHIFT, WITH INTERMITTENT CONFUSION. PATIENT IS A 1 ASSIST WITH WALKER. PATIENT HAS NEPHROSTOMY TUBE IN PLACE-DRAINING DARK RED URINE. PATIENT ABLE TO SWALLOW PILLS WHOLE, ONE AT A TIME. LÓPEZ POWERGLIDE. HGB IS AT 8.1. BED IN LOW POSITION WITH WHEELS LOCKED. BED ALARM ON AND CALL LIGHT WITHIN REACH
[2025-07-17 05:15] VITALS: BP 144/61
[2025-07-17] MEDS ORDERED: NS 250 ML IV PRN (05:30)
[2025-07-17 06:40] LABS: BASOPHILS ABSOLUTE AUTO 0.01 K/mm3 (0.00-0.23); BASOPHILS PERCENT AUTO 0 % (0-2); EOSINOPHILS ABSOLUTE AUTO 0.14 K/mm3 (0.00-0.68); EOSINOPHILS PERCENT AUTO 3 % (0-6); Hematocrit 24.2 % (33.0-51.0); Hemoglobin 7.8 g/dL (11.5-16.0); IMMATURE GRAN ABSOLUTE AUTO 0.03 K/mm3 (0.00-0.10); IMMATURE GRAN PERCENT AUTO 1 % (0-1); LYMPHOCYTES ABSOLUTE AUTO 1.11 K/mm3 (0.84-5.20); LYMPHOCYTES PERCENT AUTO 25 % (21-46); MONOCYTES ABSOLUTE AUTO 1.22 K/mm3 (0.16-1.47); MONOCYTES PERCENT AUTO 28 % (4-13); Mean Corpuscular HGB Conc 32.2 g/dL (31.5-36.5); Mean Corpuscular Volume 99 fL (80-100); NEUTROPHILS ABSOLUTE AUTO 1.92 K/mm3 (1.96-9.15); NEUTROPHILS PERCENT AUTO 43 % (41-73); NRBC ABSOLUTE 0.00 K/mm3 (0.00-0.02); NRBC Auto 0.0 /100 WBC (0.0-0.2); Platelet Count 90 K/mm3 (150-400); RDW Coefficient Variation 21.4 % (11.7-14.2); RDW Standard Deviation 75.8 fL (35.1-46.3)
[2025-07-17 07:07] LABS: Alanine Aminotransfer (ALT/SGP 24.0 U/L (12-78); Albumin, Blood 2.9 g/dL (3.4-5.0); Albumin/Globulin Ratio 1.2 (0.8-1.8); Anion Gap 5.0 mmol/L (3-11); Aspartate Aminotrans (AST/SGOT 24.0 U/L (12-37); Bilirubin, Total 0.6 mg/dL (0.1-1.0); Blood Urea Nitrogen 11.0 mg/dL (8-24); CO2, Blood 31.0 mmol/L (21-32); Calcium, Blood 8.3 mg/dL (8.5-10.1); Chloride, Blood 111.0 mmol/L (98-108); Creatinine, Blood 0.52 mg/dL (0.40-1.00); Globulin, Blood 2.4 g/dL (2.2-4.0); Glucose, Blood 94.0 mg/dL (70-99); Potassium, Blood 3.8 mmol/L (3.5-5.5); Sodium, Blood 143.0 mmol/L (136-145); Total Protein, Blood 5.3 g/dL (6.4-8.2)
[2025-07-17 07:41] VITALS: BP 119/55
[2025-07-17 16:16] VITALS: BP 142/64
--- NOTE | 2025-07-17 17:08 | NUR ---
PATIENT COOPERATIVE WITH CARE TODAY. URINE REMAINS BLOODY AND DRAINAGE EMPTIED FROM BAG ON LEFT FLANK. PATIENT YELLS FOR HELP INSTEAD OF ALWAYS USING THE CALL LIGHT BUT USES THE CALL LIGHT FOR RESTROOM ASSISTANCE. CALLED DAUGHTER A COUPLE TIMES THIS SHIFT FOR PATIENT SHE IS CONCERNED ABOUT HER DOG. CALL LIGHT WITHIN REACH.
[2025-07-17 19:35] VITALS: BP 129/68
[2025-07-18 04:35] VITALS: BP 130/56
--- NOTE | 2025-07-18 04:54 | NUR ---
NO ACUTE CHANGES DURING SHIFT. PATIENT ALERT AND ORIENTED X 2-3 WITH CONFUSION. PATIENT IS A 1-2 ASSIST WITH WALKER TO [facility] [place]. L NEPHROSTOMY TUBE DRAINING RED. PATIENT HAS HEMATURIA. LÓPEZ POWERGLIDE IN PLACE. PATIENT WAS MEDICATED FOR ANXIETY SEE EMAR. BED IN LOW POSITION WITH WHEELS LOCKED. BED ALARM ON AND CALL LIGHT WITHIN REACH
[2025-07-18 05:36] LABS: BASOPHILS ABSOLUTE AUTO 0.01 K/mm3 (0.00-0.23); BASOPHILS PERCENT AUTO 0 % (0-2); EOSINOPHILS ABSOLUTE AUTO 0.14 K/mm3 (0.00-0.68); EOSINOPHILS PERCENT AUTO 3 % (0-6); Hematocrit 23.6 % (33.0-51.0); Hemoglobin 7.6 g/dL (11.5-16.0); IMMATURE GRAN ABSOLUTE AUTO 0.03 K/mm3 (0.00-0.10); IMMATURE GRAN PERCENT AUTO 1 % (0-1); LYMPHOCYTES ABSOLUTE AUTO 1.02 K/mm3 (0.84-5.20); LYMPHOCYTES PERCENT AUTO 22 % (21-46); MONOCYTES ABSOLUTE AUTO 1.46 K/mm3 (0.16-1.47); MONOCYTES PERCENT AUTO 32 % (4-13); Mean Corpuscular HGB Conc 32.2 g/dL (31.5-36.5); Mean Corpuscular Volume 100 fL (80-100); NEUTROPHILS ABSOLUTE AUTO 1.92 K/mm3 (1.96-9.15); NEUTROPHILS PERCENT AUTO 42 % (41-73); NRBC ABSOLUTE 0.00 K/mm3 (0.00-0.02); NRBC Auto 0.0 /100 WBC (0.0-0.2); Platelet Count 100 K/mm3 (150-400); RDW Coefficient Variation 20.6 % (11.7-14.2); RDW Standard Deviation 73.0 fL (35.1-46.3)
[2025-07-18 06:34] LABS: Anion Gap 5.0 mmol/L (3-11); Blood Urea Nitrogen 8.0 mg/dL (8-24); CO2, Blood 32.0 mmol/L (21-32); Calcium, Blood 7.9 mg/dL (8.5-10.1); Chloride, Blood 108.0 mmol/L (98-108); Creatinine, Blood 0.48 mg/dL (0.40-1.00); Glucose, Blood 83.0 mg/dL (70-99); Potassium, Blood 3.8 mmol/L (3.5-5.5); Sodium, Blood 141.0 mmol/L (136-145)
[2025-07-18 08:03] VITALS: BP 148/64
[2025-07-18 13:20] LABS: Hematocrit 26.6 % (33.0-51.0); Hemoglobin 8.4 g/dL (11.5-16.0)
[2025-07-18 15:40] VITALS: BP 125/61
[2025-07-18 19:30] VITALS: BP 131/54
[2025-07-18] MEDS ORDERED: LORazepam 2 MG/ML 1ML Injection IV ONE (22:30)
--- NOTE | 2025-07-18 23:03 | NUR ---
GAVE REPORT TO CHAYITO TOVAR FOR TRANSFER OF CARE @ 7395.
--- NOTE | 2025-07-19 01:04 | NUR ---
TOOK OVER CARE OF PATIENT AT 07/18/25 AT 2300. PATIENT ALERT AND ORIENTED TO SELF, CONFUSED. PATIENT AWAKE IN BED. BED IN LOW POSITION WITH WHEELS LOCKED. BED ALARM NIGHT AUDITOR LIGHT WITHIN REACH
[2025-07-19 03:21] VITALS: BP 122/59
[2025-07-19 05:12] LABS: BASOPHILS ABSOLUTE AUTO 0.01 K/mm3 (0.00-0.23); BASOPHILS PERCENT AUTO 0 % (0-2); EOSINOPHILS ABSOLUTE AUTO 0.12 K/mm3 (0.00-0.68); EOSINOPHILS PERCENT AUTO 3 % (0-6); Hematocrit 25.5 % (33.0-51.0); Hemoglobin 7.9 g/dL (11.5-16.0); IMMATURE GRAN ABSOLUTE AUTO 0.02 K/mm3 (0.00-0.10); IMMATURE GRAN PERCENT AUTO 0 % (0-1); LYMPHOCYTES ABSOLUTE AUTO 1.02 K/mm3 (0.84-5.20); LYMPHOCYTES PERCENT AUTO 23 % (21-46); MONOCYTES ABSOLUTE AUTO 1.29 K/mm3 (0.16-1.47); MONOCYTES PERCENT AUTO 29 % (4-13); Mean Corpuscular HGB Conc 31.0 g/dL (31.5-36.5); Mean Corpuscular Volume 101 fL (80-100); NEUTROPHILS ABSOLUTE AUTO 2.02 K/mm3 (1.96-9.15); NEUTROPHILS PERCENT AUTO 45 % (41-73); NRBC ABSOLUTE 0.00 K/mm3 (0.00-0.02); NRBC Auto 0.0 /100 WBC (0.0-0.2); Platelet Count 110 K/mm3 (150-400); RDW Coefficient Variation 19.9 % (11.7-14.2); RDW Standard Deviation 72.5 fL (35.1-46.3)
[2025-07-19 05:26] LABS: Anion Gap 3.0 mmol/L (3-11); Blood Urea Nitrogen 9.0 mg/dL (8-24); CO2, Blood 34.0 mmol/L (21-32); Calcium, Blood 7.8 mg/dL (8.5-10.1); Chloride, Blood 107.0 mmol/L (98-108); Creatinine, Blood 0.49 mg/dL (0.40-1.00); Glucose, Blood 80.0 mg/dL (70-99); Potassium, Blood 3.8 mmol/L (3.5-5.5); Sodium, Blood 140.0 mmol/L (136-145)
--- NOTE | 2025-07-19 06:35 | NUR ---
PT BECAME VERY AGITATED AND UNCOOPERATIVE DURING SHIFT. MD WAS NOTIFIED AND IV ATIVAN WAS GIVEN. PATIENT IS ALERT AND ORIENTED X2 WITH CONFUSION. PATIENT IS ON 2 L NC FOR COMFORT CONTINUOUS PULSE OX IN PLACE. PATIENT IS UP WITH 1 ASSIST AND FWW. LÓPEZ POWERGLIDE IN PLACE. NEPROSTOMY TUBE TO L SIDE DRAINING RED. PATIENT HAS HEMATURIA-MD IS AWARE. BED IS IN LOW POSITION WITH WHEELS LOCKED. BED ALARM ON AND CALL LIGHT WITHIN REACH.
[2025-07-19 15:53] VITALS: BP 121/62
--- NOTE | 2025-07-19 16:41 | NUR ---
SHIFT SUMMARY PATIENT PRESENTING WITH ANXIETY MOST OF SHIFT, ONLY ACCEPTED MEDICATIONS ABOUT 1600. MULTIPLE FAMILY MEMBERS IN TO VISIT, PATIENT BECAME VERY DEMANDING AND MORE CONFUSED DURING THESE TIMES. DIDN'T REMEMBER FAMILY MEMBERS NAMES OR RELATIONS, DIDN'T RECOGNIZE NURSE FROM PAST 2 DAYS, DIDN'T REMEMBER HAVING NEPH TUBE PLACED OR HER DOG BEING IN A FEW HOURS EARLIER. URINE CONTINUES TO BE RED TINGED. L NEPH TUBE DRESSING INTACT, DRAINING RED URINE. IS NOT USING CALL LIGHT, YELLING OUT INTO SINGH. NOT ALWAYS ABLE TO MAKE NEEDS KNOWN. BED LOW WITH ALARM. CALL LIGHT IN REACH, STAFF POSITIONED CLOSE TO ROOM.
--- NOTE | 2025-07-19 18:20 | NUR ---
PATIENT ATTEMPTING TO SIT ON FLOOR, YELLING AT STAFF, CUSSING AT STAFF. STATING SHE IS IN SNF, THAT SHE HAS BEEN ARRESTED. ASSISTED BACK TO BED. REFUSING TO STAY IN BED, SITTING ON EDGE OF BED, ALARM ON. ON CELL PHONE WITH FAMILY AT THIS TIME.
[2025-07-19 20:24] VITALS: BP 131/68
[2025-07-19] MEDS ORDERED: LORazepam 2 MG/ML 1ML Injection IV ONE (20:30)
--- NOTE | 2025-07-20 03:56 | NUR ---
SHIFT SUMMARY 89 YR F ADMITTED ON 07/12/25. FULL CODE. PT BECAME VERY AGITATED SHORTLY INTO THIS SHIFT. WHEN ASSISTED TO THE BSC SHE BECAME UNCOOPERATIVE, MAKING IT DIFFICULT TO GET HER BACK INTO BED. WHEN THIS NURSE ASSISTED WITH LIFTING PT'S LEGS INTO THE BED SHE BEGAN SCREAMING THAT I HAD NO RIGHT TO TIE HER LEGS DOWN. PT WAS ASSURED THIS IS NOT WHAT WAS HAPPENING AND SHE HAD HER DAUGHTER ON THE PHONE AT THE TIME. THIS NURSE SPOKE WITH DAUGHTER AND EXPLAINED THE SITUATION. DAUGHTER STATED SHE UNDERSTOOD. HOSPITALIST WAS NOTIFIED AND ORDER FOR IV ATIVAN WAS PLACED. THIS WAS VERY EFFECTIVE IN CALMING PT DOWN AND SHE WAS ABLE TO FALL ASLEEP. SHE APPEARS TO HAVE RESTED COMFORTABLY THUS FAR. THIS NURSE SAT OUTSIDE OF PT'S ROOM THROUGHT THIS SHIFT TO MONITOR PT CLOSELY. BED IS IN LOW POSITION AND CALL LIGHT IN REACH.
[2025-07-20 06:20] LABS: Hematocrit 24.8 % (33.0-51.0); Hemoglobin 7.9 g/dL (11.5-16.0); Mean Corpuscular HGB Conc 31.9 g/dL (31.5-36.5); Mean Corpuscular Volume 100 fL (80-100); Platelet Count 114 K/mm3 (150-400); RDW Coefficient Variation 19.6 % (11.7-14.2); RDW Standard Deviation 71.7 fL (35.1-46.3)
[2025-07-20 06:22] LABS: BASOPHILS ABSOLUTE AUTO 0.01 K/mm3 (0.00-0.23); BASOPHILS PERCENT AUTO 0 % (0-2); EOSINOPHILS ABSOLUTE AUTO 0.12 K/mm3 (0.00-0.68); EOSINOPHILS PERCENT AUTO 3 % (0-6); IMMATURE GRAN ABSOLUTE AUTO 0.02 K/mm3 (0.00-0.10); IMMATURE GRAN PERCENT AUTO 1 % (0-1); LYMPHOCYTES ABSOLUTE AUTO 0.91 K/mm3 (0.84-5.20); LYMPHOCYTES PERCENT AUTO 21 % (21-46); MONOCYTES ABSOLUTE AUTO 1.29 K/mm3 (0.16-1.47); MONOCYTES PERCENT AUTO 30 % (4-13); NEUTROPHILS ABSOLUTE AUTO 1.94 K/mm3 (1.96-9.15); NEUTROPHILS PERCENT AUTO 45 % (41-73); NRBC ABSOLUTE 0.00 K/mm3 (0.00-0.02); NRBC Auto 0.0 /100 WBC (0.0-0.2)
[2025-07-20 06:40] LABS: Anion Gap 4.0 mmol/L (3-11); Blood Urea Nitrogen 6.0 mg/dL (8-24); CO2, Blood 32.0 mmol/L (21-32); Calcium, Blood 8.4 mg/dL (8.5-10.1); Chloride, Blood 108.0 mmol/L (98-108); Creatinine, Blood 0.42 mg/dL (0.40-1.00); Glucose, Blood 85.0 mg/dL (70-99); Potassium, Blood 3.8 mmol/L (3.5-5.5); Sodium, Blood 140.0 mmol/L (136-145)
[2025-07-20 06:55] LABS: BASOPHILS ABSOLUTE MAN 0.08 K/mm3 (0.00-0.23); BASOPHILS PERCENT MAN 2 % (0-2); EOSINOPHILS ABSOLUTE MAN 0.08 K/mm3 (0.00-0.68); EOSINOPHILS PERCENT MAN 2 % (0-6); LYMPHOCYTES ABSOLUTE MAN 1.20 K/mm3 (0.84-5.20); LYMPHOCYTES PERCENT MAN 28 % (21-46); MONOCYTES ABSOLUTE MAN 1.20 K/mm3 (0.16-1.47); MONOCYTES PERCENT MAN 28 % (4-13); NEUTROPHILS ABSOLUTE MAN 1.71 K/mm3 (1.96-9.15); SEG NEUTROPHILS PERCENT MAN 40 % (41-73)
[2025-07-20 08:00] VITALS: BP 132/57
--- NOTE | 2025-07-20 15:09 | NUR ---
RECEIVED D/C ON PT TO HOME WITH [facility]. UPDATED DR. RUBIO. PT FIRST STATED NO CARE AT HOME. NOW STATES 5HR / DAY. PT IS ADAMENT NO FACILITY, BUT STILL 1 MIN ASST TO BSC. STILL REQUIRING 1L O2 TO KEEP >90%. DOES DROP TO 87% WHILE IN BED ON R/A. DR RUBIO IN AND DISCUSSED WITH PT. SHE AGREED TO GO TO SNF FOR REHAB
[2025-07-20 16:34] VITALS: BP 146/68
--- NOTE | 2025-07-20 17:36 | NUR ---
L POSTERIOR NEPHROSTOMY TUBE DRESSING CHANGED, PT CATRACHITO WELL
--- NOTE | 2025-07-20 17:39 | NUR ---
RN NIGHT PERFORMED DRESSING CHANGE ON NEPH TUBE
--- NOTE | 2025-07-20 18:02 | NUR ---
PT QUITE PLEASANT, OFTEN TEARFUL WHEN TALKING ABOUT HER DOG, WAS TO DISCHARGE HOME, BUT IS ON 1L O2, CONFUSED AT TIMES. QUITE CHILDLIKE IN SPEACH. MORE CONFUSED THIS AFTERNOON. DENIED CAREGIVER, THEN, DID AGREE HAS CAREGIVER FOR A TIME EACH DAY. THEN STATES THEY JUST WATCH PHONES AND LAUGH. DISCUSSED CONCERNS WITH CARE MGMT AND DR. GAMINO HOLDING PT OVERNNIGHT, AND WILL BE D/C TO SNF FOR REHAB/ DRESSING CHANGE ON NEPH TUBE. NO OTHER CONCERNS NOTED. BED IN LOW POSITION, CALL LITE IN REACH, BED ALARM ON FOR SAFETY
[2025-07-20 19:39] VITALS: BP 103/57
--- NOTE | 2025-07-21 03:43 | NUR ---
SHIFT SUMMARY- A&Ox2. ANXIOUS AND CONFUSED BUT COOPERATIVE IF CARE IS EXPLAINED TO HER AND HANDLED WITH PATIENCE. SHE DOES NOT USE THE CALL LIGHT AND GETS SCARED IF SHE IS LEFT ALONE FOR TOO LONG. PATIENT IS ON CONTINUOUS PULSE OX MONITORING WITH NO ISSUES WITH PULSE OR O2 OVERNIGHT. PATIENT IS USING 1/L O2 BY NASAL CANNULA. BREATHING EVEN AND UNLABORED. PATIENT IS INCONTINENT OF BOWEL AND BLADDER. SHE HAS A PUREWICK IN PLACE. NEPHROSTOMY TUBE IN PLACE, DRAINING MISTY COLORED URINE. THERE HAS BEEN NO BM ON THIS SHIFT. PATIENT IS A ONE PERSON ASSESS FOR AMBULATION. MEDS WHOLE c FLUIDS. BED IN LOWEST POSITION, CALL LIGHT WITHIN REACH, ALL NEEDS MET. REPORT TO ONCOMING NURSE.
[2025-07-21 05:00] VITALS: BP 128/72
[2025-07-21 05:43] LABS: BASOPHILS ABSOLUTE AUTO 0.02 K/mm3 (0.00-0.23); BASOPHILS PERCENT AUTO 0 % (0-2); EOSINOPHILS ABSOLUTE AUTO 0.10 K/mm3 (0.00-0.68); EOSINOPHILS PERCENT AUTO 2 % (0-6); Hematocrit 24.4 % (33.0-51.0); Hemoglobin 7.6 g/dL (11.5-16.0); IMMATURE GRAN ABSOLUTE AUTO 0.02 K/mm3 (0.00-0.10); IMMATURE GRAN PERCENT AUTO 0 % (0-1); LYMPHOCYTES ABSOLUTE AUTO 0.84 K/mm3 (0.84-5.20); LYMPHOCYTES PERCENT AUTO 18 % (21-46); MONOCYTES ABSOLUTE AUTO 1.45 K/mm3 (0.16-1.47); MONOCYTES PERCENT AUTO 32 % (4-13); Mean Corpuscular HGB Conc 31.1 g/dL (31.5-36.5); Mean Corpuscular Volume 100 fL (80-100); NEUTROPHILS ABSOLUTE AUTO 2.18 K/mm3 (1.96-9.15); NEUTROPHILS PERCENT AUTO 47 % (41-73); NRBC ABSOLUTE 0.00 K/mm3 (0.00-0.02); NRBC Auto 0.0 /100 WBC (0.0-0.2); Platelet Count 106 K/mm3 (150-400); RDW Coefficient Variation 19.4 % (11.7-14.2); RDW Standard Deviation 69.8 fL (35.1-46.3)
[2025-07-21 06:04] LABS: Anion Gap 6.0 mmol/L (3-11); Blood Urea Nitrogen 5.0 mg/dL (8-24); CO2, Blood 32.0 mmol/L (21-32); Calcium, Blood 8.2 mg/dL (8.5-10.1); Chloride, Blood 107.0 mmol/L (98-108); Creatinine, Blood 0.45 mg/dL (0.40-1.00); Glucose, Blood 78.0 mg/dL (70-99); Potassium, Blood 3.6 mmol/L (3.5-5.5); Sodium, Blood 141.0 mmol/L (136-145)
[2025-07-21 07:25] VITALS: BP 111/43
--- NOTE | 2025-07-21 12:01 | NUR ---
MET WITH PATIENT TO DISCUSS GOALS OF CARE. ASSISTED BLENDER HELPER TO MOVE PATIENT TO CHAIR. PATIENT REPORTS THAT SHE LIVES AT HOME ALONE WITH HER DOG "SUGAR BEAR". WE DISCUSSED CODE STATUS. PATIENT EXPRESSED THAT SHE WOULD LIKE TO REMAIN A FULL CODE BECAUSE SHE BELIEVES IT IS WHAT HER DAUGHTER WOULD WANT. ATTEMPTED TO CALL DAUGHTER JAZMIN, LEFT . CALLED PATIENTS OTHER DAUGHTER NIRMALA AND SPOKE BREIFLY. SHE REPORTED THAT PATIENT HAS BEEN CONFUSED AND WAS AT ONE POINT COMBATIVE. SHE WAS AT WORK SO SHE REQUESTED A CALL BACK.
[2025-07-21 16:14] VITALS: BP 119/48
--- NOTE | 2025-07-21 16:40 | NUR ---
MET PATIENTS DAUGHTER NIRMALA AT THE ROOM. DISCUSSED PATIENTS COGNITION. PROVIDED WRITTEN MATERIALS.
--- NOTE | 2025-07-21 18:12 | NUR ---
SUMMARY- PT ALERT TO SELF, PERIODS OF CONFUSION AND ANXIETY. REDIRECTABLE WITH FREQ REASSURANCE. BED/CHAIR ALARMS IN USE. PT UP TO CHAIR FOR MEALS. UP TO BEDSIDE COMMODE ONCE TODAY AND PT VOIDED, INCONTINENT THE REST OF THE TIME. NEPH TUBE L SECURED, DEVICE WITH NO SHADOWING, CDI, URINE IS BLOOD TINGED, PEACH, CLEAR. PAIN AT INCISION SITE CONTROLLED WITH TRAMADOL BID TODAY. LUNGS CLEAR WITH CRACKLES IN THE BASES, O2 1L NC, CONT PULSE OX 94%, PT OCC TAKES O2 OFF AND DESATS TO 88-91%. PLAN FOR PT TO GO TO SNF FOR PHYSICAL THERAPY PT'S FAMILY CANT CARE FOR HER AT HOME.
[2025-07-21 19:30] VITALS: BP 112/43
[2025-07-22 03:18] VITALS: BP 105/44
--- NOTE | 2025-07-22 04:42 | NUR ---
SHIFT SUMMARY PATIENT ALERT AND ORIENTED X1-2. PATIENT IS FORGETFUL AND CONFUSED. PATIENT AWOKE ABRUPTLY, APPEARED FRIGHTENED AND VERBALIZED FEAR THAT SOMEONE WAS GOING TO HARM HER. PATIENT REORIENTED. PATIENT DOES NOT USE HER CALL LIGHT AND YELL INSTEAD WHEN SHE NEEDS HELP. NO ACUTE CHANGES DURING THIS SHIFT AND VITAL SIGNS STABLE. PLEASANT AND COOPERATIVE WITH CARE. SELF-REPOSITIONED THROUGHOUT THE SHIFT. HARJINDER LOCKED AND IN LOWEST POSITION. CALL LIGHT WITHIN REACH.
[2025-07-22 05:18] LABS: Hematocrit 25.2 % (33.0-51.0); Hemoglobin 8.0 g/dL (11.5-16.0)
[2025-07-22 07:27] VITALS: BP 112/44
[2025-07-22 15:32] VITALS: BP 125/50
--- NOTE | 2025-07-22 17:11 | NUR ---
NO ACUTE CHANGES THIS SHIFT. PT IS ALERT AND ORIENTED TO SELF/PERSON. USES CALL LIGHT APPROPRIATELY THIS SHIFT. TEARFUL, EXPRESSES SADNES RELATED TO MISSING HER DOG. PLAN TO D/C POSSIBLE TOMORROW
[2025-07-22 19:19] VITALS: BP 125/34
--- NOTE | 2025-07-23 05:23 | NUR ---
SHIFT SUMMARY PT ALERT TO SELF. PLEASANTLY CONFUSED. SOME MILD ANXIETY AT NIGHT, PT REPORTS FEELING AFRAID. EASILY COMFORTED WITH REASURANCE OF HER SAFETY AND SITTING WITH PT FOR A FEW MINUTES. MEDICATED FOR BACK PAIN PER EMAR. NEPHROSTOMY IN PLACE A DRAINING PINK TINGED URINE. PT SPEAKS OFTEN OF HER DOG "SUGAR BEAR". VSS. PT ABLE TO SLEEP FOR SEVERAL HOURS AT A TIME DURING THE NIGHT. BED ALARM ON. BED IN LOWEST POSITION AND CALL LIGHT IN REACH.
[2025-07-23 07:59] VITALS: BP 130/49
[2025-07-23] MEDS ORDERED: Acetaminophen650 M1 PO (13:17)
--- NOTE | 2025-07-23 15:00 | NUR ---
PT DISCHARGED TO [facility]. REPORT GIVEN TO RN AT FACITLY. PT IS ANXIOUS ABOUT THE TRANSFER. PROVIDED COMFORTING REASSURANCE. ALERT AND ORIENTED X2, AT HER BASELINE. USES CALL LIGHT APPROPRIATLY.
--- NOTE | 2025-07-23 15:56 | NUR ---
MET WITH PATIENT FOR SUPPORTATIVE VISIT. DISCUSSED CASE WITH PHOTOVOLTAIC SOLAR CELL DESIGNER. PATIENT IS DISCHARGING THIS SHIFT TO [facility]. THEN PRUSUE [facility] PLACMENT
== END 2025-07-23 14:30 | DRG 694 ==
LOC: ER 18:05 → SURS 21:21 → MEDS 21:21
PROVIDERS: Family Medicine; Internal Medicine; Student in an Organized Health Care Education/Training Program; ADMIT Internal Medicine
PROC: 3E03329 Introduction of Other Anti-infective into Peripheral Vein, Percutaneous Approach (ICD-10-PCS; principal; 2025-07-13)
PROC: 0T913ZZ Drainage of Left Kidney, Percutaneous Approach (ICD-10-PCS; 2025-07-13)
PROC: 30233N1 Transfusion of Nonautologous Red Blood Cells into Peripheral Vein, Percutaneous Approach (ICD-10-PCS; 2025-07-16)
DX: N13.2 Hydronephrosis with renal and ureteral calculous obstruction (principal); D62 Acute posthemorrhagic anemia; I10 Essential (primary) hypertension; E11.9 Type 2 diabetes mellitus without complications; J44.9 Chronic obstructive pulmonary disease, unspecified; F03.90 Unspecified dementia, unspecified severity, without behavioral disturbance, psychotic disturbance, mood disturbance, and anxiety; M19.90 Unspecified osteoarthritis, unspecified site; Z66 Do not resuscitate; D69.6 Thrombocytopenia, unspecified; D46.9 Myelodysplastic syndrome, unspecified; M81.0 Age-related osteoporosis without current pathological fracture; K21.9 Gastro-esophageal reflux disease without esophagitis; K59.00 Constipation, unspecified; F41.9 Anxiety disorder, unspecified; R07.9 Chest pain, unspecified; Z90.710 Acquired absence of both cervix and uterus; Z98.42 Cataract extraction status, left eye; Z98.41 Cataract extraction status, right eye; Z98.890 Other specified postprocedural states; Z87.891 Personal history of nicotine dependence; Z79.52 Long term (current) use of systemic steroids; Z79.899 Other long term (current) drug therapy; Z88.5 Allergy status to narcotic agent
CPT/HCPCS: 36415; 36430; 74175; 74177; 74178; 76937; 80048; 80053; 81001; 82947; 85014; 85018; 85025; 85027; 85610; 85730; 86850; 86900; 86901; 86923; 87040; 87086; 94640; 94664; 94760; 94762; 96365-59; 97110; 97161; 97166; 97530; 97535; 99152; 99153; 99285-25; A6590; A9270; C1729; C1751; C1769; C1894; J0295; J0696; J1630; J1644; J1885; J2060; J2250; J3010; J7030; J7050; J7120; P9016; Q9967

== ENCOUNTER 2025-10-27 07:00 | Observation (INO) | payer MEDICARE, OTHER ==
[~2025-10-27] VITALS: Ht 162.6 cm; Wt 54.4 kg
[2025-10-27 10:31] LABS: Hematocrit 24.4 % (33.0-51.0); Hemoglobin 7.6 g/dL (11.5-16.0); Mean Corpuscular HGB Conc 31.1 g/dL (31.5-36.5); Mean Corpuscular Volume 100 fL (80-100); Platelet Count 142 K/mm3 (150-400); RDW Coefficient Variation 22.6 % (11.7-14.2); RDW Standard Deviation 80.8 fL (35.1-46.3)
[2025-10-27 10:34] LABS: NRBC ABSOLUTE 0.02 K/mm3 (0.00-0.02); NRBC Auto 0.4 /100 WBC (0.0-0.2)
[2025-10-27 10:55] LABS: Alanine Aminotransfer (ALT/SGP 20.0 U/L (12-78); Albumin, Blood 2.9 g/dL (3.4-5.0); Albumin/Globulin Ratio 0.8 (0.8-1.8); Anion Gap 6.0 mmol/L (3-11); Aspartate Aminotrans (AST/SGOT 24.0 U/L (12-37); Bilirubin, Total 1.0 mg/dL (0.1-1.0); Blood Urea Nitrogen 14.0 mg/dL (8-24); CO2, Blood 31.0 mmol/L (21-32); Calcium, Blood 8.5 mg/dL (8.5-10.1); Chloride, Blood 103.0 mmol/L (98-108); Creatinine, Blood 0.41 mg/dL (0.40-1.00); Globulin, Blood 3.7 g/dL (2.2-4.0); Glucose, Blood 93.0 mg/dL (70-99); Potassium, Blood 4.4 mmol/L (3.5-5.5); Sodium, Blood 136.0 mmol/L (136-145); Total Protein, Blood 6.6 g/dL (6.4-8.2)
[2025-10-27 10:59] LABS: BAND PERCENT MAN 1 % (0-8); BASOPHILS ABSOLUTE MAN 0.00 K/mm3 (0.00-0.23); BASOPHILS PERCENT MAN 0 % (0-2); EOSINOPHILS ABSOLUTE MAN 0.05 K/mm3 (0.00-0.68); EOSINOPHILS PERCENT MAN 1 % (0-6); LYMPHOCYTES ABSOLUTE MAN 0.98 K/mm3 (0.84-5.20); LYMPHOCYTES PERCENT MAN 19 % (21-46); MONOCYTES ABSOLUTE MAN 0.77 K/mm3 (0.16-1.47); MONOCYTES PERCENT MAN 15 % (4-13); MYELOCYTE ABSOLUTE MAN 0.05 K/mm3 (0.00-0.00); MYELOCYTE PERCENT MAN 1 % (0-0); NEUTROPHILS ABSOLUTE MAN 3.31 K/mm3 (1.96-9.15); SEG NEUTROPHILS PERCENT MAN 63 % (41-73)
[2025-10-27] MEDS ORDERED: NS 1,000 ML IV ONE (12:05)
[2025-10-27 12:18] VITALS: BP 101/85
[2025-10-27] MEDS ORDERED: FLU VACC TS2025(65UP)/MF59C/PF 45 MCG/0.5 ML SYRINGE IM SCH (13:20)
--- NOTE | 2025-10-27 14:16 | NUR ---
RECEIVED REPORT FROM CHAYITO WARREN AND ASSUMING CARE. PURE WICK PLACED. PT RESTING WITH EYES CLOSED. PT WAKES EASILY TO VERBAL STIMULI.
--- NOTE | 2025-10-27 14:18 | NUR ---
WAITING FOR [facility] RIDE BACK TO [facility]
--- NOTE | 2025-10-27 15:10 | NUR ---
IV D/C, CATHETER INTACT. COBAN PLACED. PT RESTING WITH EYES CLOSED.
--- NOTE | 2025-10-27 16:02 | NUR ---
DR VIZCAINO IN TO SEE PT. SUGEY FOR DISCHARGE BACK TO [facility]
== END 2025-10-28 06:27 | disposition home or self-care (01) ==
LOC: ER 07:00 → MEDS 07:01
PROVIDERS: Student in an Organized Health Care Education/Training Program; ADMIT Hospitalist
DX: T83.022A Displacement of nephrostomy catheter, initial encounter (principal); F03.90 Unspecified dementia, unspecified severity, without behavioral disturbance, psychotic disturbance, mood disturbance, and anxiety; C94.6 Myelodysplastic disease, not elsewhere classified; E11.9 Type 2 diabetes mellitus without complications; I10 Essential (primary) hypertension; J44.9 Chronic obstructive pulmonary disease, unspecified; Z87.891 Personal history of nicotine dependence; Z88.5 Allergy status to narcotic agent
CPT/HCPCS: 80053; 82947; 85025; 99284; C1729; C1769; C1887; G0378; J7030